=== PATIENT | female | born 1940 | race Caucasian/White ===

== ENCOUNTER 2018-12-16 10:50 | Inpatient (IN) ==
[2018-12-10 17:49] LABS: Appearance,Urine CLEAR; Bilirubin,Urine NEG (NEG); Color,Urine STRAW; Glucose,Urine (UA) NEGATIVE (NEG); Leukocyte Esterase,Urine NEG /uL (NEG); Protein,Urine NEG (NEG); Specific Gravity,Urine 1.013 (1.000-1.035); Urine Blood NEG mg/dL (<0.03); Urobilinogen,Urine NEG (NEG)
[2018-12-10 18:50] LABS: Basophils # (Auto) 0 K/mcL (0.0-0.3); Basophils % (Auto) 0.6 % (0.0-2.0); Eosinophils # (Auto) 0.3 K/mcL (0.0-0.7); Eosinophils % (Auto) 3.2 % (0.0-7.0); Granulocytes % (Auto) 70.3 % (38.0-78.0); Lymphocytes # (Auto) 1.5 K/mcL (1.5-4.8); Lymphocytes % (Auto) 17.4 % (15.5-49.0); Mean Corpuscular HGB Conc 32.9 g/dL (31.0-36.0); Monocytes # (Auto) 0.7 K/mcL (0.1-0.9); Monocytes % (Auto) 8.5 % (1.0-12.0); Platelet Count 219 K/mcL (140-440); RBC 4.51 M/mcL (4.00-5.20); Red Cell Distribution Width 16.3 % (11.5-14.5)
[2018-12-10 19:34] LABS: Hemoglobin A1C 6.9 % HGB (4.0-6.0)
[2018-12-10 20:29] LABS: Blood Urea Nitrogen 33 mg/dl (8-23)
[~2018-12-16 10:50] MED LIST: 0.9 % SODIUM CHLORIDE 9 ML, KETOROLAC 30 MG, ROPIVACAINE HCL/PF 49.5 ML, EPINEPHrine 0.... IJ SCH; CELECOXIB 200 MG CAPSULE PO SCH; PREGABALIN 75 MG CAPSULE PO SCH; ceFAZolin 1 GM VIAL IV SCH; oxyCODONE 10 MG TAB.ER.12H PO SCH
[2018-12-16] MEDS ORDERED: KETAMINE 100 MG/ML ML IV ONE (13:50)
[2018-12-16] MEDS ORDERED: ONDANSETRON 4 MG/2 ML VIAL IV ONE (13:50)
[2018-12-16] MEDS ORDERED: ROPIVACAINE HCL/PF 30 ML VIAL IJ ONE (13:50)
[2018-12-16] MEDS ORDERED: PHENYLEPHRINE 10 MG/ML VIAL IV ONE (13:50)
[2018-12-16] MEDS ORDERED: TRANEXAMIC ACID 1,000 MG/10 ML VIAL IV ONE (13:50)
[2018-12-16] MEDS ORDERED: MIDAZOLAM 5 MG/5 ML VIAL IV ONE (13:50)
[2018-12-16] MEDS ORDERED: GLYCOPYRROLATE 0.2 MG/ML VIAL IV ONE (13:50)
[2018-12-16] MEDS ORDERED: EPINEPHrine 1 MG/ML AMPUL IV ONE (13:50)
[2018-12-16] MEDS ORDERED: LIDOCAINE HCL/PF 100 MG/5 ML SYRINGE IV ONE (13:50)
[2018-12-16] MEDS ORDERED: PROPOFOL 200 MG/20 ML VIAL IV ONE (13:50)
[2018-12-16] MEDS ORDERED: GENTAMICIN SULFATE 800 MG/20 ML VIAL IR ONE (14:28)
[2018-12-16] MEDS ORDERED: MEPERIDINE 25 MG/ML SYRINGE IV PRN (15:52)
[2018-12-16] MEDS ORDERED: ACETAMINOPHEN 1,000 MG/100 ML BOTTLE IV ONE (15:52)
[2018-12-16] MEDS ORDERED: METHOCARBAMOL 1,000 MG/10 ML VIAL IV PRN (15:52)
[2018-12-16] MEDS ORDERED: IPRATROPIUM/ALBUTEROL 3 ML AMPUL.NEB NEB PRN (15:52)
[2018-12-16] MEDS ORDERED: ONDANSETRON 4 MG/2 ML VIAL IV PRN ×2 (15:52→15:56)
[2018-12-16] MEDS ORDERED: oxyCODONE/APAP 10/325MG TABLET PO PRN (15:54)
--- NOTE | 2018-12-16 15:54 | Brief Operative Note ---
Pre-op diagnosis: right knee oa Post-op diagnosis: same Procedure: right total knee arthroplasty Grafts/Implants: Yes Anesthesia: spinal Complications: none Surgeon: Roland Recinos Ceramic Tile Setter: Otilia Mendoza Estimated blood loss (cc): 150 Tourniquet Time (Minutes): 70 Specimens Removed/Pathology: none sent Condition: stable Disposition: PACU
[2018-12-16] MEDS ORDERED: FLEETS ADULT ENEMA PR PRN (15:56)
[2018-12-16] MEDS ORDERED: MAGNESIUM HYDROXIDE 30 ML ORAL.SUSP PO PRN (15:56)
[2018-12-16] MEDS ORDERED: BISACODYL 10 MG SUPP.RECT PR PRN (15:56)
[2018-12-16] MEDS ORDERED: oxyCODONE HCL 5 MG TABLET PO PRN (15:56)
[2018-12-16] MEDS ORDERED: POLYETHYLENE GLYCOL 3350 17 GM PACKET PO PRN (15:56)
[2018-12-16] MEDS ORDERED: ONDANSETRON 4 MG ODT TABLET SL PRN (15:56)
[2018-12-16] MEDS ORDERED: DEXTROSE 31 GM ORAL.SUSP PO PRN (15:56)
[2018-12-16] MEDS ORDERED: DEXTROSE 50% 50 ML VIAL IV PRN (15:56)
[2018-12-16] MEDS ORDERED: TRANEXAMIC ACID 1,000 MG/10 ML VIAL IV SCH (15:56)
[2018-12-16] MEDS ORDERED: BENZOCAINE/MENTHOL 1 LOZENGE PO PRN (15:56)
[2018-12-16] MEDS ORDERED: LACTATED RINGERS 1,000 ML IV SCH (16:00)
[2018-12-16] MEDS: fentaNYL 100 MCG/2 ML VIAL IV PRN ×4 (16:30→16:48)
--- NOTE | 2018-12-16 17:18 | XRay Report ---
CLINICAL INFORMATION: Postsurgical follow-up TECHNIQUE: AP and a stable lateral portable right knee COMPARISON: None. FINDINGS: Status post right total knee arthroplasty. Alignment is anatomic. There is postsurgical soft tissue and intra-articular gas IMPRESSION: Status post right total knee arthroplasty Interpreted and Authenticated by: Roland Alvarez 12/16/18
[2018-12-16] MEDS: oxyCODONE/APAP 10/325MG TABLET PO PRN ×2 (17:36→23:50)
[2018-12-16] MEDS: 0.9 % SODIUM CHLORIDE 1,000 ML IV SCH (17:38)
[2018-12-16] MEDS ORDERED: KETOROLAC 15 MG/ML VIAL IV SCH (18:00)
[2018-12-16] MEDS: ATORVASTATIN 20 MG TABLET PO SCH (18:12)
[2018-12-16] MEDS: INSULIN LISPRO 1 UNIT/0.01 ML UNIT SQ SCH ×2 (18:14→21:21)
[2018-12-16] MEDS ORDERED: traZODone HCL 50 MG TABLET PO PRN (21:00)
[2018-12-16] MEDS: DOCUSATE SODIUM 100 MG CAPSULE PO SCH (21:03)
[2018-12-16] MEDS: SENNOSIDES 1 TABLET PO SCH (21:03)
[2018-12-16] MEDS: ASPIRIN 325 MG ENTERIC COATED TABLET PO SCH (21:03)
[2018-12-16] MEDS: METOPROLOL TARTRATE 25 MG TABLET PO SCH (21:03)
[2018-12-16] MEDS: DULoxetine 30 MG CAPSULE PO SCH (21:03)
[2018-12-16] MEDS: OXYBUTYNIN CHLORIDE 5 MG TAB.XL.24H PO SCH (21:04)
[2018-12-16] MEDS: ceFAZolin 1 GM VIAL IV SCH (21:06)
[2018-12-16] MEDS: 0.9 % SODIUM CHLORIDE 10 ML SYRINGE IV SCH (21:23)
[2018-12-17] MEDS: 0.9 % SODIUM CHLORIDE 1,000 ML IV SCH ×3 (01:05→17:55)
[2018-12-17] MEDS: METHOCARBAMOL 750 MG TABLET PO PRN ×3 (02:02→19:27)
[2018-12-17] MEDS: ceFAZolin 1 GM VIAL IV SCH (06:04)
[2018-12-17] MEDS: 0.9 % SODIUM CHLORIDE 10 ML SYRINGE IV SCH ×3 (06:05→21:17)
--- NOTE | 2018-12-17 06:55 | Orthopedic Progress Note ---
Subjective Patient information: Note initiated : 12/17/18 at 6:53 am Service Date, if different from initiated Date: [] Patient: Ruby Colvin 78 y/o F admitted on 12/16/18 for Right Total Knee Arthroplasty. Chief Complaint: [POD #1 s/p right TKA Doing well, minimal pain. Ambulating okay. Denies CP, SOB, numbness, tingling or calf pain. Wishes to go to SNF as she has no one at home to help her.] Objective Vital signs: Vital Signs Temp Pulse Resp BP Pulse Ox 12/17/18 06:44 98.4 F 59 L 16 116/57 93 12/17/18 04:45 93 12/17/18 02:30 98.1 F 56 L 12 111/55 98 12/16/18 23:12 97.7 F 53 L 12 122/42 99 12/16/18 20:07 97.6 F 64 12 116/51 97 12/16/18 19:34 97 12/16/18 19:06 55 L 128/64 98 12/16/18 18:35 94 H 134/67 99 12/16/18 18:34 96 12/16/18 18:05 69 133/61 98 12/16/18 17:51 74 116/66 97 12/16/18 17:35 95 H 128/65 98 12/16/18 17:20 92 H 134/82 94 12/16/18 17:06 97.1 F 109 H 14 120/54 97 12/16/18 17:00 108 H 13 138/58 97 12/16/18 16:45 100 H 13 146/57 96 12/16/18 16:30 108 H 17 155/81 99 12/16/18 16:20 99.3 F H 109 H 17 141/67 99 12/16/18 16:15 103 H 10 L 135/75 99 12/16/18 16:10 99.3 F H 109 H 10 L 121/49 94 12/16/18 12:00 97.0 F 57 L 110/55 96 Intake and Output 12/16/18 12/17/18 12/17/18 21:59 05:59 13:59 Intake Total 3400 1160 Output Total 235 450 Balance 3165 710 Intake: IV 100 Oral 1300 1160 IV - Manual Only 1999 Output: Urine Catheter Amount 125 450 Estimated Blood Loss 110 Other: Urine Appearance Sediment Clear Uretheral (Marin) Clear Urine Color Bright Yellow Straw Uretheral (Marin) Straw Urine Odor Strong Normal Uretheral (Marin) Strong Weight 226 lb 8 oz Intake & Output: Intake & Output 12/16/18 12/17/18 12/17/18 21:59 05:59 13:59 Intake Total 3400 1160 Output Total 235 450 Balance 3165 710 Weight 226 lb 8 oz Intake: IV 100 Oral 1300 1160 IV - Manual Only 1999 Output: Urine Catheter Amount 125 450 Estimated Blood Loss 110 Other: Urine Appearance Sediment Clear Uretheral (Marin) Clear Urine Color Bright Yellow Straw Uretheral (Marin) Straw Urine Odor Strong Normal Uretheral (Marin) Strong Incision: Yes healing, No draining, No red, No swollen, No inflamed, Yes clean and dry Incision clean and dry: Yes Dressing: Yes clean, Yes dry, Yes intact Weight bearing status: as tolerated Range of motion: full foot and ankle Neurological exam IM: Yes alert, Yes oriented X3, Yes motor sensory intact, Yes neurovascular intact Extremities exam IM: Yes normal capillary refill, Yes normal inspection, Yes Foot pink and warm, Yes neurovascular intact - Periperhal Pulses Peripheral pulses: 2+: dorsalis pedis (L), dorsalis pedis (R), posterior tibialis (L), posterior tibialis (R) - Labs CBC & BMP: 12/17/18 04:31 12/10/18 15:46 Labs: Orthopedic Labs 12/10/18 15:46 PT 13.3 INR 1.0 12/17/18 12/10/18 04:31 15:46 Hgb 10.2 L 12.6 Hct 31.0 L 38.3 Assessment and Plan (1) Knee osteoarthritis POD #1 s/p right TKA: -d/c planning to SNF. 4 day auth stay -pain control -ASA 325mg BID x 4 weeks for DVT prophylaxis -WBAT -dermabond -PT Status: Acute
--- NOTE | 2018-12-17 07:12 | Operative Note ---
DATE OF OPERATION: 12/16/2018 PREOPERATIVE DIAGNOSIS: Degenerative joint disease, right knee. POSTOPERATIVE DIAGNOSIS: Degenerative joint disease, right knee. PROCEDURE: Right total knee arthroplasty. SURGEON: Melissa Recinos M.D. AGRICULTURAL SERVICE TECHNICIAN SURGEON: Otilia Mendoza PA-C ANESTHESIA: Spinal with LMA assist. ESTIMATED BLOOD LOSS: 150 mL COMPLICATIONS: None noted. SPECIMENS REMOVED: None. DRAINS: None. TOURNIQUET TIME: 70 minutes at 300 mmHg. IMPLANTS: DePuy CMW2 gentamycin bone cement 20 grams x5, DePuy Attune patella medialized dome, 35 mm cemented AOX, DePuy Attune femoral posterior stabilized size 6 narrow right cemented, DePuy Attune tibial insert fixed bearing posterior stabilized size 6, 6 mm AOX, DePuy Attune revision with cemented stem 14 x 50, DePuy Attune revision tibial based fixed bearing size 5 cemented. INDICATIONS: The patient has had a long-standing history of worsening pain in the knee that has failed conservative treatment. Radiographs have confirmed advanced degenerative joint disease. After a long discussion about treatment options, the patient elected to proceed with a knee arthroplasty. The risks and benefits were discussed with the patient in detail including, but not limited to, the risks of anesthesia, problems with the heart or lungs related to anesthesia, infection, compromise or injury to the nerves and blood vessels, deep venous thrombosis, pulmonary embolism, pneumonia, continued pain after surgery, worsening pain or symptoms after surgery, swelling, loss of motion, instability, leg length discrepancy, and need for repeat surgery. DESCRIPTION OF PROCEDURE: The patient was seen in the pre-anesthesia waiting room where all questions were answered and the correct side and site were identified and marked. The patient was transferred to the operating room and administered the anesthetic and given pre-operative antibiotics. A time-out was then called. The extremity was prepped and draped, exsanguinated, and the tourniquet was inflated to 300 mmHg. A midline skin incision was then made with a standard medial parapatellar arthrotomy. Debridement of the menisci, ACL, and PCL was performed followed by balancing releases in the medial lateral plane. We then established intramedullary access to both the femur and tibia in a standard fashion. The femoral guide lion was initially placed with the distal femoral guide, pinned into place, and the distal femoral cut was performed and checked with a flat plate. We then turned our attention to the tibia. The intramedullary guide was placed with the proximal tibial cutting block. The block was appropriately positioned off the affected side, varus and valgus was checked with the extra-medullary guide, and the block was pinned into place. The proximal tibial cut was performed and the tibia was prepared for the tibial implant with appropriate rotation. The tibia, femur, and posterior compartment were debrided of osteophytes, loose bodies, and meniscal fragments We then used the gap balancing technique to balance extension with the first two cuts and good balancing was obtained with a 10 millimeter gap block. We turned our attention back to the femur and used the referencing block and implant to size appropriately. Using the gap balancing technique for the flexion space we set our rotation of the femur off the tibial cut. Anesthesia gave the patient 1 gram of Tranexamic Acid via an intravenous route. We placed the 4 in 1 cutting block and made anterior, posterior, and chamfer cuts. Box plasty cuts were then made in a standard fashion for the posterior stabilized prosthesis. We then completed osteophyte release and posterior capsule release from the posterior compartment. Trials were placed and we chose the polyethylene insert thickness that provided the best stability in all planes. With the trials in place, we did a measured resection for a resurfacing patella. We sized the patella and placed the patella trial and performed a lateral facetectomy with the saw and rongeur. Good tracking was obtained. We removed all trials, irrigated and dried all cut surfaces. We cemented the components into place including tibia, femur and patella. We placed a trial liner and held the knee in full extension with the patella compressed while the cement cured. We then removed all excess cement and placed the final polyethylene tibiofemoral component. Irrigation with 3 liters of antibiotic saline was then performed using jet-lavage. We let the tourniquet down and coagulated bleeding vessels. We injected a 100 cubic centimeter volume including Ropivacaine 49.25 cubic centimeters at 5 milligrams per cubic centimeter, Ketorolac 30 milligrams, and Epinephrine 0.5 milligrams into 100 cubic centimeters volume of normal saline. We closed the retinaculum with #2 Stratafix and #0 Vicryl. We closed the subcutaneous tissue and skin in layers out to Dermabond on the skin. A sterile pressure dressing was applied. All needle and sponge counts were correct. The patient was transferred to the recovery room in stable condition. [email or web address] Job ID: [id number] Doc ID: [id number] Melissa Recinos MD
[2018-12-17] MEDS: GLIMEPIRIDE 2 MG TABLET PO SCH (07:19)
[2018-12-17] MEDS: oxyCODONE/APAP 10/325MG TABLET PO PRN ×4 (07:19→21:25)
[2018-12-17] MEDS: LEVOTHYROXINE SODIUM 112 MCG TABLET PO SCH (07:20)
[2018-12-17] MEDS: PANTOPRAZOLE 40 MG TABLET PO SCH (07:20)
[2018-12-17] MEDS: ASPIRIN 325 MG ENTERIC COATED TABLET PO SCH ×2 (09:09→21:14)
[2018-12-17] MEDS: DULoxetine 30 MG CAPSULE PO SCH ×2 (09:11→21:14)
[2018-12-17] MEDS: DOCUSATE SODIUM 100 MG CAPSULE PO SCH ×2 (09:11→21:14)
[2018-12-17] MEDS: lamoTRIgine 100 MG TABLET PO SCH (09:12)
[2018-12-17] MEDS: LISINOPRIL 10 MG TABLET PO SCH (09:13)
[2018-12-17] MEDS: FUROSEMIDE 20 MG TABLET PO SCH (09:13)
[2018-12-17] MEDS: METOPROLOL TARTRATE 25 MG TABLET PO SCH ×2 (09:13→21:15)
[2018-12-17] MEDS: INSULIN LISPRO 1 UNIT/0.01 ML UNIT SQ SCH ×4 (09:23→21:23)
[2018-12-17] MEDS: POTASSIUM CHLORIDE 10 MEQ TABLET PO SCH (12:04)
[2018-12-17] MEDS: ATORVASTATIN 20 MG TABLET PO SCH (17:23)
[2018-12-17] MEDS: Nebivolol Hcl [Bystolic] 10 MG Tablet PO SCH (17:55)
[2018-12-17] MEDS: OXYBUTYNIN CHLORIDE 5 MG TAB.XL.24H PO SCH (21:14)
[2018-12-17] MEDS: SENNOSIDES 1 TABLET PO SCH (21:15)
[2018-12-18] MEDS: oxyCODONE/APAP 10/325MG TABLET PO PRN ×3 (01:24→11:13)
--- NOTE | 2018-12-18 07:00 | Orthopedic Progress Note ---
Subjective Patient information: Note initiated : 12/18/18 at 6:59 am Service Date, if different from initiated Date: [] Patient: Ruby Colvin 78 y/o F admitted on 12/16/18 for Right Total Knee Arthroplasty. Chief Complaint: [] Interval history: doing ok. pain improving. slow to mobilize Objective Vital signs: Vital Signs Temp Pulse Resp BP Pulse Ox 12/18/18 02:45 98.3 F 69 20 145/65 94 12/18/18 00:00 98.3 F 62 20 146/62 92 12/17/18 19:36 98.9 F 73 20 117/44 93 12/17/18 15:46 97.8 F 55 L 16 112/61 92 12/17/18 11:10 97.5 F 62 18 103/52 91 Intake and Output 12/17/18 12/18/18 12/18/18 21:59 05:59 13:59 Intake Total 1909 100 Output Total 3650 2350 Balance -1740 -2250 Intake: Oral 1909 100 Output: Urine Catheter Amount 1175 Uretheral (Marin) 300 Void Amount 2475 2350 Other: Meal Dinner Percent of Meal Consumed 100% Urine Appearance Clear Clear Uretheral (Marin) Clear Urine Color Straw Pale Uretheral (Marin) Pale Urine Odor Normal Normal Weight 226 lb Intake & Output: Intake & Output 12/17/18 12/18/18 12/18/18 21:59 05:59 13:59 Intake Total 1910 100 Output Total 3650 2350 Balance -1740 -2250 Weight 226 lb Intake: Oral 1909 100 Output: Urine Catheter Amount 1175 Uretheral (Marin) 300 Void Amount 2475 2350 Other: Meal Dinner Percent of Meal Consumed 100% Urine Appearance Clear Clear Uretheral (Marin) Clear Urine Color Straw Pale Uretheral (Marin) Pale Urine Odor Normal Normal Incision: Yes healing Incision clean and dry: Yes Dressing: Yes clean, Yes dry, Yes intact Weight bearing status: full Neurological exam IM: Yes abnormal gait, Yes alert, Yes oriented X3, Yes motor sensory intact, Yes neurovascular intact Extremities exam IM: No calf tenderness, Yes Foot pink and warm, Yes neurovascular intact - Labs CBC & BMP: 12/17/18 04:31 12/10/18 15:46 Labs: Orthopedic Labs 12/10/18 15:46 PT 13.3 INR 1.0 12/18/18 12/17/18 12/10/18 06:55 04:31 15:46 Hgb Pending 10.2 L 12.6 Hct Pending 31.0 L 38.3 Assessment and Plan (1) Knee osteoarthritis pod 2 s/p right tka wbat pain control dvt prophylaxis rehab when bed available Status: Acute
--- NOTE | 2018-12-18 07:01 | Discharge Summary ---
Ortho Discharge - TKA - Patient Instructions Diet: Regular Diet Activity: activity as tolerated, weight bearing as tolerated Total Knee Protocol: For Total Knee: Start ROM WILMER with stationary bike or rocking chair. Work on gaining full extension of knee. Posterior dislocation precautions provided. Hip abductor strengthening and gait training instructions provided. Apply Cryocuff as instructed. Dressing Care: May shower in 2 days Patient Education: Total Knee Replacement (DC) - Problem Maintenance (1) Knee osteoarthritis Status: Acute - Follow Up Plan Follow Up Appointments: Otilia Mendoza PA-C [Physician Book Mender] - 12/31/18 11:20 am Disposition: Xfer SNF Prognosis: Good Rehab Potential: Good I certify that the patient requires SNF services: Yes Overall status at discharge: patient is progressing back to baseline
[2018-12-18] MEDS: 0.9 % SODIUM CHLORIDE 10 ML SYRINGE IV SCH (07:33)
[2018-12-18] MEDS: PANTOPRAZOLE 40 MG TABLET PO SCH (07:33)
[2018-12-18] MEDS: LEVOTHYROXINE SODIUM 112 MCG TABLET PO SCH (07:33)
[2018-12-18] MEDS: GLIMEPIRIDE 2 MG TABLET PO SCH (07:34)
[2018-12-18] MEDS: INSULIN LISPRO 1 UNIT/0.01 ML UNIT SQ SCH (07:49)
[2018-12-18] MEDS: lamoTRIgine 100 MG TABLET PO SCH (08:44)
[2018-12-18] MEDS: METOPROLOL TARTRATE 25 MG TABLET PO SCH (08:44)
[2018-12-18] MEDS: DULoxetine 30 MG CAPSULE PO SCH (08:45)
[2018-12-18] MEDS: POTASSIUM CHLORIDE 10 MEQ TABLET PO SCH (08:45)
[2018-12-18] MEDS: FUROSEMIDE 20 MG TABLET PO SCH (08:45)
[2018-12-18] MEDS: LISINOPRIL 10 MG TABLET PO SCH (08:45)
[2018-12-18] MEDS: DOCUSATE SODIUM 100 MG CAPSULE PO SCH (08:45)
[2018-12-18] MEDS: ASPIRIN 325 MG ENTERIC COATED TABLET PO SCH (08:46)
[2018-12-18] MEDS: Nebivolol Hcl [Bystolic] 10 MG Tablet PO SCH (08:46)
== END 2018-12-18 11:25 | DRG 470 ==
LOC: MEDSUR 10:50
PROVIDERS: ADMIT Orthopaedic Surgery Sports Medicine; ATTEND Orthopaedic Surgery Sports Medicine

== ENCOUNTER 2021-03-01 12:42 | Inpatient (IN) ==
[2021-03-01] MEDS ORDERED: IOPAMIDOL 100 ML BOTTLE IV ONE (12:43)
[2021-03-01] MEDS ORDERED: ADENOSINE 3 MG/ML VIAL IV ONE ×2 (13:06→13:07)
[2021-03-01] MEDS ORDERED: 0.9 % SODIUM CHLORIDE 1,000 ML IV ONE ×3 (13:07→16:29)
[2021-03-01] MEDS ORDERED: ONDANSETRON 4 MG/2 ML VIAL IV ONE (13:07)
[2021-03-01] MEDS ORDERED: morphine 2 MG/ML VIAL IV PRN (13:07)
[2021-03-01] MEDS ORDERED: HYDROmorphone 0.5 MG/0.5 ML SYRINGE IV ONE (13:13)
--- NOTE | 2021-03-01 13:23 | Emergency Department Note ---
Abdominal Pain HPI General Chief Complaint: Abdominal Pain Stated Complaint: LLQ pain Time Seen by Provider: 03/01/21 13:07 Source: patient, family (Daughter at bedside), RN notes reviewed and old records reviewed Mode of arrival: EMS Limitations: no limitations History of Present Illness HPI Narrative: Narrative: 80-year-old female arrives with her daughter complaining of increasing abdominal pain x4 days. She describes it as upper abdominal pain on bilateral upper quadrants no nausea or vomiting no fevers positive chills. She was constipated for the last 4 days and had multiple bowel movements night prior to arrival. She took lactulose to help her with her bowel movements. No hematemesis coffee- ground emesis no bright red blood per rectum black tarry stools or diarrhea no hematuria dysuria or frequency. Patient has chronic shortness of breath but it has been worsening for the last 2 days. Patient has past medical history of tachycardias and was noted to be in a supraventricular tachycardia at a rate of 155 upon arrival. MD Complaint: abdominal pain Onset (ago): day(s) (4 days) Consistency: constant Location: LUQ and RUQ Severity: severe Quality: cramping and aching Radiation: back Migration to: no migration Improves with: nothing Worsens with: movement Associated symptoms: Reports chills, constipation and other (Was noted to be in PSVT at 155 upon arrival); Denies nausea, vomiting, diarrhea, fever, dysuria, hematemesis, hematochezia, melena, hematuria, anorexia and syncope Treatments prior to arrival: prescription analgesics Related Data Home Medications Medication Instructions Recorded Confirmed aspirin 81 mg PO DAILY@1800 05/25/15 01/24/21 cholecalciferol (vitamin D3) 2,000 unit PO DAILY@1800 10/31/17 01/24/21 polyethylene glycol 3350 17 gram 17 g PO QHS PRN each 10/01/19 01/24/21 oral powder packet Previous Rx's Medication Instructions Recorded lisinopril 10 mg tablet 10 mg PO DAILY #90 tab 09/11/19 Attends discreet bladder control #1 ea 02/29/20 pads ultimate #8 metaxalone 800 mg tablet 800 mg PO TID PRN #90 tab 07/13/20 furosemide 20 mg tablet 20 mg PO QAM #90 tab 09/20/20 lamotrigine 150 mg tablet See Rx Instructions .ROUTE 09/20/20 .COMPLEX #90 tablet levothyroxine 112 mcg tablet 112 mcg PO QDAY #90 tab 09/20/20 potassium chloride 10 mEq 10 meq PO QAMCC #90 tab 09/20/20 tablet,extended release ferrous sulfate 325 mg (65 mg 325 mg PO QDAY #90 tab 09/26/20 iron) tablet blood sugar diagnostic #200 each 09/27/20 lorazepam 0.5 mg tablet 0.5 mg PO BID PRN #30 tab 09/27/20 metoprolol tartrate 25 mg tablet 25 mg PO QDAY #30 tab 09/27/20 duloxetine 60 mg capsule,delayed 60 mg PO BID #60 cap 11/28/20 release pantoprazole 40 mg tablet,delayed 40 mg PO ACB #90 tab 11/28/20 release glimepiride 2 mg tablet See Rx Instructions .ROUTE 12/02/20 .COMPLEX #90 tab sitagliptin 100 mg tablet 100 mg PO QDAY #90 tab 01/05/21 suvorexant 15 mg tablet 15 mg PO HS #30 tab 01/24/21 nebivolol 10 mg tablet See Rx Instructions .ROUTE 01/27/21 .COMPLEX #90 tablet atorvastatin 40 mg tablet 40 mg PO DAILY@1800 #90 tab 02/08/21 fenofibrate nanocrystallized 48 mg See Rx Instructions .ROUTE 02/20/21 tablet .COMPLEX #30 tab oxycodone-acetaminophen 10 mg-325 1 tab PO QID PRN #120 tab 02/24/21 mg tablet fesoterodine 8 mg tablet,extended See Rx Instructions .ROUTE 02/28/21 release 24 hr .COMPLEX #30 unknown measurement unit code: tablet Allergies Allergy/AdvReac Type Severity Reaction Status Date / Time metformin AdvReac Mild Nausea Verified 03/01/21 12:48 morphine AdvReac Mild Agitated Verified 03/01/21 12:48 Review of Systems ROS ROS Narrative: Narrative: Constitutional: Reports chills; Denies fever and weakness Eyes: Denies vision change ENT ED: Denies throat pain Cardiovascular: Reports palpitations, dyspnea on exertion, orthopnea, edema and paroxysmal nocturnal dyspnea; Denies chest pain Respiratory: Reports shortness of breath; Denies cough, wheezes, phlegm, hemoptysis and stridor Gastrointestinal: Reports abdominal pain and constipation; Denies nausea, vomiting, diarrhea, hematochezia, melena, hematemesis, acid reflux and heart burn Genitourinary: Denies dysuria Musculoskeletal: Reports back pain Integumentary: Denies rash Neurological: Denies headache Psychiatric: Denies depression Endocrine: Reports fatigue Hematological/Lymphatic: Denies easy bruising Allergic/Immunologic: Denies urticaria PFSH Narrative Patient History Narrative: Narrative: Medical/Surgical/Family History All Active Problems (Updated 03/01/21 @ 15:01 by Regulo Mcduffie MD) Paroxysmal supraventricular tachycardia by electrocardiogram (ECG) (Acute) Abdominal pain (Acute) Renal cell carcinoma (Acute) Acute hyponatremia (Acute) Acute on chronic renal insufficiency (Acute) GERD (gastroesophageal reflux disease) (Acute) Tongue abnormality (Acute) Medication monitoring encounter (Acute) Type 2 diabetes mellitus without complications (Chronic) Degenerative disc disease (Chronic) Obesity (Chronic) History of pheochromocytoma (Chronic) Osteoporosis (Chronic) Paresthesia (Chronic) Back pain with radiculopathy (Chronic) Stress (Chronic) Hypertriglyceridemia (Chronic) Hyperlipidemia (Chronic) Sleep apnea (Chronic) Shoulder pain (Chronic) Insomnia (Chronic) Headache (Chronic) Well adult exam (Chronic) Depression (Chronic) Anxiety (Chronic) Synovial cyst of popliteal space [Pack], right knee (Chronic) Bilateral leg edema (Chronic) Fatigue (Chronic) Hypercalcemia (Chronic) Pulmonary nodule (Chronic) Hypothyroidism (Chronic) COPD (chronic obstructive pulmonary disease) (Chronic) Unspecified disorder of parathyroid gland (Chronic) Memory impairment (Chronic) Onychomycosis of toenail (Chronic) 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) Urinary incontinence (Chronic) Anemia (Chronic) Weakness (Chronic) Constipation (Chronic) Contusion (Chronic) Fall against sharp object (Chronic) Dehydration (Chronic) Sinus tachycardia (Chronic) Narrow complex tachycardia (Chronic) Atrial tachycardia (Chronic) Knee osteoarthritis (Chronic) Knee pain, right (Chronic) Medical History (Updated 03/01/21 @ 15:01 by Regulo Mcduffie MD) Anemia Anxiety Atrial tachycardia Back pain with radiculopathy Bilateral leg edema CKD stage 3 secondary to diabetes Constipation Contusion COPD (chronic obstructive pulmonary disease) Degenerative disc disease Dehydration Depression Fall against sharp object Fatigue Headache History of pheochromocytoma Hypercalcemia Hyperlipidemia Hypertriglyceridemia Hypothyroidism Insomnia Knee osteoarthritis Knee pain, right Memory impairment Narrow complex tachycardia Obesity Onychomycosis of toenail Osteoporosis Paresthesia Pulmonary nodule Shoulder pain Sinus tachycardia Sleep apnea Stress Synovial cyst of popliteal space [Pack], right knee Unspecified disorder of parathyroid gland Urinary incontinence Weakness Well adult exam Surgical History Amputated toe of right foot (~12/16/17) amputation of right fifth toe-12/16/17 Dr. Gustavo Garcia History of abdominal hysterectomy (~2008) History of knee surgery (~11/2018) knee surgery-12/16 Dr. Recinos History of lumbar fusion (~02/2010) Dr Romo History of nephrectomy, right History of parathyroidectomy (~05/2015) May 2015 removal of parathyroid adenoma by Dr. Napoles in [place] History of partial adrenalectomy Removed left adrenal gland Pheochromocytoma Family History Grandmother Diabetes Hypertension Son Diabetes Hypertension Daughter Hypertension Mother Osteoporosis Cancer Father Cancer Brother Cancer Social History Smoking Status: Never smoker Exam Narrative Narrative: Narrative: General Limitations: no limitations General appearance: Present alert, in distress and obese Head Head: Present atraumatic and normocephalic Eye Eye: Present normal appearance, PERRL and EOMI ENT ENT: Present normal exam and mucous membranes dry Neck Neck: Present normal inspection and full ROM Chest Chest: Present normal inspection; Absent tenderness Respiratory Respiratory: Present decreased breath sounds; Absent respiratory distress Cardiovascular Cardiovascular: Present normal rhythm and tachycardia; Absent systolic murmur Adbominal Abdominal: Present soft, tenderness, diminished bowel sounds, Mccain's sign and hernia (Left Ing); Absent distention, guarding, rebound, tenderness at McBurney's Point, ascites, mass and pulsatile mass Extremities Extremities: Present normal inspection, full ROM and pedal edema; Absent tenderness and pretibial edema Back Back: Present normal inspection; Absent CVA tenderness (R) and CVA tenderness (L) Neurological Neurological: Present alert and oriented X3 Psychiatric Psychiatric: Present normal affect and normal mood Skin Skin: Present warm (WNL); Absent rash Course Reevaluation(s) Reevaluation #1: Patient received 6 mg of Adenocard and then 12 mg Adenocard at 1:03, patient's heart rate dropped down to 90 and it was sustained for 1 to 2 minutes but then the patient's heart rate went back up to 155 again. I will give her a liter of IV normal saline the says her tachycardia Vital Signs Vital signs: Vital Signs Temperature 100.3 F H 03/01/21 12:43 Pulse Rate 157 H 03/01/21 12:43 Respiratory Rate 24 H 03/01/21 12:43 Blood Pressure 144/123 03/01/21 12:43 Pulse Oximetry (%) 97 03/01/21 12:43 Temperature 99.3 F H 03/01/21 13:10 Pulse Rate 132 H 03/01/21 15:15 Respiratory Rate 16 03/01/21 15:15 Blood Pressure 118/68 03/01/21 15:15 Pulse Oximetry (%) 94 03/01/21 15:15 MDM MDM Narrative Medical decision making narrative: Narrative: 80-year-old female arrives to the emergency department 4 days history of abdominal pain with supraventricular tachycardia rate of 155. Patient did respond to Adenocard but the rate would not hold. After 2 L of IV normal saline the rate is now in the 120s patient has abdominal CT with new onset renal cell carcinoma hyperglycemia hyponatremia elevated white count with left shift patient received IV fluids pain medicines IV antibiotics discussed this patient with Dr. Reyes of urology who graciously agreed to patient in the emergency department and will admit to the hospitalist. Lab Data Lab results reviewed: Yes I reviewed the patient's lab results. Result diagrams: 03/01/21 13:36 03/01/21 13:36 Labs: Lab Results 03/01/21 03/01/21 03/01/21 Range/Units 13:36 13:36 13:36 WBC 15.8 H (4.5-11.0) K/mcL RBC 4.35 (4.00-5.20) M/mcL Hgb 12.4 (12.0-15.0) g/dL Hct 36.8 (36.0-48.0) % MCV 84.6 (80.0-100.0) fL MCH 28.5 (26.0-34.0) pg MCHC 33.7 (31.0-36.0) g/dL RDW 13.1 (11.5-14.5) % Plt Count 166 (140-440) K/mcL MPV 9.0 (7.4-10.4) fL Neut % (Auto) 90.9 H (38.0-78.0) % Lymph % (Auto) 1.7 L (15.0-49.0) % Chaves % (Auto) 6.5 (1.0-12.0) % Eos % (Auto) 0.6 (0.0-7.0) % Baso % (Auto) 0.3 (0.0-2.0) % Lymph # (Auto) 0.27 L (1.50-4.80) K/mcL Chaves # (Auto) 1.03 H (0.10-0.90) K/mcL Eos # (Auto) 0.10 (0.00-0.70) K/mcL Baso # (Auto) 0.04 (0.00-0.20) K/mcL Absolute Neutrophils 14.35 H (1.80-8.00) K/mcL VBG Lactic Acid 2.7 H (0.5-2.0) mmol/L Sodium 122 L (133-145) mmol/L Potassium 4.2 (3.3-5.1) mmol/L Chloride 87 L (96-108) mmol/L Carbon Dioxide 21 L (22-30) mmol/L Anion Gap 14.0 (8.0-16.0) BUN 44 H (8-23) mg/dL Creatinine 1.7 H (0.6-1.1) mg/dL POC Creatinine 1.9 H (0.6-1.2) mg/dL GFR Calculation 28 Glucose 355 H (70-105) mg/dL Calcium 8.4 L (8.6-10.4) mg/dL Total Bilirubin 0.7 (0.1-1.0) mg/dL AST 30 (<32) U/L ALT 17 (<40) U/L Alkaline Phosphatase 110 (39-117) U/L Troponin T (<0.03) ng/mL Total Protein 6.5 (5.9-8.4) gm/dL Albumin 3.1 L (3.2-5.2) gm/dL Globulin 3.4 (2.2-3.7) gm/dL Albumin/Globulin Ratio 0.9 L (1.0-2.3) Lipase 18 (7-60) U/L TSH 1.65 (0.27-5.01) uIU/mL 05/05/21 Range/Units 13:36 WBC (4.5-11.0) K/mcL RBC (4.00-5.20) M/mcL Hgb (12.0-15.0) g/dL Hct (36.0-48.0) % MCV (80.0-100.0) fL MCH (26.0-34.0) pg MCHC (31.0-36.0) g/dL RDW (11.5-14.5) % Plt Count (140-440) K/mcL MPV (7.4-10.4) fL Neut % (Auto) (38.0-78.0) % Lymph % (Auto) (15.0-49.0) % Chaves % (Auto) (1.0-12.0) % Eos % (Auto) (0.0-7.0) % Baso % (Auto) (0.0-2.0) % Lymph # (Auto) (1.50-4.80) K/mcL Chaves # (Auto) (0.10-0.90) K/mcL Eos # (Auto) (0.00-0.70) K/mcL Baso # (Auto) (0.00-0.20) K/mcL Absolute Neutrophils (1.80-8.00) K/mcL VBG Lactic Acid (0.5-2.0) mmol/L Sodium (133-145) mmol/L Potassium (3.3-5.1) mmol/L Chloride (96-108) mmol/L Carbon Dioxide (22-30) mmol/L Anion Gap (8.0-16.0) BUN (8-23) mg/dL Creatinine (0.6-1.1) mg/dL POC Creatinine (0.6-1.2) mg/dL GFR Calculation Glucose (70-105) mg/dL Calcium (8.6-10.4) mg/dL Total Bilirubin (0.1-1.0) mg/dL AST (<32) U/L ALT (<40) U/L Alkaline Phosphatase (39-117) U/L Troponin T < 0.01 (<0.03) ng/mL Total Protein (5.9-8.4) gm/dL Albumin (3.2-5.2) gm/dL Globulin (2.2-3.7) gm/dL Albumin/Globulin Ratio (1.0-2.3) Lipase (7-60) U/L TSH (0.27-5.01) uIU/mL Radiology Data Radiology results reviewed: Yes I reviewed the patient's radiology results. Radiology results narrative: IMPRESSION: 1. 3.2 cm inhomogeneously enhancing well-circumscribed mass in the superior pole of the left kidney-new from prior exam. It is suspicious for recurrent renal cell carcinoma. Pattern may wedge-shaped low-attenuation lesions throughout the remaining renal parenchyma could represent infection lower nephronia or, less likely, renal infarcts (the left renal artery and the segmental arteries appear to be opacified-no evidence of from its. Mild thickening of the transitional epithelium of the left renal pelvis and ureter supportive of pyelonephritis. Please correlate with UA. 2. Right nephrectomy and left adrenalectomy changes. Mild hypertrophy of the right adrenal gland. 3. Large (10 cm) left inguinal hernia which contains mesenteric fat and the left urinary bladder dome. 4. Marked atrophy bilateral gluteus medius muscles-stable Interpreted and Authenticated by: Roland Brooke 03/01/21 CLINICAL INFORMATION: Dyspnea COMPARISON: 02/03/2018 TECHNIQUE: PA and Lateral views FINDINGS: The heart size, mediastinum and pulmonary vessels are unremarkable. Minor bibasilar atelectasis noted.. There are no effusions.. IMPRESSION: Minor bibasilar atelectasis. Interpreted and Authenticated by: Roland Brooke 03/01/21 EKG Data EKG #1: EKG attestation: Yes I reviewed and interpreted this EKG. Rate: tachycardia (155) Rhythm: SVT Voltage: c/w atrial hypertrophy Interpretation: nonspecific ST-T wave changes Pulse Oximetry Data Pulse Ox %: 93 Interpretation: Hypoxic for this patient CC TIME Critical Care Time Critical Care Time: Yes Total Critical Care Time: 45 Attestation: Approximately [45] minutes of critical care time was used in order to assess and manage the high probability of imminent or life threatening deterioration to [heart and kidneys with PSVT abdominal pain and new onset renal cell carcinoma] which required my highest level of preparedness and interventions with frequent patient assessments. This time is excluding time spent on separately billable procedures. Coordination of care with hospitalist and flat grinder operator Discharge Plan Patient/Caregiver Discharge Instructions Pt seen by ANNEALING OPERATOR/PA only: No Clinical Impression: Paroxysmal supraventricular tachycardia by electrocardiogram (ECG), Abdominal pain, Renal cell carcinoma, Type 2 diabetes mellitus without complications, Acute hyponatremia, Acute on chronic renal insufficiency Patient Disposition: Xfer As Inpt ([facility]) Follow up with: Deanna Stuart ARNP [Primary Care Provider] - Prescriptions: No Action ferrous sulfate 325 mg (65 mg iron) tablet 325 mg PO QDAY Qty: 90 RF: 2 lorazepam 0.5 mg tablet 0.5 mg PO BID PRN (Reason: anxiety) Qty: 30 RF: 1 (DME) Contour Test Strips Strip See Rx Instructions .ROUTE .MEDSUPPLY Qty: 200 RF: 11 metoprolol tartrate 25 mg tablet 25 mg PO QDAY Qty: 30 RF: 1 lisinopril 10 mg tablet 10 mg PO DAILY Qty: 90 RF: 0 (DME) Attends discreet bladder control pads ultimate #8 8 Qty: 1 RF: 0 metaxalone 800 mg tablet 800 mg PO TID PRN (Reason: muscle pain) Qty: 90 RF: 3 potassium chloride 10 mEq tablet extended release 10 meq PO QAMCC Qty: 90 RF: 2 levothyroxine 112 mcg tablet 112 mcg PO QDAY Qty: 90 RF: 2 furosemide 20 mg tablet 20 mg PO QAM Qty: 90 RF: 2 lamotrigine 150 mg tablet See Rx Instructions .ROUTE .COMPLEX Qty: 90 RF: 2 duloxetine [Cymbalta] 60 mg capsule,delayed release(DR/EC) 60 mg PO BID Qty: 60 RF: 5 pantoprazole 40 mg tablet,delayed release (DR/EC) 40 mg PO ACB Qty: 90 RF: 2 glimepiride 2 mg tablet See Rx Instructions .ROUTE .COMPLEX Qty: 90 RF: 0 Januvia 100 mg tablet 100 mg PO QDAY Qty: 90 RF: 3 Bystolic 10 mg tablet See Rx Instructions .ROUTE .COMPLEX Qty: 90 RF: 6 atorvastatin 40 mg tablet 40 mg PO DAILY@1800 Qty: 90 RF: 2 fenofibrate nanocrystallized 48 mg tablet See Rx Instructions .ROUTE .COMPLEX Qty: 30 RF: 3 oxycodone-acetaminophen 10-325 mg tablet 1 tab PO QID PRN (Reason: Pain) Qty: 120 RF: 0 Toviaz 8 mg tablet extended release 24 hr See Rx Instructions .ROUTE .COMPLEX Qty: 30 RF: 3 polyethylene glycol 3350 [Miralax] 17 gram powder in packet 17 g PO QHS PRNRF: 0 Belsomra 15 mg tablet 15 mg PO HS Qty: 30 RF: 1 aspirin 81 MG tablet,delayed release (DR/EC) 81 mg PO DAILY@1800 RF: 0 cholecalciferol (vitamin D3) 2,000 UNIT capsule 2,000 unit PO DAILY@1800 RF: 0
--- NOTE | 2021-03-01 13:47 | XRay Report ---
CLINICAL INFORMATION: Dyspnea COMPARISON: 02/03/2018 TECHNIQUE: PA and Lateral views FINDINGS: The heart size, mediastinum and pulmonary vessels are unremarkable. Minor bibasilar atelectasis noted.. There are no effusions.. IMPRESSION: Minor bibasilar atelectasis. Interpreted and Authenticated by: Roland Brooke 03/01/21
[2021-03-01 13:53] LABS: POC Creatinine 1.9 mg/dL (0.6-1.2)
[2021-03-01 14:21] LABS: Basophils # (Auto) 0.04 K/mcL (0.00-0.20); Basophils % (Auto) 0.3 % (0.0-2.0); Eosinophils % (Auto) 0.6 % (0.0-7.0); Hematocrit 36.8 % (36.0-48.0); Hemoglobin 12.4 g/dL (12.0-15.0); Lymphocytes # (Auto) 0.27 K/mcL (1.50-4.80); Lymphocytes % (Auto) 1.7 % (15.0-49.0); Mean Cell Volume 84.6 fL (80.0-100.0); Mean Corpuscular HGB Conc 33.7 g/dL (31.0-36.0); Monocytes # (Auto) 1.03 K/mcL (0.10-0.90); Monocytes % (Auto) 6.5 % (1.0-12.0); Neutrophils % (Auto) 90.9 % (38.0-78.0); Platelet Count 166 K/mcL (140-440); RBC 4.35 M/mcL (4.00-5.20); Red Cell Distribution Width 13.1 % (11.5-14.5); WBC 15.8 K/mcL (4.5-11.0)
--- NOTE | 2021-03-01 14:41 | Cat Scan Report ---
CLINICAL INFORMATION: Upper abdominal pain COMPARISON: Noncontrast abdomen and pelvic CT 02/03/2018 TECHNIQUE: Following enteric contrast, 80 cc of Isovue-370 were injected intravenously, and 60 seconds later, 0.625 mm helical slices were obtained from the mid heart through the subtrochanteric regions. Following reconstruction, 2.5 mm sagittal, coronal and axial reformatted images were processed and reviewed at bone, lung and soft tissue windows. Five minutes later, 0.625 mm helical slices were obtained from the mid heart through the kidneys and viewed at soft tissue windows.The exam was performed using radiation dose optimization techniques including, but not limited to, automated exposure control, adjustment of the mA and/or kV according to patient size and use of iterative reconstruction technique. FINDINGS: The lung bases show chronic bronchitis with minimal scarring and/or atelectasis. 10 mm fat-containing nodule in the medial basilar segment left lower lobe is unchanged from the 2018 study should be considered benign hamartoma No effusions. The visualized heart is mildly enlarged scattered calcific plaque in the coronary arteries. Lipomatous infiltration of the interatrial septum is unchanged Abdominal images show mild fatty change within the liver, but no focal hepatic lesion. The gallbladder is surgically absent. Common bile duct is mildly dilated-12 mm compatible post cholecystectomy state. The pancreas, spleen and aorta are normal in size configuration and attenuation without focal lesion. There is no free air, free fluid or adenopathy. Right kidney is surgically absent and there is compensatory hypertrophy of the left kidney which spans 13 cm. A new 3 cm well-circumscribed inhomogeneous mass has developed in the superior pole of the left kidney. This could represent a renal cell carcinoma. Just inferior to this region, there is a 4.5 cm low-attenuation region in the medial cortex mid left kidney. 2.2 cm low-attenuation region seen in the lateral parenchyma inferior pole and there is vague region centimeter inhomogeneous wedge-shaped low-attenuation lesion in the superior pole the left kidney also noted. Right adrenal gland has undergone mild hypertrophy. Left adrenal gland is been surgically resected. Pelvic images show mild wall thickening of the urinary bladder. The stomach, small bowel appendix region and large bowel are normal. There is a large, 10 cm, left inguinal hernia consisting of mesenteric fat and a small portion of the left urinary bladder dome. Marked atrophy of the bilateral gluteus medius muscles seen as before. Bone windows show posterior L4-5 fusion change. No focal osseous lesion IMPRESSION: 1. 3.2 cm inhomogeneously enhancing well-circumscribed mass in the superior pole of the left kidney-new from prior exam. It is suspicious for recurrent renal cell carcinoma. Pattern may wedge-shaped low-attenuation lesions throughout the remaining renal parenchyma could represent infection lower nephronia or, less likely, renal infarcts (the left renal artery and the segmental arteries appear to be opacified-no evidence of from its. Mild thickening of the transitional epithelium of the left renal pelvis and ureter supportive of pyelonephritis. Please correlate with UA. 2. Right nephrectomy and left adrenalectomy changes. Mild hypertrophy of the right adrenal gland. 3. Large (10 cm) left inguinal hernia which contains mesenteric fat and the left urinary bladder dome. 4. Marked atrophy bilateral gluteus medius muscles-stable Interpreted and Authenticated by: Roland Brooke 03/01/21
[2021-03-01 14:50] LABS: ALT/SGPT 17 U/L (<40); AST/SGOT 30 U/L (<32); Albumin 3.1 gm/dL (3.2-5.2); Albumin/Globulin Ratio 0.9 (1.0-2.3); Alkaline Phosphatase 110 U/L (39-117); Bilirubin,Total 0.7 mg/dL (0.1-1.0); Blood Urea Nitrogen 44 mg/dL (8-23); Calcium 8.4 mg/dL (8.6-10.4); Carbon Dioxide 21 mmol/L (22-30); Chloride 87 mmol/L (96-108); Globulin 3.4 gm/dL (2.2-3.7); Glomerular Filtration Rate 28; Glucose 355 mg/dL (70-105)
[2021-03-01 14:51] LABS: Thyroid Stimulating Hormone 1.65 uIU/mL (0.27-5.01)
[2021-03-01] MEDS ORDERED: cefTRIAXone 1 GM VIAL IV ONE (15:18)
--- NOTE | 2021-03-01 15:42 | Internal Med History&Physical ---
HPI History of Present Illness Patient information: Note initiated : 03/01/21 at 3:38 pm Service Date, if different from initiated Date: [] Patient: Ruby Colvin a 80 y/o F admitted on for LLQ pain. Chief Complaint: Abdominal pain History of present illness: Ms. Colvin is a 80 year old F known diabetic, HTN, hypothyroidism, DJD, presented with 4 days onset of left flank pain that has progressed from 2 out of 10 to 8 out of 10. Patient has associated lightheadedness dizziness chest palpitation and subjective chills. She presented to the ER with above symptoms initial work-up was consistent with severe sepsis with endorgan failure including acute renal failure/elevated white count 15.8, A. fib with RVR, elevated lactic acid, CT scan suggestive of superior renal pole mass versus infarct versus infectious process. Urology was consulted. Heart rate improved with adenosine followed by diltiazem. Patient was started antibiotics after cultures were drawn. Hospitalist service was consulted for admission. At the time of my evaluation patient is very anxious and distressed. She complains of pain 7 out of 10 in flank with intermittent relief on opioids. She is status post liters crystalloids. Systolics around 130. Remains around 140 variable rate. Endorses to history as above. Denies sick contacts/dysuria endorses to multiple bowel movements today. She further denies drenching sweats/thunderclap headache/cough/shortness of breath review of systems 10 point review system was performed and is negative except for ones discussed above PFSH PFSH All Active Problems (Updated 03/01/21 @ 17:53 by Sam Reyes MD) Pyuria (Acute) Renal mass, left (Acute) Paroxysmal supraventricular tachycardia by electrocardiogram (ECG) (Acute) Abdominal pain (Acute) Renal cell carcinoma (Acute) Acute hyponatremia (Acute) Acute on chronic renal insufficiency (Acute) GERD (gastroesophageal reflux disease) (Acute) Tongue abnormality (Acute) Medication monitoring encounter (Acute) Type 2 diabetes mellitus without complications (Chronic) Degenerative disc disease (Chronic) Obesity (Chronic) History of pheochromocytoma (Chronic) Osteoporosis (Chronic) Paresthesia (Chronic) Back pain with radiculopathy (Chronic) Stress (Chronic) Hypertriglyceridemia (Chronic) Hyperlipidemia (Chronic) Sleep apnea (Chronic) Shoulder pain (Chronic) Insomnia (Chronic) Headache (Chronic) Well adult exam (Chronic) Depression (Chronic) Anxiety (Chronic) Synovial cyst of popliteal space [Pack], right knee (Chronic) Bilateral leg edema (Chronic) Fatigue (Chronic) Hypercalcemia (Chronic) Pulmonary nodule (Chronic) Hypothyroidism (Chronic) COPD (chronic obstructive pulmonary disease) (Chronic) Unspecified disorder of parathyroid gland (Chronic) Memory impairment (Chronic) Onychomycosis of toenail (Chronic) 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) Urinary incontinence (Chronic) Anemia (Chronic) Weakness (Chronic) Constipation (Chronic) Contusion (Chronic) Fall against sharp object (Chronic) Dehydration (Chronic) Sinus tachycardia (Chronic) Narrow complex tachycardia (Chronic) Atrial tachycardia (Chronic) Knee osteoarthritis (Chronic) Knee pain, right (Chronic) Medical History (Updated 03/01/21 @ 17:53 by Sam Reyes MD) Anemia Anxiety Atrial tachycardia Back pain with radiculopathy Bilateral leg edema CKD stage 3 secondary to diabetes Constipation Contusion COPD (chronic obstructive pulmonary disease) Degenerative disc disease Dehydration Depression Fall against sharp object Fatigue Headache History of pheochromocytoma Hypercalcemia Hyperlipidemia Hypertriglyceridemia Hypothyroidism Insomnia Knee osteoarthritis Knee pain, right Memory impairment Narrow complex tachycardia Obesity Onychomycosis of toenail Osteoporosis Paresthesia Pulmonary nodule Shoulder pain Sinus tachycardia Sleep apnea Stress Synovial cyst of popliteal space [Pack], right knee Unspecified disorder of parathyroid gland Urinary incontinence Weakness Well adult exam Surgical History Amputated toe of right foot (~12/16/17) amputation of right fifth toe-12/16/17 Dr. Gustavo Garcia History of abdominal hysterectomy (~2008) History of knee surgery (~11/2018) knee surgery-12/16 Dr. Recinos History of lumbar fusion (~02/2010) Dr Romo History of nephrectomy, right History of parathyroidectomy (~05/2015) May 2015 removal of parathyroid adenoma by Dr. Napoles in [place] History of partial adrenalectomy Removed left adrenal gland Pheochromocytoma Family History Grandmother Diabetes Hypertension Son Diabetes Hypertension Daughter Hypertension Mother Osteoporosis Cancer Father Cancer Brother Cancer Social History marital status: occupational status: disabled additional history: 2 children-1 daughter, 1 son (difficult, stressful relationship especially with son) MEDS/ALLERGIES Home Medications and Allergies Home Medications Medication Instructions Recorded Confirmed Type aspirin 81 mg PO DAILY@1800 05/25/15 03/01/21 History cholecalciferol (vitamin D3) 2,000 unit PO DAILY@1800 10/31/17 03/01/21 History lisinopril 10 mg tablet 10 mg PO DAILY #90 tab 09/11/19 03/01/21 Rx polyethylene glycol 3350 17 gram 17 g PO QHS PRN each 10/01/19 03/01/21 History oral powder packet Attends discreet bladder control #1 ea 02/29/20 03/01/21 Rx pads ultimate #8 metaxalone 800 mg tablet 800 mg PO TID PRN #90 tab 07/13/20 03/01/21 Rx furosemide 20 mg tablet 20 mg PO QAM #90 tab 09/20/20 03/01/21 Rx lamotrigine 150 mg tablet See Rx Instructions .ROUTE 09/20/20 03/01/21 Rx .COMPLEX #90 tablet levothyroxine 112 mcg tablet 112 mcg PO QDAY #90 tab 09/20/20 03/01/21 Rx ferrous sulfate 325 mg (65 mg 325 mg PO QDAY #90 tab 09/26/20 03/01/21 Rx iron) tablet blood sugar diagnostic #200 each 09/27/20 03/01/21 Rx lorazepam 0.5 mg tablet 0.5 mg PO BID PRN #30 tab 09/27/20 03/01/21 Rx metoprolol tartrate 25 mg tablet 25 mg PO QDAY #30 tab 09/27/20 03/01/21 Rx duloxetine 60 mg capsule,delayed 60 mg PO BID #60 cap 11/28/20 03/01/21 Rx release glimepiride 2 mg tablet See Rx Instructions .ROUTE 12/02/20 03/01/21 Rx .COMPLEX #90 tab sitagliptin 100 mg tablet 100 mg PO QDAY #90 tab 01/05/21 03/01/21 Rx suvorexant 15 mg tablet 15 mg PO HS #30 tab 01/24/21 03/01/21 Rx nebivolol 10 mg tablet See Rx Instructions .ROUTE 01/27/21 03/01/21 Rx .COMPLEX #90 tablet atorvastatin 40 mg tablet 40 mg PO DAILY@1800 #90 tab 02/08/21 03/01/21 Rx fenofibrate nanocrystallized 48 mg See Rx Instructions .ROUTE 02/20/21 03/01/21 Rx tablet .COMPLEX #30 tab oxycodone-acetaminophen 10 mg-325 1 tab PO QID PRN #120 tab 02/24/21 03/01/21 Rx mg tablet fesoterodine 8 mg tablet,extended See Rx Instructions .ROUTE 02/28/21 03/01/21 Rx release 24 hr .COMPLEX #30 unknown measurement unit code: tablet fesoterodine [Toviaz] See Rx Instructions .ROUTE .COMPLEX 03/01/21 03/01/21 History nebivolol [Bystolic] 10 mg PO QDAY 03/01/21 03/01/21 History pantoprazole 40 mg PO DAILY 03/01/21 03/01/21 History potassium chloride 10 meq PO DAILY 03/01/21 03/01/21 History Allergies Allergy/AdvReac Type Severity Reaction Status Date / Time metformin AdvReac Mild Nausea Verified 03/01/21 12:48 morphine AdvReac Mild Agitated Verified 03/01/21 12:48 EXAM Constitutional Vitals: Temp Pulse Resp BP Pulse Ox 99.3 F H 132 H 16 118/68 94 03/01/21 13:10 03/01/21 15:15 03/01/21 15:15 03/01/21 15:15 03/01/21 15:15 Morbidly obese, Head normocephalic Oral cavity moist No ear nose discharge Eye movement symmetrical Neck supple no lymphadenopathy S1-S2 occasionally irregular Nonlabored breathing Nondistended pendulous, tender abdomen left flank deep palpation Lower extremity no cyanosis clubbing or joint swelling Skin no suspicious lesion Psych no hallucination Neuro lethargic and anxious but cooperative DATA Data Completed and Pending Labs: Labs from last 24 hours 03/01/21 03/01/21 03/01/21 13:36 13:36 13:36 WBC 15.8 H RBC 4.35 Hgb 12.4 Hct 36.8 MCV 84.6 MCH 28.5 MCHC 33.7 RDW 13.1 Plt Count 166 MPV 9.0 Neut % (Auto) 90.9 H Lymph % (Auto) 1.7 L [place] % (Auto) 6.5 Eos % (Auto) 0.6 Baso % (Auto) 0.3 Lymph # (Auto) 0.27 L [place] # (Auto) 1.03 H Eos # (Auto) 0.10 Baso # (Auto) 0.04 Absolute Neutrophils 14.35 H VBG Lactic Acid 2.7 H Sodium Potassium Chloride Carbon Dioxide Anion Gap BUN Creatinine POC Creatinine GFR Calculation Glucose Calcium Total Bilirubin AST ALT Alkaline Phosphatase Troponin T < 0.01 Total Protein Albumin Globulin Albumin/Globulin Ratio Lipase TSH 03/01/21 13:36 WBC RBC Hgb Hct MCV MCH MCHC RDW Plt Count MPV Neut % (Auto) Lymph % (Auto) [place] % (Auto) Eos % (Auto) Baso % (Auto) Lymph # (Auto) [place] # (Auto) Eos # (Auto) Baso # (Auto) Absolute Neutrophils VBG Lactic Acid Sodium 122 L Potassium 4.2 Chloride 87 L Carbon Dioxide 21 L Anion Gap 14.0 BUN 44 H Creatinine 1.7 H POC Creatinine 1.9 H GFR Calculation 28 Glucose 355 H Calcium 8.4 L Total Bilirubin 0.7 AST 30 ALT 17 Alkaline Phosphatase 110 Troponin T Total Protein 6.5 Albumin 3.1 L Globulin 3.4 Albumin/Globulin Ratio 0.9 L Lipase 18 TSH 1.65 A/P Narrative A/P Narrative: * Severe sepsis with multiple endorgan dysfunction including AMOS/SVT, elevated lactate and AMS. Source complicated UTI/pyonephritis/renal abscess. Pancultures/sepsis management guidelines/crystalloid/antibiotics/vasopressors as indicated * A. fib RVR-aggressive rate control measures on Cardizem, if systolics worsening due to sepsis start amiodarone load * Acute change in mental status-secondary severe sepsis endorgan dysfunction * Acute kidney injury secondary to sepsis endorgan dysfunction continue crystalloid/monitor renal function/avoid nephrotoxins * Suspected left renal mass with a history of right renal cell carcinoma status post right nephrectomy. Urology on board * DM type II continue sliding-scale insulin/CC diet once patient stable * History of hypertension hold antihypertensives * DJD continue home dose opioids * Hypothyroidism continue thyroxine * Anxiety disorder continue duloxetine * Prophylaxis Heparin Plan * Inpatient PCU admission * Sepsis management per guidelines/vasopressors as indicated, trend venous lactate * Rate control measures, amiodarone if indicated * Monitor renal function. * Urology consult for possible renal abscess versus mass * Pre-existing medical condition management home meds except for antihypertensives will be held until sepsis resolves * Close hemodynamic monitoring * PT OT nutrition support Time Spent With Patient Time: Critical time spent on management of severe sepsis with multiorgan failure/A. fib RVR/
[2021-03-01] MEDS ORDERED: DILTIAZEM 25 MG/5 ML VIAL IV ONE ×2 (16:45→17:29)
[2021-03-01 17:24] LABS: Appearance,Urine CLOUDY (Clear); Bacteria,Urine FEW /hpf (0); Bilirubin,Urine Negative (Negative); Color,Urine AMBER; Culture Indicated,Urine No; Glucose,Urine (UA) Negative (Negative); Ketones,Urine Negative (Negative); Leukocyte Esterase,Urine 250 /ug (Negative); Nitrate,Urine Negative (Negative); Protein,Urine 100 mg/dL (Negative); Specific Gravity,Urine 1.044 (1.000-1.035); Urine Blood 0.03 mg/dL (Negative); Urine RBC 13 /hpf (0-3); Urine Squamous Epithelial Cell 5 /hpf (0-4); Urine WBC > 182 /hpf (0-4)
[2021-03-01] MEDS ORDERED: MAGNESIUM SULFATE 2 GM/50 ML BAG IV PRN (17:27)
[2021-03-01] MEDS ORDERED: POTASSIUM CHLORIDE 40 MEQ in DEXTROSE 5% IN WATER 500 ML IV PRN (17:27)
[2021-03-01] MEDS ORDERED: DEXTROSE 31 GM ORAL.SUSP PO PRN (17:27)
[2021-03-01] MEDS ORDERED: DEXTROSE 50% 50 ML VIAL IV PRN (17:27)
[2021-03-01] MEDS ORDERED: VANCOMYCIN PER PHARMACY IV SCH (17:27)
[2021-03-01] MEDS ORDERED: ONDANSETRON 4 MG/2 ML VIAL IV PRN (17:27)
[2021-03-01] MEDS ORDERED: POTASSIUM CHLORIDE 20 MEQ PACKET PO PRN (17:27)
[2021-03-01] MEDS ORDERED: POLYETHYLENE GLYCOL 3350 17 GM PACKET PO PRN (17:27)
[2021-03-01] MEDS ORDERED: ACETAMINOPHEN 325 MG TABLET PO PRN (17:27)
[2021-03-01] MEDS ORDERED: 0.9 % SODIUM CHLORIDE 1,000 ML IV SCH ×2 (17:27)
[2021-03-01] MEDS ORDERED: ACETAMINOPHEN 650 MG/65 ML BAG IV PRN (17:27)
[2021-03-01] MEDS ORDERED: BISACODYL 10 MG SUPP.RECT PR PRN (17:27)
[2021-03-01] MEDS ORDERED: MELATONIN 3 MG TABLET PO PRN (17:27)
[2021-03-01] MEDS ORDERED: ONDANSETRON 4 MG ODT TABLET SL PRN (17:27)
[2021-03-01] MEDS ORDERED: PIPERACILLIN SODIUM/TAZOBACTAM 3.375 GM in DEXTROSE 5% IN WATER 50 ML IV SCH (17:27)
[2021-03-01] MEDS ORDERED: NOREPINEPHRINE BITARTRATE 8 MG in 0.9 % SODIUM CHLORIDE 242 ML IV PRN (17:27)
[2021-03-01] MEDS ORDERED: AMIODARONE 150 MG in DEXTROSE 5% IN WATER 50 ML IV ONE (17:30)
[2021-03-01] MEDS ORDERED: HYDROmorphone 0.5 MG/0.5 ML SYRINGE IV PRN (17:31)
--- NOTE | 2021-03-01 17:42 | General Surgery Consult Note ---
HPI Data of Consult Primary Care Provider: HALLIE Guillermo Consult Narrative cc:: CC: Alistair Moise This 80-year-old female presented to the emergency room with a 3 to 4-day history of bilateral lower quadrant abdominal pain with chills but no fever and nausea but no vomiting. She was having problems with constipation but had sev eral bowel movements prior to coming to the hospital. In the emergency room she was found to have a white count of 15,800 with an H&H of 36.8 and a hemoglobin of 12.4. Her BUN was 44, creatinine 1.7 and GFR 28. The patient has a history of a right nephrectomy because of carcinoma in 2001. She had not been having any left flank pain. She also has a urinalysis with 13 red cells, 182 white cells and was nitrite negative. The only other significant urologic history is an overactive bladder and is currently on Toviaz [address] showed a 3.2 cm renal mass in the left upper pole just above the hilum. Her urologic history is significant in that she did have a urinary tract infection a year ago and does have overactive bladder on the oral agent of Toviaz. She also states that she has problems with urge urinary incontinence which would go along with the overactive bladder. PFSH PFSH All Active Problems (Updated 03/01/21 @ 17:53 by Sam Reyes MD) Pyuria (Acute) Renal mass, left (Acute) Paroxysmal supraventricular tachycardia by electrocardiogram (ECG) (Acute) Abdominal pain (Acute) Renal cell carcinoma (Acute) Acute hyponatremia (Acute) Acute on chronic renal insufficiency (Acute) GERD (gastroesophageal reflux disease) (Acute) Tongue abnormality (Acute) Medication monitoring encounter (Acute) Type 2 diabetes mellitus without complications (Chronic) Degenerative disc disease (Chronic) Obesity (Chronic) History of pheochromocytoma (Chronic) Osteoporosis (Chronic) Paresthesia (Chronic) Back pain with radiculopathy (Chronic) Stress (Chronic) Hypertriglyceridemia (Chronic) Hyperlipidemia (Chronic) Sleep apnea (Chronic) Shoulder pain (Chronic) Insomnia (Chronic) Headache (Chronic) Well adult exam (Chronic) Depression (Chronic) Anxiety (Chronic) Synovial cyst of popliteal space [Pack], right knee (Chronic) Bilateral leg edema (Chronic) Fatigue (Chronic) Hypercalcemia (Chronic) Pulmonary nodule (Chronic) Hypothyroidism (Chronic) COPD (chronic obstructive pulmonary disease) (Chronic) Unspecified disorder of parathyroid gland (Chronic) Memory impairment (Chronic) Onychomycosis of toenail (Chronic) 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) Urinary incontinence (Chronic) Anemia (Chronic) Weakness (Chronic) Constipation (Chronic) Contusion (Chronic) Fall against sharp object (Chronic) Dehydration (Chronic) Sinus tachycardia (Chronic) Narrow complex tachycardia (Chronic) Atrial tachycardia (Chronic) Knee osteoarthritis (Chronic) Knee pain, right (Chronic) Medical History (Updated 03/01/21 @ 17:53 by Sam Reyes MD) Anemia Anxiety Atrial tachycardia Back pain with radiculopathy Bilateral leg edema CKD stage 3 secondary to diabetes Constipation Contusion COPD (chronic obstructive pulmonary disease) Degenerative disc disease Dehydration Depression Fall against sharp object Fatigue Headache History of pheochromocytoma Hypercalcemia Hyperlipidemia Hypertriglyceridemia Hypothyroidism Insomnia Knee osteoarthritis Knee pain, right Memory impairment Narrow complex tachycardia Obesity Onychomycosis of toenail Osteoporosis Paresthesia Pulmonary nodule Shoulder pain Sinus tachycardia Sleep apnea Stress Synovial cyst of popliteal space [Pack], right knee Unspecified disorder of parathyroid gland Urinary incontinence Weakness Well adult exam Surgical History Amputated toe of right foot (~12/16/17) amputation of right fifth toe-12/16/17 Dr. Gustavo Garcia History of abdominal hysterectomy (~2008) History of knee surgery (~11/2018) knee surgery-12/16 Dr. Recinos History of lumbar fusion (~02/2010) Dr Romo History of nephrectomy, right History of parathyroidectomy (~05/2015) May 2015 removal of parathyroid adenoma by Dr. Napoles in [place] History of partial adrenalectomy Removed left adrenal gland Pheochromocytoma Family History Grandmother Diabetes Hypertension Son Diabetes Hypertension Daughter Hypertension Mother Osteoporosis Cancer Father Cancer Brother Cancer Social History marital status: occupational status: disabled additional history: 2 children-1 daughter, 1 son (difficult, stressful relationship especially with son) MEDS/ALLERGIES Home Medications and Allergies Home Medications Medication Instructions Recorded Confirmed Type aspirin 81 mg PO DAILY@1800 05/25/15 03/01/21 History cholecalciferol (vitamin D3) 2,000 unit PO DAILY@1800 10/31/17 03/01/21 History lisinopril 10 mg tablet 10 mg PO DAILY #90 tab 09/11/19 03/01/21 Rx polyethylene glycol 3350 17 gram 17 g PO QHS PRN each 10/01/19 03/01/21 History oral powder packet Attends discreet bladder control #1 ea 02/29/20 03/01/21 Rx pads ultimate #8 metaxalone 800 mg tablet 800 mg PO TID PRN #90 tab 07/13/20 03/01/21 Rx furosemide 20 mg tablet 20 mg PO QAM #90 tab 09/20/20 03/01/21 Rx lamotrigine 150 mg tablet See Rx Instructions .ROUTE 09/20/20 03/01/21 Rx .COMPLEX #90 tablet levothyroxine 112 mcg tablet 112 mcg PO QDAY #90 tab 09/20/20 03/01/21 Rx ferrous sulfate 325 mg (65 mg 325 mg PO QDAY #90 tab 09/26/20 03/01/21 Rx iron) tablet blood sugar diagnostic #200 each 09/27/20 03/01/21 Rx lorazepam 0.5 mg tablet 0.5 mg PO BID PRN #30 tab 09/27/20 03/01/21 Rx metoprolol tartrate 25 mg tablet 25 mg PO QDAY #30 tab 09/27/20 03/01/21 Rx duloxetine 60 mg capsule,delayed 60 mg PO BID #60 cap 11/28/20 03/01/21 Rx release glimepiride 2 mg tablet See Rx Instructions .ROUTE 12/02/20 03/01/21 Rx .COMPLEX #90 tab sitagliptin 100 mg tablet 100 mg PO QDAY #90 tab 01/05/21 03/01/21 Rx suvorexant 15 mg tablet 15 mg PO HS #30 tab 01/24/21 03/01/21 Rx nebivolol 10 mg tablet See Rx Instructions .ROUTE 01/27/21 03/01/21 Rx .COMPLEX #90 tablet atorvastatin 40 mg tablet 40 mg PO DAILY@1800 #90 tab 02/08/21 03/01/21 Rx fenofibrate nanocrystallized 48 mg See Rx Instructions .ROUTE 02/20/21 03/01/21 Rx tablet .COMPLEX #30 tab oxycodone-acetaminophen 10 mg-325 1 tab PO QID PRN #120 tab 02/24/21 03/01/21 Rx mg tablet fesoterodine 8 mg tablet,extended See Rx Instructions .ROUTE 02/28/21 03/01/21 Rx release 24 hr .COMPLEX #30 unknown measurement unit code: tablet fesoterodine [Toviaz] See Rx Instructions .ROUTE .COMPLEX 03/01/21 03/01/21 History nebivolol [Bystolic] 10 mg PO QDAY 03/01/21 03/01/21 History pantoprazole 40 mg PO DAILY 03/01/21 03/01/21 History potassium chloride 10 meq PO DAILY 03/01/21 03/01/21 History Allergies Allergy/AdvReac Type Severity Reaction Status Date / Time metformin AdvReac Mild Nausea Verified 03/01/21 12:48 morphine AdvReac Mild Agitated Verified 03/01/21 12:48 Physical Examination Vital Signs Vital signs: Temp Pulse Resp BP Pulse Ox 99.3 F H 132 H 23 H 151/85 94 03/01/21 17:20 03/01/21 17:20 03/01/21 17:20 03/01/21 17:20 03/01/21 17:20 General physical appearance General physical exam: well developed and well nourished Eyes Eye exam: normal ocular movement ENT ENT exam: normal pinna and normal nares Cardiovascular Cardiovascular exam IM: Present normal rate and rhythm Respiratory Respiratory exam: normal respiratory effort Abdomen Abdomen: Present soft and non tender Results Labs Result diagrams: 03/01/21 13:36 03/01/21 13:36 Labs: Abnormal lab results 03/01/21 03/01/21 03/01/21 Range/Units 13:36 13:36 13:36 WBC 15.8 H (4.5-11.0) K/mcL Neut % (Auto) 90.9 H (38.0-78.0) % Lymph % (Auto) 1.7 L (15.0-49.0) % Lymph # (Auto) 0.27 L (1.50-4.80) K/mcL [place] # (Auto) 1.03 H (0.10-0.90) K/mcL Absolute Neutrophils 14.35 H (1.80-8.00) K/mcL VBG Lactic Acid 2.7 H (0.5-2.0) mmol/L Sodium 122 L (133-145) mmol/L Chloride 87 L (96-108) mmol/L Carbon Dioxide 21 L (22-30) mmol/L BUN 44 H (8-23) mg/dL Creatinine 1.7 H (0.6-1.1) mg/dL POC Creatinine 1.9 H (0.6-1.2) mg/dL Glucose 355 H (70-105) mg/dL Calcium 8.4 L (8.6-10.4) mg/dL Albumin 3.1 L (3.2-5.2) gm/dL Albumin/Globulin Ratio 0.9 L (1.0-2.3) Urine Appearance (Clear) Urine Protein (Negative) mg/dL Urine Urobilinogen mg/dL Ur Leukocyte Esterase (Negative) /ug Urine RBC (0-3) /hpf Urine WBC (0-4) /hpf Ur Squamous Epith Cells (0-4) /hpf Urine Bacteria (0) /hpf 03/01/21 Range/Units 16:00 WBC (4.5-11.0) K/mcL Neut % (Auto) (38.0-78.0) % Lymph % (Auto) (15.0-49.0) % Lymph # (Auto) (1.50-4.80) K/mcL [place] # (Auto) (0.10-0.90) K/mcL Absolute Neutrophils (1.80-8.00) K/mcL VBG Lactic Acid (0.5-2.0) mmol/L Sodium (133-145) mmol/L Chloride (96-108) mmol/L Carbon Dioxide (22-30) mmol/L BUN (8-23) mg/dL Creatinine (0.6-1.1) mg/dL POC Creatinine (0.6-1.2) mg/dL Glucose (70-105) mg/dL Calcium (8.6-10.4) mg/dL Albumin (3.2-5.2) gm/dL Albumin/Globulin Ratio (1.0-2.3) Urine Appearance Cloudy A (Clear) Urine Protein 100 A (Negative) mg/dL Urine Urobilinogen 4.0 A mg/dL Ur Leukocyte Esterase 250 A (Negative) /ug Urine RBC 13 H (0-3) /hpf Urine WBC > 182 H (0-4) /hpf Ur Squamous Epith Cells 5 H (0-4) /hpf Urine Bacteria Few A (0) /hpf Diabetes panel 03/01/21 Range/Units 13:36 Sodium 122 L (133-145) mmol/L Potassium 4.2 (3.3-5.1) mmol/L Chloride 87 L (96-108) mmol/L Carbon Dioxide 21 L (22-30) mmol/L BUN 44 H (8-23) mg/dL Creatinine 1.7 H (0.6-1.1) mg/dL Glucose 355 H (70-105) mg/dL Calcium 8.4 L (8.6-10.4) mg/dL AST 30 (<32) U/L ALT 17 (<40) U/L Alkaline Phosphatase 110 (39-117) U/L Total Protein 6.5 (5.9-8.4) gm/dL Albumin 3.1 L (3.2-5.2) gm/dL Thyroid panel 03/01/21 Range/Units 13:36 TSH 1.65 (0.27-5.01) uIU/mL Calcium panel 03/01/21 Range/Units 13:36 Calcium 8.4 L (8.6-10.4) mg/dL Albumin 3.1 L (3.2-5.2) gm/dL Pituitary panel 03/01/21 Range/Units 13:36 Sodium 122 L (133-145) mmol/L Potassium 4.2 (3.3-5.1) mmol/L Chloride 87 L (96-108) mmol/L Carbon Dioxide 21 L (22-30) mmol/L BUN 44 H (8-23) mg/dL Creatinine 1.7 H (0.6-1.1) mg/dL Glucose 355 H (70-105) mg/dL Calcium 8.4 L (8.6-10.4) mg/dL TSH 1.65 (0.27-5.01) uIU/mL Adrenal panel 03/01/21 Range/Units 13:36 Sodium 122 L (133-145) mmol/L Potassium 4.2 (3.3-5.1) mmol/L Chloride 87 L (96-108) mmol/L Carbon Dioxide 21 L (22-30) mmol/L BUN 44 H (8-23) mg/dL Creatinine 1.7 H (0.6-1.1) mg/dL Glucose 355 H (70-105) mg/dL Calcium 8.4 L (8.6-10.4) mg/dL Total Bilirubin 0.7 (0.1-1.0) mg/dL AST 30 (<32) U/L ALT 17 (<40) U/L Alkaline Phosphatase 110 (39-117) U/L Total Protein 6.5 (5.9-8.4) gm/dL Albumin 3.1 L (3.2-5.2) gm/dL All other labs normal. A/P Assessment and plan (1) Renal mass, left: Status: Acute (2) Pyuria: Status: Acute Narrative A/P Narrative: The mass appears to be more inflammatory and consistent with demetris or area and suspected infection. Agree with urine culture, antibiotics and consider a percutaneous approach for culture material and possibly at some point she may need a percutaneous drainage if this does indeed last turner to be an abscess. Will follow and adjust therapy as indicated Time Spent With Patient Time: Total time spent is greater than 50% in coordination of care (as documented) at patient's floor/unit and/or counseling patient: Total time spent with greater than 50% in coordination of care (as documented) at patient's floor/unit and/or counseling patient:: 25 - 35 minutes
[2021-03-01] MEDS: 0.9 % SODIUM CHLORIDE 250 ML IV SCH (18:04)
[2021-03-01] MEDS ORDERED: DILTIAZEM 25 MG/5 ML VIAL IV PRN (18:54)
[2021-03-01] MEDS ORDERED: METOPROLOL TARTRATE 5 MG/5 ML VIAL IV PRN (18:54)
[2021-03-01] MEDS: PIPERACILLIN SODIUM/TAZOBACTAM 3.375 GM in DEXTROSE 5% IN WATER 50 ML IV SCH (18:56)
[2021-03-01] MEDS ORDERED: LORazepam 0.5 MG TABLET PO PRN (18:57)
[2021-03-01] MEDS ORDERED: METAXALONE 800 MG TABLET PO PRN (18:57)
[2021-03-01] MEDS ORDERED: VANCOMYCIN 1,500 MG in 0.9 % SODIUM CHLORIDE 500 ML IV SCH (19:00)
[2021-03-01] MEDS: INSULIN LISPRO 1 UNIT/0.01 ML UNIT SQ SCH ×2 (19:30→22:22)
[2021-03-01] MEDS ORDERED: METOPROLOL TARTRATE 5 MG/5 ML VIAL IV ONE (20:28)
[2021-03-01] MEDS: DOCUSATE SODIUM 100 MG CAPSULE PO SCH (21:00)
[2021-03-01] MEDS ORDERED: SUVOREXANT 15 MG PO SCH (21:00)
[2021-03-01] MEDS ORDERED: SENNOSIDES/DOCUSATE SODIUM 1 TAB TABLET PO SCH (21:00)
[2021-03-01] MEDS: oxyCODONE/APAP 10/325MG TABLET PO PRN (21:01)
[2021-03-01] MEDS: HEPARIN 5,000 UNIT/ML VIAL SQ SCH (21:01)
[2021-03-01] MEDS: 0.9 % SODIUM CHLORIDE 10 ML SYRINGE IV SCH (21:02)
[2021-03-01] MEDS: DULoxetine 30 MG CAPSULE PO SCH (21:05)
[2021-03-02] MEDS: PIPERACILLIN SODIUM/TAZOBACTAM 3.375 GM in DEXTROSE 5% IN WATER 50 ML IV SCH ×4 (00:15→18:10)
[2021-03-02] MEDS ORDERED: NOREPINEPHRINE BITARTRATE 4 MG/4 ML VIAL IV ONE (00:57)
[2021-03-02] MEDS: 0.9 % SODIUM CHLORIDE 250 ML IV SCH ×3 (04:44→22:23)
[2021-03-02] MEDS: oxyCODONE/APAP 10/325MG TABLET PO PRN ×2 (05:00→12:26)
[2021-03-02] MEDS: 0.9 % SODIUM CHLORIDE 10 ML SYRINGE IV SCH ×3 (05:28→22:14)
[2021-03-02] MEDS ORDERED: LEVOTHYROXINE SODIUM 112 MCG TABLET PO SCH (07:30)
[2021-03-02] MEDS ORDERED: PANTOPRAZOLE 40 MG TABLET PO SCH (07:30)
[2021-03-02] MEDS: INSULIN LISPRO 1 UNIT/0.01 ML UNIT SQ SCH ×4 (07:41→21:15)
[2021-03-02] MEDS ORDERED: oxyCODONE/APAP 10/325MG TABLET PO PRN (07:45)
[2021-03-02 07:57] LABS: Basophils # (Auto) 0.09 K/mcL (0.00-0.20); Basophils % (Auto) 0.3 % (0.0-2.0); Eosinophils # (Auto) 0.01 K/mcL (0.00-0.70); Eosinophils % (Auto) 0 % (0.0-7.0); Hemoglobin 12.6 g/dL (12.0-15.0); Lymphocytes # (Auto) 0.44 K/mcL (1.50-4.80); Lymphocytes % (Auto) 1.7 % (15.0-49.0); Mean Cell Volume 86.2 fL (80.0-100.0); Mean Corpuscular HGB Conc 33.2 g/dL (31.0-36.0); Mean Platelet Volume 9.8 fL (7.4-10.4); Monocytes # (Auto) 1.91 K/mcL (0.10-0.90); Monocytes % (Auto) 7.3 % (1.0-12.0); Neutrophils % (Auto) 90.7 % (38.0-78.0); Platelet Count 172 K/mcL (140-440); RBC 4.41 M/mcL (4.00-5.20); Red Cell Distribution Width 13.3 % (11.5-14.5)
[2021-03-02] MEDS ORDERED: sitaGLIPtin 100 MG TABLET PO SCH (09:00)
[2021-03-02] MEDS ORDERED: lamoTRIgine 100 MG TABLET PO SCH (09:00)
[2021-03-02] MEDS ORDERED: MULTIVIT,THER IRON,CA,FA & MIN 1 TABLET PO SCH (09:00)
[2021-03-02] MEDS: DULoxetine 30 MG CAPSULE PO SCH ×2 (09:02→21:13)
[2021-03-02] MEDS: DOCUSATE SODIUM 100 MG CAPSULE PO SCH ×2 (09:02→21:14)
[2021-03-02 09:07] LABS: ALT/SGPT 18 U/L (<40); AST/SGOT 35 U/L (<32); Albumin 2.7 gm/dL (3.2-5.2); Albumin/Globulin Ratio 0.7 (1.0-2.3); Alkaline Phosphatase 129 U/L (39-117); Bilirubin,Direct 0.4 mg/dL (<0.3); Bilirubin,Total 0.6 mg/dL (0.1-1.0); Blood Urea Nitrogen 41 mg/dL (8-23); Calcium 8.2 mg/dL (8.6-10.4); Carbon Dioxide 18 mmol/L (22-30); Chloride 91 mmol/L (96-108); Globulin 3.8 gm/dL (2.2-3.7); Glomerular Filtration Rate 23; Glucose 252 mg/dL (70-105); Lactate Dehydrogenase 233 U/L (135-225); Phosphorous 3.3 mg/dL (2.5-4.5); Triglycerides 243 mg/dL (<150); Uric Acid 9.4 mg/dL (2.5-8.0)
[2021-03-02] MEDS: HEPARIN 5,000 UNIT/ML VIAL SQ SCH ×2 (09:31→21:14)
[2021-03-02] MEDS ORDERED: VANCOMYCIN PER PHARMACY IV SCH (09:34)
[2021-03-02] MEDS ORDERED: MELATONIN 3 MG TABLET PO PRN (09:34)
[2021-03-02] MEDS ORDERED: ACETAMINOPHEN 325 MG TABLET PO PRN (09:34)
[2021-03-02] MEDS ORDERED: POTASSIUM CHLORIDE 40 MEQ in DEXTROSE 5% IN WATER 500 ML IV PRN (09:34)
[2021-03-02] MEDS ORDERED: ACETAMINOPHEN 650 MG/65 ML BAG IV PRN (09:34)
[2021-03-02] MEDS ORDERED: HYDROmorphone 0.5 MG/0.5 ML SYRINGE IV PRN (09:34)
[2021-03-02] MEDS ORDERED: DEXTROSE 31 GM ORAL.SUSP PO PRN (09:34)
[2021-03-02] MEDS ORDERED: 0.9 % SODIUM CHLORIDE 1,000 ML IV SCH (09:34)
[2021-03-02] MEDS ORDERED: METAXALONE 800 MG TABLET PO PRN (09:34)
[2021-03-02] MEDS ORDERED: ONDANSETRON 4 MG ODT TABLET SL PRN (09:34)
[2021-03-02] MEDS ORDERED: BISACODYL 10 MG SUPP.RECT PR PRN (09:34)
[2021-03-02] MEDS ORDERED: DEXTROSE 50% 50 ML VIAL IV PRN (09:34)
[2021-03-02] MEDS ORDERED: POTASSIUM CHLORIDE 20 MEQ PACKET PO PRN (09:34)
[2021-03-02] MEDS ORDERED: NOREPINEPHRINE BITARTRATE 8 MG in 0.9 % SODIUM CHLORIDE 242 ML IV PRN (09:34)
[2021-03-02] MEDS ORDERED: ONDANSETRON 4 MG/2 ML VIAL IV PRN (09:34)
[2021-03-02] MEDS ORDERED: LORazepam 0.5 MG TABLET PO PRN (09:34)
[2021-03-02] MEDS ORDERED: MAGNESIUM SULFATE 2 GM/50 ML BAG IV PRN (09:34)
[2021-03-02] MEDS ORDERED: POLYETHYLENE GLYCOL 3350 17 GM PACKET PO PRN (09:34)
--- NOTE | 2021-03-02 11:25 | General Surgery Progress Note ---
SUBJECTIVE Subjective Patient information: Note initiated : 03/02/21 at 11:21 am Service Date, if different from initiated Date: [] Patient: Ruby Colvin 80 y/o F admitted on 03/01/21 for LLQ Pain. Chief Complaint: []Abdominal pain Constitutional Vitals: Vital Signs Temp Pulse Resp BP Pulse Ox 97.7 F 115 H 22 133/100 97 03/02/21 08:03 03/02/21 10:46 03/02/21 10:46 03/02/21 10:46 03/02/21 10:46 Period Temp Pulse Resp BP Sys/Ware Pulse Ox Last 24 Hr 97.7 F-100.3 F 89-157 12-32 63-174/50-123 83-100 Intake and Output 03/01/21 03/02/21 03/02/21 21:59 05:59 13:59 Intake Total 4612 783 1021 Output Total 1 2 400 Balance 4611 781 621 Weight 262 lb 12.8 oz Intake & Output: Intake & Output 03/01/21 03/02/21 03/02/21 21:59 05:59 13:59 Intake Total 4612 783 1021 Output Total 1 2 400 Balance 4611 781 621 Weight 262 lb 12.8 oz Intake: IV 4612 63 121 Sodium Chloride 0.9% 1,000 ml @ 4000 Wide Open IV [facility]OL[facility] Rx#: [id number] Sodium Chloride 0.9% 250 ml @ 9 0 20 mls/hr IV .[id number] [facility] Rx#: [id number] Cordarone 150 mg In Dextrose 5% 53 in Water 50 ml @ 300 mls/hr IV ONCE ONE Rx#:[id number] Levophed 8 mg In Sodium 13 71 Chloride 0.9% 242 ml @ 10 MCG/ MIN 18.75 mls/hr IV Q14H PRN Rx #:[id number] Zosyn 3.375 gm In Dextrose 5% 50 50 50 in Water 50 ml @ 100 mls/hr IV Q6H [facility] Rx#:[id number] Vancomycin 1,500 mg In Sodium 500 Chloride 0.9% 500 ml @ 333.3 mls/hr IV Q24H [facility] Rx#: [id number] Oral 720 900 Output: Urine Catheter Amount 400 # of times incontinent of urine 1 2 Other: Meal Breakfast Percent of Meal Consumed 25% Feeding Ability Assist with Tray Set Up Urine Appearance Cloudy Uretheral (Marin) Clear Urine Color Light Miriam Uretheral (Marin) Dark Yellow Urine Odor Strong Uretheral (Marin) Normal A/P Narrative A/P Narrative: Patient is afebrile with her white count elevated to 26,000. Urine and blood cultures are pending and she is currently on vancomycin and Zosyn. She is awake and alert with no appetite and fatigue. A Marin catheter has been inserted for purposes of monitoring urine output. The urine itself is clear. She thinks that the abdominal pain is somewhat better. Her renal function is decreased mildly from yesterday with a BUN of 41, creatinine of 2.0 and a GFR of 23. The plan is to continue on current antibiotics until culture information is available and adjust from there. Considering repeat CT within the next few days based upon how she is feeling and doing. Time Spent With Patient Time: Total time spent is greater than 50% in coordination of care (as documented) at patient's floor/unit and/or counseling patient: Total time spent with greater than 50% in coordination of care (as documented) at patient's floor/unit and/or counseling patient:: less than 15 minutes
--- NOTE | 2021-03-02 11:28 | Internal Med Progress Note ---
SUBJECTIVE Subjective Patient information: Note initiated : 03/02/21 at 11:22 am Service Date, if different from initiated Date: [] Patient: Ruby Colvin 80 y/o F admitted on 03/01/21 for LLQ Pain. Chief Complaint: [] Interval history: Ms. Colvin is a 80 year old F known diabetic, HTN, hypothyroidism, DJD, presented with 4 days onset of left flank pain that has progressed from 2 out of 10 to 8 out of 10. Patient has associated lightheadedn ess dizziness chest palpitation and subjective chills. She presented to the ER with above symptoms initial work-up was consistent with severe sepsis with endorgan failure including acute renal failure/elevated white count 15.8, A. fib with RVR, elevated lactic acid, CT scan suggestive of superior renal pole mass versus infarct versus infectious process. Urology was consulted. Heart rate improved with adenosine followed by diltiazem. Patient was started antibiotics after cultures were drawn. Hospitalist service was consulted for admission. At the time of my evaluation patient is very anxious and distressed. She complains of pain 7 out of 10 in flank with intermittent relief on opioids. She is status post liters crystalloids. Systolics around 130. Remains around 140 variable rate. Endorses to history as above. Denies sick contacts/dysuria endorses to multiple bowel movements today. She further denies drenching sweats/thunderclap headache/cough/shortness of breath 5/6-patient in septic shock. Leukemoid reaction secondary to renal abscess. Urology on board. On broad-spectrum antibiotic coverage. Continue Levophed to maintain MAP at goal. Lactic acid downtrending. However continues to show evidence of multiple organ failure. [place] 2 score 18. Sodium 127, metabolic acidosis with creatinine worsening at 2. Narrow complex tachycardia improved on amiodarone loads followed by infusion. Intermittently confused but endorses that abdominal pain is much better. Continue close hemodynamic monitoring in ICU. Secure central line access Constitutional Vitals: Vital Signs Temp Pulse Resp BP Pulse Ox 97.7 F 115 H 22 133/100 97 03/02/21 08:03 03/02/21 10:46 03/02/21 10:46 03/02/21 10:46 03/02/21 10:46 Period Temp Pulse Resp BP Sys/Ware Pulse Ox Last 24 Hr 97.7 F-100.3 F 89-157 12-32 63-174/50-123 83-100 Intake and Output 03/01/21 03/02/21 03/02/21 21:59 05:59 13:59 Intake Total 4612 783 1021 Output Total 1 2 400 Balance 4611 781 621 Weight 119.204 kg Anxious and confused but responds to commands Tachycardia telemetry Marin's catheter placed On vasopressors Minimal lymphedema Intake & Output: Intake & Output 03/01/21 03/02/21 03/02/21 21:59 05:59 13:59 Intake Total 4612 783 1021 Output Total 1 2 400 Balance 4611 781 621 Weight 119.204 kg Intake: IV 4612 63 121 Sodium Chloride 0.9% 1,000 ml @ 4000 Wide Open IV BOLUS [facility] Rx#: [id number] Sodium Chloride 0.9% 250 ml @ 9 0 20 mls/hr IV .[id number] [facility] Rx#: [id number] Cordarone 150 mg In Dextrose 5% 53 in Water 50 ml @ 300 mls/hr IV ONCE ONE Rx#:[id number] Levophed 8 mg In Sodium 13 71 Chloride 0.9% 242 ml @ 10 MCG/ MIN 18.75 mls/hr IV Q14H [facility] Rx #:[id number] Zosyn 3.375 gm In Dextrose 5% 50 50 50 in Water 50 ml @ 100 mls/hr IV Q6H [facility] Rx#:[id number] Vancomycin 1,500 mg In Sodium 500 Chloride 0.9% 500 ml @ 333.3 mls/hr IV Q24H [facility] Rx#: [id number] Oral 720 900 Output: Urine Catheter Amount 400 # of times incontinent of urine 1 2 Other: Meal Breakfast Percent of Meal Consumed 25% Feeding Ability Assist with Tray Set Up Urine Appearance Cloudy Uretheral (Marin) Clear Urine Color Light Miriam Uretheral (Marin) Dark Yellow Urine Odor Strong Uretheral (Marin) Normal OBJ DATA Labs CBC & Chem 7: 03/02/21 05:50 03/02/21 05:50 Labs: Abnormal Lab Results 03/02/21 03/02/21 03/02/21 05:50 05:50 00:34 WBC 26.0 H Neut % (Auto) 90.7 H Lymph % (Auto) 1.7 L Lymph # (Auto) 0.44 L Jerome # (Auto) 1.91 H Absolute Neutrophils 23.57 H VBG Lactic Acid < 0.2 L Sodium 127 L Chloride 91 L Carbon Dioxide 18 L Anion Gap 18.0 H BUN 41 H Creatinine 2.0 H POC Creatinine Glucose 252 H Uric Acid 9.4 H Calcium 8.2 L Magnesium 1.5 L Direct Bilirubin 0.4 H GGT 84 H AST 35 H Alkaline Phosphatase 129 H Lactate Dehydrogenase 233 H Albumin 2.7 L Globulin 3.8 H Albumin/Globulin Ratio 0.7 L Triglycerides 243 H Urine Appearance Urine Protein Urine Urobilinogen Ur Leukocyte Esterase Urine RBC Urine WBC Ur Squamous Epith Cells Urine Bacteria 03/01/21 03/01/21 03/01/21 17:58 16:00 13:36 WBC Neut % (Auto) Lymph % (Auto) Lymph # (Auto) Jerome # (Auto) Absolute Neutrophils VBG Lactic Acid 2.8 H 2.7 H Sodium Chloride Carbon Dioxide Anion Gap BUN Creatinine POC Creatinine Glucose Uric Acid Calcium Magnesium Direct Bilirubin GGT AST Alkaline Phosphatase Lactate Dehydrogenase Albumin Globulin Albumin/Globulin Ratio Triglycerides Urine Appearance Cloudy A Urine Protein 100 A Urine Urobilinogen 4.0 A Ur Leukocyte Esterase 250 A Urine RBC 13 H Urine WBC > 182 H Ur Squamous Epith Cells 5 H Urine Bacteria Few A 03/01/21 03/01/21 13:36 13:36 WBC 15.8 H Neut % (Auto) 90.9 H Lymph % (Auto) 1.7 L Lymph # (Auto) 0.27 L Jerome # (Auto) 1.03 H Absolute Neutrophils 14.35 H VBG Lactic Acid Sodium 122 L Chloride 87 L Carbon Dioxide 21 L Anion Gap BUN 44 H Creatinine 1.7 H POC Creatinine 1.9 H Glucose 355 H Uric Acid Calcium 8.4 L Magnesium Direct Bilirubin GGT AST Alkaline Phosphatase Lactate Dehydrogenase Albumin 3.1 L Globulin Albumin/Globulin Ratio 0.9 L Triglycerides Urine Appearance Urine Protein Urine Urobilinogen Ur Leukocyte Esterase Urine RBC Urine WBC Ur Squamous Epith Cells Urine Bacteria Meds: Medications Acetaminophen (Acetaminophen 325 Mg Tablet) 650 mg PO Q4-6HP PRN; Protocol PRN Reason: Per Pain Protocol/Fever > 101 Aspirin (Aspirin 81 Mg Tab.Chew) 81 mg PO DAILY@1800 [facility] Atorvastatin Calcium (Atorvastatin 40 Mg Tablet) 40 mg PO DAILY@1800 [facility] Bisacodyl (Bisacodyl 10 Mg Supp.Rect) 10 mg CO Q2-3DAYS PRN PRN Reason: Constipation Dextrose (Dextrose 50% 50 Ml Vial) 0 ml IV UD PRN PRN Reason: Hypoglycemia Diagnostic Test (Pha) (Accu-Chek 1 Each Strip) 1 each FS ACHS [facility] Docusate Sodium (Docusate Sodium 100 Mg Capsule) 100 mg PO BID [facility] Duloxetine HCl (Duloxetine 30 Mg Capsule) 60 mg PO BID [facility] Glucose (Dextrose 31 Gm Oral.Susp) 15 gm PO PRN PRN PRN Reason: Hypoglycemia Heparin Sodium (Porcine) (Heparin 5,000 Unit/Ml Vial) 5,000 unit SQ Q12 [facility] Hydromorphone HCl (Hydromorphone 0.5 Mg/0.5 Ml Syringe) 0.5 mg IV Q4HP PRN; Protocol PRN Reason: Per Pain Protocol Potassium Chloride 40 meq/ (Dextrose) 520 mls @ 130 mls/hr IV UD PRN PRN Reason: K+ = or < 3.5 Sodium Chloride (Sodium Chloride 0.9%) 250 mls @ 20 mls/hr IV .[id number] [facility] Sodium Chloride (Sodium Chloride 0.9%) 1,000 mls @ 50 mls/hr IV .Q20H [facility] Stop: 03/04/21 05:26 Sodium Chloride (Sodium Chloride 0.9%) 1,000 mls @ 0 mls/hr IV [facility] Acetaminophen (Ofirmev) 650 mg in 65 mls @ 130 mls/hr IV Q6HP PRN; Protocol PRN Reason: Per Pain Protocol/Fever > 101 Magnesium Sulfate (Magnesium Sulfate) 2 gm in 50 mls @ 50 mls/hr IV UD PRN PRN Reason: MG = or < 1.7 Piperacillin Sod/Tazobactam (Sod 3.375 gm/ Dextrose) 50 mls @ 100 mls/hr IV Q6H [facility]; Protocol Vancomycin HCl 1,500 mg/ (Sodium Chloride) 500 mls @ 333.3 mls/hr IV Q24H [facility] Norepinephrine Bitartrate 8 mg (/ Sodium Chloride) 250 mls @ 18.75 mls/hr IV Q14H PRN; Protocol PRN Reason: Keep MAP >65 Insulin Human Lispro (Insulin Lispro 1 Unit/0.01 Ml Unit) 0 unit SQ ACHS [facility]; Protocol Iron Carb/Multivit/Fitter/Welder/Folic Acid (Multivit,Ther Iron,Ca,Fa & Min 1 Tablet) 1 tab PO DAILY [facility] Lamotrigine (Lamotrigine 100 Mg Tablet) 150 mg PO DAILY [facility] Levothyroxine Sodium (Levothyroxine Sodium 112 Mcg Tablet) 112 mcg PO QAMAC [facility] Lorazepam (Lorazepam 0.5 Mg Tablet) 0.5 mg PO BIDP PRN PRN Reason: anxiety Melatonin (Melatonin 3 Mg Tablet) 3 mg PO HSP PRN PRN Reason: Insomnia Metaxalone (Metaxalone 800 Mg Tablet) 800 mg PO TIDP PRN PRN Reason: muscle pain Ondansetron HCl (Ondansetron 4 Mg Odt Tablet) 4 mg SL Q4-6HP PRN; Protocol PRN Reason: Nausea And Vomiting Ondansetron HCl (Ondansetron 4 Mg/2 Ml Vial) 4 mg IV Q4-6HP PRN; Protocol PRN Reason: Nausea And Vomiting Oxycodone/Acetaminophen (Oxycodone/Apap 10/325mg Tablet) 1 tab PO QIDP PRN; Protocol PRN Reason: Pain Pantoprazole Sodium (Pantoprazole 40 Mg Tablet) 40 mg PO QAMAC [facility] Suvorexant [Belsomra (] 15 Mg Tablet) 1 dose PO HS [facility] Polyethylene Glycol (Polyethylene Glycol 3350 17 Gm Packet) 17 gm PO DAILYP PRN PRN Reason: Constipation Potassium Chloride (Potassium Chloride 20 Meq Packet) 40 meq PO DAILYP PRN PRN Reason: K+ < 3.5 Senna/Docusate Sodium (Sennosides/Docusate Sodium 1 Tab Tablet) 1 tab PO HS [facility] Sitagliptin Phosphate (Sitagliptin 100 Mg Tablet) 100 mg PO QDAY [facility] Sodium Chloride (0.9 % Sodium Chloride 10 Ml Syringe) 10 ml IV Q8 [facility] Vancomycin HCl (Vancomycin Per Pharmacy) 1 order IV UD [facility]; Protocol A/P Narrative A/P Narrative: * Septic shock with multiple endorgan dysfunction including AMOS/SVT, elevated lactate and AMS. Secondary to renal abscess. On crystalloid/vasopressors * Narrow complex tachycardia- status post amiodarone loading followed by amiodarone drip. Rate around 120s * Acute change in mental status-secondary severe sepsis endorgan dysfunction * Acute kidney injury secondary to sepsis endorgan dysfunction . Creatinine uptrending now at 2 * Suspected left renal mass with a history of right renal cell carcinoma status post right nephrectomy. Urology on board * DM type II continue sliding-scale insulin. Hold diet until shock resolves * History of hypertension hold antihypertensives * DJD continue home dose opioids * Hypothyroidism continue thyroxine * Anxiety disorder continue duloxetine * Prophylaxis Heparin Plan * Continue titrating vasopressors to goal * Amiodarone drip * Monitor renal function * Broad-spectrum antibiotics * Repeat abdominal imaging and possible IR guided renal abscess drainage * Close hemodynamic monitoring * PT OT nutrition support * Critically ill with [place] 2 score 18 suggesting high risk mortality Time Spent With Patient Time: 65 minutes Critical care time spent on management of septic shock/narrow complex tachycardia
[2021-03-02] MEDS: VANCOMYCIN 1,500 MG in 0.9 % SODIUM CHLORIDE 500 ML IV SCH (13:40)
--- NOTE | 2021-03-02 14:01 | Transfer Summary ---
Discharge Provider Provider Patient information: Note initiated : 03/03/21 at 12:34 pm Service Date, if different from initiated Date: [] Patient: Ruby Colvin 80 y/o F admitted on 03/01/21 for LLQ Pain. Transfer diagnosis * Septic shock with multiple endorgan dysfunction including AMOS/SVT, elevated lactate and AMS. Secondary to renal abscess. On crystalloid, patient pressors on board since 7 AM 03/03 * Left renal abscess/nephronia on imaging-urology on board. Radiology recommends continued antibiotics as no clear area that can be drained at this time until abscess matures * Acute kidney failure secondary to ischemic ATN with solitary kidney and multiple abscesses and high probability transitioning to short-term hemodialysis. Nephrology recommends transfer to tertiary center for further management. * Narrow complex tachycardia- status post amiodarone load. Rate controlled * Acute change in mental status-secondary severe sepsis endorgan dysfunction * DM type II continue sliding-scale insulin. N.p.o. until shock resolves * History of hypertension held antihypertensives * DJD * Hypothyroidism * Anxiety disorder Brief hospital course Ms. Colvin is a 80 year old F known diabetic, HTN, hypothyroidism, DJD, presented with 4 days onset of left flank pain that has progressed from 2 out of 10 to 8 out of 10. Patient has associated lightheadedness dizziness chest palpitation and subjective chills. She presented to the ER with above symptoms initial work-up was consistent with severe sepsis with endorgan failure including acute renal failure/elevated white count 15.8, A. fib with RVR, elevated lactic acid, CT scan suggestive of superior renal pole mass versus infarct versus infectious process. Urology was consulted. Heart rate improved with adenosine followed by diltiazem. Patient was started antibiotics after cultures were drawn. Hospitalist service was consulted for admission. At the time of my evaluation patient is very anxious and distressed. She complains of pain 7 out of 10 in flank with intermittent relief on opioids. She is status post 3 liters crystalloids. Systolics around 130. Remains around 140 variable rate. Endorses to history as above. Denies sick contacts/dysuria but endorses to multiple bowel movements today. She further denies drenching sweats/thunderclap headache/cough/shortness of breath 5/6-patient in septic shock. Leukemoid reaction secondary to renal abscess 26K. Urology on board. On broad-spectrum antibiotic coverage. Continue Levophed to maintain MAP at goal. Lactic acid downtrending. However continues to show evidence of multiple organ failure. Soper 2 score 18. Sodium 127, metabolic acidosis with creatinine worsening at 2. Narrow complex tachycardia improved on amiodarone load. Intermittently confused but endorses that abdominal pain is much better. Continue close hemodynamic monitoring in ICU. Secure central line access 2 PM-patient continues to deteriorate. Currently on vasopressors/amiodarone. No central IV access. Surgery attempted subclavian and IJ line placement. Recommends transfer for radiology assisted central venous access/continue antibiotics and possible drainage of renal abscess if indicated on serial imaging. [facility] no [facility] available. Patient will be continued on aggressive IV antibiotics/pressor support in consultation with nephrology/urology. Right IJ central venous access secured under ultrasound and confirmed on imaging 03/03-patient remains oliguric with creatinine up to 3.4. However off pressors since morning. White count downtrending from 26,000->16. However in light of solitary kidney and high probability transition to temporary hemodialysis nephrology recommends transfer to tertiary center for hemodialysis catheter placement/renal abscess management. Intervention radiology recommends continued broad-spectrum antibiotic coverage as no specific area that can be percutaneously drained at this time. Patient remains extremely sick with Soper 2 score 21. Grandson in room and aware of critical nature of illness. Both patient and grandson consents to transfer to tertiary center. Patient will be transferred via air ambulance Once accepting facility available Case discussed with [facility]. Patient accepted for further management and will be transferred via air ambulance. I highly appreciate accepting physician's help in further management of this complex patient with multiorgan failure Date of admission: 03/01/21 17:28 Discharge date: 03/03/21 Primary care physician: HALLIE Guillermo Consults: 03/01/21 15:07 Consult to Physician [CONS] Stat Comment: Consulting Provider: Sam Reyes Reason For Exam: Physician to Consult 03/02/21 07:34 Consult to Physician [CONS] Routine Comment: Consulting Provider: Alistair Moise Reason For Exam: Physician to Consult Discharge Meds Discharge Medications Home Medications aspirin 81 mg PO DAILY@1800 05/25/15 [History Confirmed 03/01/21 Last Taken 12/12/18] cholecalciferol (vitamin D3) 2,000 unit PO DAILY@1800 10/31/17 [History Confirmed 03/01/21 Last Taken 12/15/18] lisinopril 10 mg tablet 10 mg PO DAILY #90 tab 09/11/19 [Rx Confirmed 03/01/21 Last Taken Unknown] polyethylene glycol 3350 17 gram oral powder packet 17 g PO QHS PRN each 10/01/19 [History Confirmed 03/01/21 Last Taken Unknown] Attends discreet bladder control pads ultimate #8 #1 ea 02/29/20 [Rx Confirmed 03/01/21 Last Taken Unknown] metaxalone 800 mg tablet 800 mg PO TID PRN #90 tab 07/13/20 [Rx Confirmed 03/01/21 Last Taken Unknown] furosemide 20 mg tablet 20 mg PO QAM #90 tab 09/20/20 [Rx Confirmed 03/01/21 Last Taken Unknown] lamotrigine 150 mg tablet See Rx Instructions .ROUTE .COMPLEX #90 tablet 09/20/20 [Rx Confirmed 03/01/21 Last Taken Unknown] levothyroxine 112 mcg tablet 112 mcg PO QDAY #90 tab 09/20/20 [Rx Confirmed 03/01/21 Last Taken Unknown] ferrous sulfate 325 mg (65 mg iron) tablet 325 mg PO QDAY #90 tab 09/26/20 [Rx Confirmed 03/01/21 Last Taken Unknown] blood sugar diagnostic #200 each 09/27/20 [Rx Confirmed 03/01/21 Last Taken Unknown] lorazepam 0.5 mg tablet 0.5 mg PO BID PRN #30 tab 09/27/20 [Rx Confirmed 03/01/21 Last Taken Unknown] metoprolol tartrate 25 mg tablet 25 mg PO QDAY #30 tab 09/27/20 [Rx Confirmed 03/01/21 Last Taken Unknown] duloxetine 60 mg capsule,delayed release 60 mg PO BID #60 cap 11/28/20 [Rx Confirmed 03/01/21 Last Taken Unknown] glimepiride 2 mg tablet See Rx Instructions .ROUTE .COMPLEX #90 tab 12/02/20 [Rx Confirmed 03/01/21 Last Taken Unknown] sitagliptin 100 mg tablet 100 mg PO QDAY #90 tab 01/05/21 [Rx Confirmed 03/01/21 Last Taken Unknown] suvorexant 15 mg tablet 15 mg PO HS #30 tab 01/24/21 [Rx Confirmed 03/01/21 Last Taken Unknown] nebivolol 10 mg tablet See Rx Instructions .ROUTE .COMPLEX #90 tablet 01/27/21 [Rx Confirmed 03/01/21 Last Taken Unknown] atorvastatin 40 mg tablet 40 mg PO DAILY@1800 #90 tab 02/08/21 [Rx Confirmed 03/01/21 Last Taken Unknown] fenofibrate nanocrystallized 48 mg tablet See Rx Instructions .ROUTE .COMPLEX #30 tab 02/20/21 [Rx Confirmed 03/01/21 Last Taken Unknown] oxycodone-acetaminophen 10 mg-325 mg tablet 1 tab PO QID PRN #120 tab 02/24/21 [Rx Confirmed 03/01/21 Last Taken Unknown] fesoterodine 8 mg tablet,extended release 24 hr See Rx Instructions .ROUTE .COMPLEX #30 unknown measurement unit code: tablet 02/28/21 [Rx Confirmed 03/01/21 Last Taken Unknown] fesoterodine [Toviaz] See Rx Instructions .ROUTE .COMPLEX 03/01/21 [History Confirmed 03/01/21 Last Taken Unknown] nebivolol [Bystolic] 10 mg PO QDAY 03/01/21 [History Confirmed 03/01/21 Last Taken Unknown] pantoprazole 40 mg PO DAILY 03/01/21 [History Confirmed 03/01/21 Last Taken Unknown] potassium chloride 10 meq PO DAILY 03/01/21 [History Confirmed 03/01/21 Last Taken Unknown] COURSE Hospital Course Hospital course: . Discharge diagnosis: Renal abscess/ARF Time Spent with Patient Time attestation: Total time spent providing and/or coordinating discharge services: EXAM Constitutional Vitals: Temp Pulse Resp BP Pulse Ox 99.6 F H 130 H 21 142/79 95 03/02/21 12:01 03/02/21 13:46 03/02/21 13:46 03/02/21 13:46 03/02/21 13:46 Discharge Data Data Completed and Pending Labs on day of discharge: Labs from last 24 hours 03/02/21 03/02/21 03/02/21 05:50 05:50 00:34 WBC 26.0 H RBC 4.41 Hgb 12.6 Hct 38.0 MCV 86.2 MCH 28.6 MCHC 33.2 RDW 13.3 Plt Count 172 MPV 9.8 Neut % (Auto) 90.7 H Lymph % (Auto) 1.7 L [place] % (Auto) 7.3 Eos % (Auto) 0 Baso % (Auto) 0.3 Lymph # (Auto) 0.44 L [place] # (Auto) 1.91 H Eos # (Auto) 0.01 Baso # (Auto) 0.09 Absolute Neutrophils 23.57 H VBG Lactic Acid < 0.2 L Sodium 127 L Potassium 4.3 Chloride 91 L Carbon Dioxide 18 L Anion Gap 18.0 H BUN 41 H Creatinine 2.0 H GFR Calculation 23 Glucose 252 H Uric Acid 9.4 H Calcium 8.2 L Phosphorus 3.3 Magnesium 1.5 L Total Bilirubin 0.6 Direct Bilirubin 0.4 H GGT 84 H AST 35 H ALT 18 Alkaline Phosphatase 129 H Lactate Dehydrogenase 233 H Troponin T Total Protein 6.5 Albumin 2.7 L Globulin 3.8 H Albumin/Globulin Ratio 0.7 L Triglycerides 243 H Lipase TSH Urine Color Urine Appearance Urine pH Ur Specific [place] Urine Protein Urine Glucose (UA) Urine Ketones Urine Occult Blood Urine Nitrate Urine Bilirubin Urine Urobilinogen Ur Leukocyte Esterase Urine RBC Urine WBC Ur Squamous Epith Cells Urine Bacteria Ur Culture Indicated? 03/01/21 03/01/21 03/01/21 17:58 16:00 13:36 WBC RBC Hgb Hct MCV MCH MCHC RDW Plt Count MPV Neut % (Auto) Lymph % (Auto) [place] % (Auto) Eos % (Auto) Baso % (Auto) Lymph # (Auto) [place] # (Auto) Eos # (Auto) Baso # (Auto) Absolute Neutrophils VBG Lactic Acid 2.8 H Sodium Potassium Chloride Carbon Dioxide Anion Gap BUN Creatinine GFR Calculation Glucose Uric Acid Calcium Phosphorus Magnesium Total Bilirubin Direct Bilirubin GGT AST ALT Alkaline Phosphatase Lactate Dehydrogenase Troponin T < 0.01 Total Protein Albumin Globulin Albumin/Globulin Ratio Triglycerides Lipase TSH Urine Color Miriam Urine Appearance Cloudy A Urine pH 5.0 Ur Specific [place] 1.044 Urine Protein 100 A Urine Glucose (UA) Negative Urine Ketones Negative Urine Occult Blood 0.03 Urine Nitrate Negative Urine Bilirubin Negative Urine Urobilinogen 4.0 A Ur Leukocyte Esterase 250 A Urine RBC 13 H Urine WBC > 182 H Ur Squamous Epith Cells 5 H Urine Bacteria Few A Ur Culture Indicated? No 05/05/21 05/05/21 05/05/21 13:36 13:36 13:36 WBC 15.8 H RBC 4.35 Hgb 12.4 Hct 36.8 MCV 84.6 MCH 28.5 MCHC 33.7 RDW 13.1 Plt Count 166 MPV 9.0 Neut % (Auto) 90.9 H Lymph % (Auto) 1.7 L [place] % (Auto) 6.5 Eos % (Auto) 0.6 Baso % (Auto) 0.3 Lymph # (Auto) 0.27 L [place] # (Auto) 1.03 H Eos # (Auto) 0.10 Baso # (Auto) 0.04 Absolute Neutrophils 14.35 H VBG Lactic Acid 2.7 H Sodium 122 L Potassium 4.2 Chloride 87 L Carbon Dioxide 21 L Anion Gap 14.0 BUN 44 H Creatinine 1.7 H GFR Calculation 28 Glucose 355 H Uric Acid Calcium 8.4 L Phosphorus Magnesium Total Bilirubin 0.7 Direct Bilirubin GGT AST 30 ALT 17 Alkaline Phosphatase 110 Lactate Dehydrogenase Troponin T Total Protein 6.5 Albumin 3.1 L Globulin 3.4 Albumin/Globulin Ratio 0.9 L Triglycerides Lipase 18 TSH 1.65 Urine Color Urine Appearance Urine pH Ur Specific [place] Urine Protein Urine Glucose (UA) Urine Ketones Urine Occult Blood Urine Nitrate Urine Bilirubin Urine Urobilinogen Ur Leukocyte Esterase Urine RBC Urine WBC Ur Squamous Epith Cells Urine Bacteria Ur Culture Indicated? Discharge Plan Patient/Caregiver Discharge Instructions Activity: other Diet: NPO Prescriptions: No Action ferrous sulfate 325 mg (65 mg iron) tablet 325 mg PO QDAY Qty: 90 RF: 2 lorazepam 0.5 mg tablet 0.5 mg PO BID PRN (Reason: anxiety) Qty: 30 RF: 1 (DME) Contour Test Strips Strip See Rx Instructions .ROUTE .MEDSUPPLY Qty: 200 RF: 11 metoprolol tartrate 25 mg tablet 25 mg PO QDAY Qty: 30 RF: 1 lisinopril 10 mg tablet 10 mg PO DAILY Qty: 90 RF: 0 (DME) Attends discreet bladder control pads ultimate #8 8 Qty: 1 RF: 0 metaxalone 800 mg tablet 800 mg PO TID PRN (Reason: muscle pain) Qty: 90 RF: 3 levothyroxine 112 mcg tablet 112 mcg PO QDAY Qty: 90 RF: 2 furosemide 20 mg tablet 20 mg PO QAM Qty: 90 RF: 2 lamotrigine 150 mg tablet See Rx Instructions .ROUTE .COMPLEX Qty: 90 RF: 2 duloxetine [Cymbalta] 60 mg capsule,delayed release(DR/EC) 60 mg PO BID Qty: 60 RF: 5 glimepiride 2 mg tablet See Rx Instructions .ROUTE .COMPLEX Qty: 90 RF: 0 Januvia 100 mg tablet 100 mg PO QDAY Qty: 90 RF: 3 Bystolic 10 mg tablet See Rx Instructions .ROUTE .COMPLEX Qty: 90 RF: 6 atorvastatin 40 mg tablet 40 mg PO DAILY@1800 Qty: 90 RF: 2 fenofibrate nanocrystallized 48 mg tablet See Rx Instructions .ROUTE .COMPLEX Qty: 30 RF: 3 oxycodone-acetaminophen 10-325 mg tablet 1 tab PO QID PRN (Reason: Pain) Qty: 120 RF: 0 Toviaz 8 mg tablet extended release 24 hr See Rx Instructions .ROUTE .COMPLEX Qty: 30 RF: 3 polyethylene glycol 3350 [Miralax] 17 gram powder in packet 17 g PO QHS PRN (Reason: Constipation) RF: 0 Belsomra 15 mg tablet 15 mg PO HS Qty: 30 RF: 1 aspirin 81 MG tablet,delayed release (DR/EC) 81 mg PO DAILY@1800 RF: 0 cholecalciferol (vitamin D3) 2,000 UNIT capsule 2,000 unit PO DAILY@1800 RF: 0 Bystolic 10 mg Tablet 10 mg PO QDAY RF: 0 potassium chloride 10 mEq tablet extended release 10 meq PO DAILY RF: 0 pantoprazole 40 mg tablet,delayed release (DR/EC) 40 mg PO DAILY RF: 0 Toviaz 8 mg tablet extended release 24 hr See Rx Instructions .ROUTE .COMPLEX RF: 0 Follow Up Plan Follow up with: Deanna Stuart ARNP [Primary Care Provider] - Patient Disposition: Xfer [facility] Potential: Serious I certify that the patient requires SNF services: No Overall status at discharge: patient is not back to baseline
--- NOTE | 2021-03-02 14:29 | Procedure Note ---
PROC Central Line Placement Left SC: Consent obtained: written consent Date of Procedure: 03/02/21 Time out performed: Yes Patient placed on monitor/pulse ox: Yes MD prep: mask, sterile gown, sterile gloves and cap Central line prep: 2% Chlorhexidine scrub, large sterile drapes applied and proper hand hygiene Local anesthesia used: lidocaine 1% Amount of anesthesia used (mls): 5 Ultrasound used for placement: Yes Central line lumen inserted: other (unable to pass wire, placement stopped after multiple attempts.) Patient tolerated procedure: well
--- NOTE | 2021-03-02 15:29 | XRay Report ---
CLINICAL INFORMATION: central line placement COMPARISON: 03/01/2021 FINDINGS: The central line tip overlies the SVC brachiocephalic junction. No pneumothorax or other complication on line placement. The heart is mildly enlarged for technique. The mediastinum is unremarkable. Pulmonary vessels are normal for technique. Moderate patchy right is smaller patchy left basilar infiltrate or atelectasis as developed IMPRESSION: Right IJ central line tip overlying the SVC brachiocephalic junction. Moderate right and small left basilar infiltrate or atelectasis Interpreted and Authenticated by: Roland Brooke 03/02/21
[2021-03-02 16:27] LABS: POC Blood Urea Nitrogen 39 mg/dL (6-20); POC CO2 18 mmol/L (22-30); POC Chloride 96 mEq/L (96-108); POC Creatinine 2.5 mg/dL (0.6-1.2); POC Glucose, Random 266 mg/dL (70-105); POC Hematocrit 33 % (36-48); POC Potassium 4.1 mEql/L (3.3-5.1); POC Sodium 125 mEq/L (133-145)
[2021-03-02] MEDS: ASPIRIN 81 MG TAB.CHEW PO SCH (18:00)
[2021-03-02] MEDS ORDERED: ATORVASTATIN 40 MG TABLET PO SCH (18:00)
[2021-03-02] MEDS ORDERED: ASPIRIN 81 MG TAB.CHEW PO SCH (18:00)
[2021-03-02] MEDS: ATORVASTATIN 40 MG TABLET PO SCH (18:00)
[2021-03-02] MEDS: 0.9 % SODIUM CHLORIDE 1,000 ML IV SCH (18:16)
[2021-03-02] MEDS ORDERED: SUVOREXANT 15 MG PO SCH (21:00)
[2021-03-02] MEDS ORDERED: SENNOSIDES/DOCUSATE SODIUM 1 TAB TABLET PO SCH (21:00)
[2021-03-03] MEDS: PIPERACILLIN SODIUM/TAZOBACTAM 3.375 GM in DEXTROSE 5% IN WATER 50 ML IV SCH ×4 (00:10→17:48)
[2021-03-03] MEDS: 0.9 % SODIUM CHLORIDE 1,000 ML IV SCH (03:56)
[2021-03-03] MEDS ORDERED: NOREPINEPHRINE BITARTRATE 4 MG/4 ML VIAL IV ONE (04:51)
[2021-03-03] MEDS: 0.9 % SODIUM CHLORIDE 10 ML SYRINGE IV SCH ×2 (05:24→14:39)
[2021-03-03] MEDS: oxyCODONE/APAP 10/325MG TABLET PO PRN ×2 (05:26→17:45)
[2021-03-03] MEDS ORDERED: LEVOTHYROXINE SODIUM 112 MCG TABLET PO SCH (07:30)
[2021-03-03] MEDS ORDERED: PANTOPRAZOLE 40 MG TABLET PO SCH (07:30)
[2021-03-03] MEDS: INSULIN LISPRO 1 UNIT/0.01 ML UNIT SQ SCH ×3 (07:32→18:01)
[2021-03-03] MEDS ORDERED: ADENOSINE 3 MG/ML VIAL IV ONE (07:55)
[2021-03-03 07:57] LABS: Basophils # (Auto) 0.06 K/mcL (0.00-0.20); Basophils % (Auto) 0.4 % (0.0-2.0); Eosinophils # (Auto) 0.05 K/mcL (0.00-0.70); Eosinophils % (Auto) 0.3 % (0.0-7.0); Hematocrit 32.5 % (36.0-48.0); Hemoglobin 10.8 g/dL (12.0-15.0); Lymphocytes # (Auto) 0.35 K/mcL (1.50-4.80); Lymphocytes % (Auto) 2.1 % (15.0-49.0); Mean Cell Volume 84.9 fL (80.0-100.0); Mean Corpuscular HGB Conc 33.2 g/dL (31.0-36.0); Mean Platelet Volume 9.1 fL (7.4-10.4); Monocytes # (Auto) 1.18 K/mcL (0.10-0.90); Monocytes % (Auto) 7.2 % (1.0-12.0); Platelet Count 150 K/mcL (140-440); RBC 3.83 M/mcL (4.00-5.20); Red Cell Distribution Width 13.6 % (11.5-14.5); WBC 16.4 K/mcL (4.5-11.0)
[2021-03-03] MEDS ORDERED: sitaGLIPtin 100 MG TABLET PO SCH (09:00)
[2021-03-03] MEDS ORDERED: lamoTRIgine 100 MG TABLET PO SCH (09:00)
[2021-03-03] MEDS ORDERED: MULTIVIT,THER IRON,CA,FA & MIN 1 TABLET PO SCH (09:00)
[2021-03-03 09:18] LABS: POC Creatinine 3.4 mg/dL (0.6-1.2)
[2021-03-03 09:41] LABS: ALT/SGPT 13 U/L (<40); AST/SGOT 22 U/L (<32); Albumin 2.1 gm/dL (3.2-5.2); Albumin/Globulin Ratio 0.6 (1.0-2.3); Alkaline Phosphatase 112 U/L (39-117); Bilirubin,Direct 0.4 mg/dL (<0.3); Bilirubin,Total 0.6 mg/dL (0.1-1.0); Blood Urea Nitrogen 51 mg/dL (8-23); Calcium 7.8 mg/dL (8.6-10.4); Carbon Dioxide 18 mmol/L (22-30); Chloride 88 mmol/L (96-108); Globulin 3.7 gm/dL (2.2-3.7); Glomerular Filtration Rate 17; Glucose 224 mg/dL (70-105); Lactate Dehydrogenase 214 U/L (135-225); Phosphorous 3.7 mg/dL (2.5-4.5); Triglycerides 205 mg/dL (<150)
[2021-03-03] MEDS: DOCUSATE SODIUM 100 MG CAPSULE PO SCH (10:38)
[2021-03-03] MEDS: 0.9 % SODIUM CHLORIDE 250 ML IV SCH (10:59)
[2021-03-03] MEDS: HEPARIN 5,000 UNIT/ML VIAL SQ SCH (11:03)
[2021-03-03] MEDS: DULoxetine 30 MG CAPSULE PO SCH (11:03)
--- NOTE | 2021-03-03 11:09 | Cat Scan Report ---
CLINICAL INFORMATION: Renal abscess COMPARISON: Abdomen and pelvic CT 03/01/2021. TECHNIQUE: 0.625 mm helical slices were obtained from the mid heart through the iliac crest. Following reconstructions, sagittal, coronal and axial reformations were processed. Exam was reviewed at bone, lung and soft tissue windows Eight minutes later repeat 0.625 mm helical slices were obtained through the kidneys.The exam was performed using radiation dose optimization techniques including, but not limited to, automated exposure control, adjustment of the mA and/or kV according to patient size and use of iterative reconstruction technique. FINDINGS: Since exam two days prior. Moderate patchy infiltrates or atelectasis developed in both posterior lower lobes with small effusions. Consider aspiration. The heart is moderately enlarged with heavy calcific plaque in the coronary arteries. Abdominal images show minimal fatty change within the liver but no focal hepatic lesion. The gallbladder is surgically absent. Common bile duct is normal caliber 6 mm. Right nephrectomy and left adrenal gland resection changes again noted in the right adrenal gland is normal. Multiple wedge-shaped low-attenuation regions throughout the renal parenchyma showing increase in size and number since the prior examination findings compatible with multifocal renal abscesses. Left kidney is edematous with perinephric stranding. The largest lesion in 3 cm in the superior pole does not have features of renal cell carcinoma and this exam merely another renal abscess. There is no evidence of hydronephrosis. Small amount of free fluid is seen in the perihepatic and perisplenic region. Stomach and visualized small large bowel are normal is no free air or adenopathy. IMPRESSION: Multiple small renal abscesses throughout the parenchyma of the solitary left kidney. They have increased in size and number from the CT two days ago. The largest, 3 cm lesion, in the superior pole with thought to possibly represent a recurrent cell carcinoma on prior CT. It has features of another small abscess. Moderate patchy infiltrate or, less likely, atelectasis in both posterior lower lobes and small bilateral pleural effusions have developed over the past two days. Suspect aspiration or pneumonia. Interpreted and Authenticated by: Roland Brooke 03/03/21
[2021-03-03] MEDS: VANCOMYCIN 1,500 MG in 0.9 % SODIUM CHLORIDE 500 ML IV SCH (15:18)
[2021-03-03] MEDS: ASPIRIN 81 MG TAB.CHEW PO SCH (17:45)
[2021-03-03] MEDS: ATORVASTATIN 40 MG TABLET PO SCH (17:45)
--- NOTE | 2021-03-03 23:17 | Consultation ---
DATE OF CONSULTATION: 03/03/2021 REFERRING PHYSICIAN: Dr. Alistair Moise REASON FOR CONSULTATION: Acute kidney injury. HISTORY OF PRESENT ILLNESS: Ms Vinicius martins a 75-year-old female, who is well known to me with chronic kidney disease and solitary kidney. She has also known diabetes, hypertension, hypothyroidism, DJD, presented with a 4-day onset of left flank pain, which has progressed from 2 to 8 over the last 4 days. She also has palpitations and chills. The initial workup was consistent with severe sepsis with end-organ failure including acute renal failure with elevated BUN and creatinine as well as elevated white count. Lactic acid was also elevated. CT scan of the abdomen at that time was obtained, which showed a possible abscess versus a mass in the left upper pole. A urology consultation was obtained, which did not feel that an intervention can be done at that time. For those reasons, she was hospitalized and has been started on antibiotics. She was initially on pressors, which were subsequently discontinued as she has become more hemodynamically stable. PAST MEDICAL HISTORY: Significant for: 1. History of renal cell carcinoma, status post nephrectomy. 2. Chronic kidney disease with a baseline creatinine of about 1.2 to 1.5. 3. Hyperlipidemia. 4. History of pheochromocytoma. 5. History of osteoporosis. 6. History of anxiety and depression. 7. History of dehydration. 8. History of atrial tachycardia. 9. Constipation. 10. PSVT. PAST SURGICAL HISTORY: 1. She has amputation of the fifth toe. 2. History of abdominal hysterectomy. 3. History of knee surgery. 4. History of lumbar fusion by Dr. Recinos. 5. History of nephrectomy on the right. 6. History of parathyroidectomy. 7. History of partial adrenalectomy of left adrenal gland. 8. History of pheochromocytoma. FAMILY HISTORY: Grandson has diabetes and hypertension. Son has diabetes and hypertension. Daughter has hypertension. Mother has osteoporosis, cancer. Father has cancer and mother has cancer. SOCIAL HISTORY: Reviewed. MARITAL STATUS: She is . Occupation: She is disabled. She has 2 children, 1 daughter and 1 son. MEDICATIONS ON ADMISSION: She is on aspirin 81 mg once daily, cholecalciferol 2000 units once daily, lisinopril 10 mg once daily, polyethylene glycol as needed, Lasix 20 mg once daily, metaxalone 800 mg tablet once daily, ferrous sulfate 325 twice daily, metoprolol 25 mg twice daily, glimepiride 2 mg twice daily, fenofibrate 48 mg daily, oxycodone, and other medications list is not complete. ALLERGIES: SHE IS ALLERGIC TO METFORMIN AND MORPHINE. PHYSICAL EXAMINATION: GENERAL: She is currently in distress. She is not responding. VITAL SIGNS: Her blood pressures have been 110-130 systolic with a diastolic in 60s. Pulse rates have been in the 90-110s. She is on 2 liters, oxygenating well. HEENT: NCAT. Pupils are reactive. Extraocular and tympanic membranes normal. Oral cavity has normal mucosa. NECK: Supple. No jugular venous distention. No lymphadenopathy. No thyromegaly. CHEST: Lungs are decreased air entry bilaterally. No rales or rhonchi. HEART: S1, S2 heard. No S3, S4. There is a 2/6 systolic murmur. ABDOMEN: Soft, nontender, no organomegaly. Positive bowel sounds. EXTREMITIES: Show 2+ edema bilaterally. Difficult to palpate her dorsalis pedis and posterior tibialis. No skin rash or joint swellings noted. LABORATORY DATA: White count is 16.4 with hemoglobin of 10.8 and a platelet count of 150. Sodium 120, potassium 4.0, chloride of 58, CO2 of 15, BUN of 51, creatinine of 2.6, calcium 7.8. Imaging studies showed multiple abscesses within the left kidney with a large one in the apex. ASSESSMENT AND PLAN: 1. Acute kidney injury secondary to contrast nephropathy. She could have sepsis-mediated acute tubular necrosis as well. Her admission serum creatinine was 1.7. When she was hospitalized in December, her creatinine was 1.0, so there is a component of ATN, which happened even prior to she coming into the hospital. The contrast did not help in the hospital. She also have a suppurative pyelonephritis with multiple renal abscesses. I agree with Dr. Moise to transfer the patient to ____ as she needs extensive hospitalization and treatment. Antibiotics will be the mainstay of treatment. A biopsy of the kidney could be done if the renal function does not improve to identify the organism. Thank you Dr. Moise for referring this patient for consultation. I will follow with you. HEIDE:rito Job ID: [id number] Doc ID: [id number] Pardeep Figueroa MD cc:Dr. Alistair Moise
--- NOTE | 2021-03-05 11:07 | Procedure Note ---
PROC Central Line Placement Right IJ: Consent obtained: verbal consent Date of Procedure: 03/02/21 Time out performed: Yes Patient placed on monitor/pulse ox: Yes MD prep: mask, sterile gown, sterile gloves, cap and other Central line prep: 2% Chlorhexidine scrub Local anesthesia used: lidocaine 1% Ultrasound used for placement: Yes Central line lumen inserted: quad and 20 cm Post procedure: sutured in place, good blood return, all ports aspirated, flushed, capped and sterile dressing applied Post procedure x-ray: tip of catheter in good position and no pneumothorax seen Patient tolerated procedure: well Complications: none
== END 2021-03-03 20:30 | disposition short-term general hospital (02) | DRG 871 ==
LOC: ED 12:42 → ICU 17:20
PROVIDERS: ADMIT Internal Medicine; ATTEND Internal Medicine

== ENCOUNTER 2021-06-13 13:36 | Inpatient (IN) ==
[2021-06-13] MEDS ORDERED: 0.9 % SODIUM CHLORIDE 1,000 ML IV ONE ×2 (14:24→22:01)
--- NOTE | 2021-06-13 14:25 | Emergency Department Note ---
HPI <Chey Pace PA-C - Last Filed: 06/13/21 20:45> General Chief complaint: Urogenital-Female Stated complaint: UTI, decreased urine output Time Seen by Provider: 06/13/21 13:47 Source: patient and EMS Mode of arrival: EMS Limitations: physical limitation History of Present Illness HPI Narrative: Narrative: This patient presents by EMS with a complaint of weakness and possible urinary tract infection as well as C. difficile. Patient is accompanied by her daughter. Is reported that the patient had a kidney infection in February. She was seen in this emergency department and transferred to [facility]. She was then discharged to [facility] where she had worsening symptoms and was again transferred, this time to [facility]. After an admission, she was discharged to [facility] and 6 days ago was discharged home. Her daughter brought her to her house where she has been taking care of her for the last 6 days. Previous to FEBRUARY the patient did live independently. For the last 6 days the patient has been unable to get up to use restroom due to weakness. She said multiple episodes of incontinence of stool as well as urine. This is predominantly because the family is unable to make commendation for her before she feels the impending need to go. She has not had any falls. She been without fevers or chills. Family is concerned due to her frequent urination and stools that she may have recurrence of her urinary tract infection and work for C. difficile. They have noted that she has not voided urine since last evening. She has been on multiple doses of antibiotics. She is not currently taking any and has not taken any since she was discharged home. Related Data Home Medications Medication Instructions Recorded Confirmed aspirin 81 mg PO DAILY@1800 05/25/15 06/13/21 cholecalciferol (vitamin D3) 2,000 unit PO DAILY@1800 10/31/17 06/13/21 polyethylene glycol 3350 17 gram 17 g PO QHS PRN each 10/01/19 06/13/21 oral powder packet pantoprazole 40 mg PO DAILY 03/01/21 06/13/21 amiodarone 200 mg tablet 200 mg PO QDAY 04/13/21 06/13/21 trazodone 50 mg tablet 50 mg PO QHS PRN 04/13/21 06/13/21 Glucagon (HCl) Emergency Kit 1 mg SUBCUT Q15M PRN 05/12/21 06/13/21 apixaban 5 mg PO BID 05/12/21 06/13/21 docusate sodium [Colace] 100 mg PO QDAY 05/12/21 06/13/21 fenofibrate nanocrystallized 48 mg PO QDAY 05/12/21 06/13/21 furosemide 20 mg PO QAM PRN 05/12/21 06/13/21 glimepiride 2 mg PO QDAY 05/12/21 06/13/21 hydroxyzine HCl 50 mg PO BID PRN 05/12/21 06/13/21 lamotrigine 150 mg PO QDAY 05/12/21 06/13/21 loperamide 2 mg PO QDAY PRN 05/12/21 06/13/21 magnesium hydroxide [Milk of 30 ml PO QDAY PRN 05/12/21 06/13/21 Magnesia] simethicone 80 mg PO Q6H PRN 05/12/21 06/13/21 oxybutynin chloride 10 mg 10 mg PO QDAY 06/08/21 06/13/21 tablet,extended release 24 hr sodium phosphates 19 gram-7 118 ml MO ONCE PRN 06/08/21 06/13/21 gram/118 mL enema atorvastatin 40 mg PO QAM 06/13/21 06/13/21 Previous Rx's Medication Instructions Recorded Attends discreet bladder control #1 ea 02/29/20 pads ultimate #8 levothyroxine 112 mcg tablet 112 mcg PO QDAY #90 tab 09/20/20 ferrous sulfate 325 mg (65 mg 325 mg PO QDAY #90 tab 09/26/20 iron) tablet blood sugar diagnostic #200 each 09/27/20 duloxetine 60 mg capsule,delayed 60 mg PO BID #60 cap 11/28/20 release sitagliptin 100 mg tablet 100 mg PO QDAY #90 tab 01/05/21 metoprolol tartrate 25 mg tablet 25 mg PO QDAY #30 tab 03/20/21 oxycodone-acetaminophen 10 mg-325 1 tab PO QID PRN #120 tab 06/06/21 mg tablet Allergies Allergy/AdvReac Type Severity Reaction Status Date / Time metformin AdvReac Mild Nausea Verified 06/13/21 13:46 morphine AdvReac Mild Agitated Verified 06/13/21 13:46 Review of Systems <Chey Pace PA-C - Last Filed: 06/13/21 20:45> ROS ROS Narrative: Narrative: Pertinent positives and negatives as noted in HPI. All other systems reviewed and negative. PFSH <Chey Pace PA-C - Last Filed: 06/13/21 20:45> Narrative Patient History Narrative: Narrative: Medical/Surgical/Family History All Active Problems (Updated 06/13/21 @ 20:45 by Chey Pace PA-C) Colitis (Acute) History of Clostridioides difficile colitis (Acute) Wheelchair bound (Acute) Decreased mobility and endurance (Acute) Hypotension (Acute) AMOS (acute kidney injury) (Acute) Contusion (Chronic) Fall against sharp object (Chronic) Dehydration (Chronic) Sinus tachycardia (Chronic) Narrow complex tachycardia (Chronic) Atrial tachycardia (Chronic) Knee osteoarthritis (Chronic) Knee pain, right (Chronic) Constipation (Chronic) Weakness (Chronic) Anemia (Chronic) Urinary incontinence (Chronic) 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) Onychomycosis of toenail (Chronic) Memory impairment (Chronic) Unspecified disorder of parathyroid gland (Chronic) COPD (chronic obstructive pulmonary disease) (Chronic) Hypothyroidism (Chronic) Pulmonary nodule (Chronic) Hypercalcemia (Chronic) Fatigue (Chronic) Bilateral leg edema (Chronic) Synovial cyst of popliteal space [Pack], right knee (Chronic) Anxiety (Chronic) Depression (Chronic) Well adult exam (Chronic) Headache (Chronic) Insomnia (Chronic) Shoulder pain (Chronic) Sleep apnea (Chronic) Hyperlipidemia (Chronic) Hypertriglyceridemia (Chronic) Stress (Chronic) Back pain with radiculopathy (Chronic) Paresthesia (Chronic) Osteoporosis (Chronic) History of pheochromocytoma (Chronic) Obesity (Chronic) Degenerative disc disease (Chronic) Type 2 diabetes mellitus without complications (Chronic) Medication monitoring encounter (Chronic) Tongue abnormality (Chronic) GERD (gastroesophageal reflux disease) (Chronic) Paroxysmal supraventricular tachycardia by electrocardiogram (ECG) (Chronic) Abdominal pain (Chronic) Renal cell carcinoma (Chronic) Acute hyponatremia (Chronic) Acute on chronic renal insufficiency (Chronic) Renal mass, left (Chronic) Pyuria (Chronic) Solitary left kidney (Chronic) Anuria (Chronic) Pheochromocytoma of left adrenal gland (Chronic) Diabetes (Chronic) Bleeding (Chronic) Pyelonephritis (Chronic) Septic shock (Chronic) Renal failure (Chronic) Atrial fibrillation with RVR (Chronic) Hypertension (Chronic) Dyslipidemia (Chronic) Normocytic anemia (Chronic) Chronic back pain (Chronic) Leukocytosis (Chronic) Limited mobility (Chronic) Tenderness (Chronic) History of lumbar spinal fusion (Chronic ~2009) Mild back pain (Chronic) Severe sepsis (Chronic) Acute kidney injury with acute tubular necrosis (Chronic) Hyponatremia (Chronic) Encephalopathy acute (Chronic) SVETA (obstructive sleep apnea) (Chronic) Renal cancer (Chronic) Flank pain (Chronic) Kidney infection (Chronic) UTI (urinary tract infection) (Chronic) Medical History Abdominal pain Acute hyponatremia Acute kidney injury with acute tubular necrosis Acute on chronic renal insufficiency Anemia Anuria Anxiety Atrial fibrillation with RVR Atrial tachycardia Back pain with radiculopathy Bilateral leg edema Bleeding Chronic back pain CKD stage 3 secondary to diabetes Constipation Contusion COPD (chronic obstructive pulmonary disease) Degenerative disc disease Dehydration Depression Diabetes type 2 Dyslipidemia Encephalopathy acute Fall against sharp object Fatigue Flank pain GERD (gastroesophageal reflux disease) Headache History of pheochromocytoma Hypercalcemia Hyperlipidemia Hypertension Hypertriglyceridemia Hyponatremia Hypothyroidism Insomnia Kidney infection right Knee osteoarthritis Knee pain, right Leukocytosis Limited mobility at baseline Medication monitoring encounter Memory impairment Mild back pain Narrow complex tachycardia Normocytic anemia Obesity Onychomycosis of toenail SVETA (obstructive sleep apnea) Osteoporosis Paresthesia Paroxysmal supraventricular tachycardia by electrocardiogram (ECG) Pheochromocytoma of left adrenal gland Pulmonary nodule Pyelonephritis Pyuria Renal cancer right Renal cell carcinoma Renal failure Renal mass, left Septic shock Severe sepsis left pyelonephritis Shoulder pain Sinus tachycardia Sleep apnea Solitary left kidney Stress Synovial cyst of popliteal space [Pack], right knee Tenderness both hips Tongue abnormality Type 2 diabetes mellitus without complications Unspecified disorder of parathyroid gland Urinary incontinence UTI (urinary tract infection) Weakness Well adult exam Surgical History Amputated toe of right foot (~12/16/17) amputation of right fifth toe-12/16/17 Dr. Gustavo Garcia History of abdominal hysterectomy (~2008) History of knee surgery (~11/2018) knee surgery-12/16 Dr. Recinos History of lumbar fusion (~02/2010) Dr Romo History of lumbar spinal fusion (~2009) History of nephrectomy, right History of parathyroidectomy (~05/2015) May 2015 removal of parathyroid adenoma by Dr. Napoles in [place] History of partial adrenalectomy Removed left adrenal gland Pheochromocytoma Family History Grandmother Diabetes Hypertension Son Diabetes Hypertension Daughter Hypertension Mother Osteoporosis Cancer Father Cancer Brother Cancer Social History Smoking Status: Never smoker Alcohol Intake Frequency: does not drink Exam <Chey Pace PA-C - Last Filed: 06/13/21 20:45> Narrative Narrative: Narrative: Vital signs noted General: mild distress. Skin: Warm. Dry. No rash. Normal color. Eyes: PERRL. EOMI. Mouth: Membranes dry. Normal inspection. Neck: Good ROM. No meningeal signs. Supple. Cardiovascular: Regular rate and rhythm. No murmur. Respiratory: No respiratory distress. Breath sounds equal. No whee zing/rales/rhonchi. Gastrointestinal: Abdomen soft. Left lower tenderness. No distention. Normal bow el sounds. No rebound tenderness or guarding. Back: Normal inspection. No CVA tenderness. No midline tenderness. Extremities: No tenderness. No swelling. No erythema. No edema. Good peripheral pulses x 4 Neurological: No focal neurological deficits observed. Alert. Oriented x 3 General Limitations: physical limitation Course <Chey Pace PA-C - Last Filed: 06/13/21 20:45> Course Course Narrative: IV established by EMS. Labs ordered and reviewed UA is negative Stool sample is positive for Covid toxin with pending PCR study. Due to the patient's abdominal discomfort on exam a CT of the abdomen pelvis is ordered. CT is reported be significant stranding of the left kidney without a stone as well as inflammation to the bladder. This gives the question on imaging for urinary tract infection, however the patient's urine is negative. There is also note of atelectasis versus infiltrate of the right lower lobe. The patient does not endorse any shortness of breath, however this is difficult to ascertain as she is essentially been in bed since being discharged home [address] is also reported to be significant for thickening of the descending and sigmoid colon concerning for colitis. Given the patient's incontinence to stool, abdominal discomfort, elevated white count and recent history of C. difficile and for worse of her infection and also contributing to her weakness. She discussed with the hospitalist service for admission of colitis. She is medicated with oral vancomycin. Case management is working with the family regarding permanent [facility] placement after discharge. Vital Signs Vital signs: Vital Signs Temperature 98.7 F 06/13/21 13:43 Pulse Rate 75 06/13/21 13:43 Respiratory Rate 18 06/13/21 13:43 Blood Pressure 124/63 06/13/21 13:43 Pulse Oximetry (%) 96 06/13/21 13:43 Temperature 98.6 F 06/14/21 00:00 Pulse Rate 90 06/14/21 00:00 Respiratory Rate 20 06/14/21 00:00 Blood Pressure 111/60 06/14/21 00:00 Pulse Oximetry (%) 98 06/14/21 00:00 <Emerson Mercedes MD - Last Filed: 06/14/21 04:18> Vital Signs Vital signs: Vital Signs Temperature 98.7 F 06/13/21 13:43 Pulse Rate 75 06/13/21 13:43 Respiratory Rate 18 06/13/21 13:43 Blood Pressure 124/63 06/13/21 13:43 Pulse Oximetry (%) 96 06/13/21 13:43 Temperature 98.6 F 06/14/21 00:00 Pulse Rate 90 06/14/21 00:00 Respiratory Rate 20 06/14/21 00:00 Blood Pressure 111/60 06/14/21 00:00 Pulse Oximetry (%) 98 06/14/21 00:00 MDM <Chey Pace PA-C - Last Filed: 06/13/21 20:45> MDM Narrative Medical decision making narrative: Narrative: Lab Data Result diagrams: 06/13/21 14:53 06/13/21 14:53 Labs: Lab Results 06/13/21 06/13/21 06/13/21 Range/Units 14:53 14:53 14:57 WBC 16.3 H (4.5-11.0) K/mcL RBC 3.50 L (3.59-5.38) M/mcL Hgb 9.7 L (11.2-15.7) g/dL Hct 29.6 L (34.1-44.9) % POC Hct 30 L (36-48) % MCV 84.6 (80.0-100.0) fL MCH 27.7 (26.0-34.0) pg MCHC 32.8 (31.0-36.0) g/dL RDW 17.1 H (11.5-14.5) % Plt Count 251 (140-440) K/mcL MPV 8.5 (7.4-10.4) fL Neut % (Auto) 83.7 H (38.0-78.0) % Lymph % (Auto) 5.0 L (15.5-49.0) % [place] % (Auto) 8.4 (1.0-12.0) % Eos % (Auto) 2.4 (0.0-7.0) % Baso % (Auto) 0.5 (0.0-2.0) % Lymph # (Auto) 0.82 L (1.50-4.80) K/mcL [place] # (Auto) 1.37 H (0.10-0.90) K/mcL Eos # (Auto) 0.40 (0.00-0.70) K/mcL Baso # (Auto) 0.08 (0.00-0.30) K/mcL Absolute Neutrophils 13.67 H (1.80-8.00) K/mcL POC Sodium 132 L (133-145) mEq/L Sodium 130 L (133-145) mmol/L POC Potassium 4.1 (3.3-5.1) mEql/L Potassium 4.3 (3.3-5.1) mmol/L POC Chloride 100 (96-108) mEq/L Chloride 96 (96-108) mmol/L Carbon Dioxide 20 L (22-30) mmol/L POC Total CO2 21 L (22-30) mmol/L Anion Gap 14.0 (8.0-16.0) POC BUN 32 H (6-20) mg/dL BUN 32 H (8-23) mg/dL Creatinine 1.5 H (0.6-1.1) mg/dL POC Creatinine 1.5 H (0.6-1.2) mg/dL GFR Calculation 33 Glucose 109 H (70-105) mg/dL POC Glucose 113 H (70-105) mg/dL Calcium 8.7 (8.6-10.4) mg/dL POC WB Ioniz Calcium 1.18 (1.16-1.32) mmEq/L Total Bilirubin 0.2 (0.1-1.0) mg/dL AST 11 (<32) U/L ALT < 5 (<40) U/L Alkaline Phosphatase 57 (39-117) U/L Total Protein 6.5 (5.9-8.4) gm/dL Albumin 3.4 (3.2-5.2) gm/dL Globulin 3.1 (2.2-3.7) gm/dL Albumin/Globulin Ratio 1.1 (1.0-2.3) Urine Color Yellow Urine Appearance Hazy A (Clear) Urine pH 5.0 (5.0-9.0) Ur Specific [place] 1.016 (1.000-1.035) Urine Protein Negative (Negative) mg/dL Urine Glucose (UA) Negative (Negative) mg/dL Urine Ketones Negative (Negative) mg/dL Urine Occult Blood Negative (Negative) mg/dL Urine Nitrate Negative (Negative) Urine Bilirubin Negative (Negative) mg/dL Urine Urobilinogen Negative mg/dL Ur Leukocyte Esterase 75 A (Negative) /ug Urine RBC 2 (0-3) /hpf Urine WBC 6 H (0-4) /hpf Ur Squamous Epith Cells < 1 (0-4) /hpf Urine Bacteria None (0) /hpf Hyaline Casts 4 H (0-2) /lph Urine Mucus Few A (None) /hpf Ur Culture Indicated? No ED POC Tests ED POC Tests: CHRIS - SARS Antigen Negative <Emerson Mercedes MD - Last Filed: 06/14/21 04:18> Lab Data Labs: Lab Results 06/13/21 06/13/21 06/13/21 Range/Units 14:53 14:53 14:57 WBC 16.3 H (4.5-11.0) K/mcL RBC 3.50 L (3.59-5.38) M/mcL Hgb 9.7 L (11.2-15.7) g/dL Hct 29.6 L (34.1-44.9) % POC Hct 30 L (36-48) % MCV 84.6 (80.0-100.0) fL MCH 27.7 (26.0-34.0) pg MCHC 32.8 (31.0-36.0) g/dL RDW 17.1 H (11.5-14.5) % Plt Count 251 (140-440) K/mcL MPV 8.5 (7.4-10.4) fL Neut % (Auto) 83.7 H (38.0-78.0) % Lymph % (Auto) 5.0 L (15.5-49.0) % [place] % (Auto) 8.4 (1.0-12.0) % Eos % (Auto) 2.4 (0.0-7.0) % Baso % (Auto) 0.5 (0.0-2.0) % Lymph # (Auto) 0.82 L (1.50-4.80) K/mcL [place] # (Auto) 1.37 H (0.10-0.90) K/mcL Eos # (Auto) 0.40 (0.00-0.70) K/mcL Baso # (Auto) 0.08 (0.00-0.30) K/mcL Absolute Neutrophils 13.67 H (1.80-8.00) K/mcL POC Sodium 132 L (133-145) mEq/L Sodium 130 L (133-145) mmol/L POC Potassium 4.1 (3.3-5.1) mEql/L Potassium 4.3 (3.3-5.1) mmol/L POC Chloride 100 (96-108) mEq/L Chloride 96 (96-108) mmol/L Carbon Dioxide 20 L (22-30) mmol/L POC Total CO2 21 L (22-30) mmol/L Anion Gap 14.0 (8.0-16.0) POC BUN 32 H (6-20) mg/dL BUN 32 H (8-23) mg/dL Creatinine 1.5 H (0.6-1.1) mg/dL POC Creatinine 1.5 H (0.6-1.2) mg/dL GFR Calculation 33 Glucose 109 H (70-105) mg/dL POC Glucose 113 H (70-105) mg/dL Calcium 8.7 (8.6-10.4) mg/dL POC WB Ioniz Calcium 1.18 (1.16-1.32) mmEq/L Total Bilirubin 0.2 (0.1-1.0) mg/dL AST 11 (<32) U/L ALT < 5 (<40) U/L Alkaline Phosphatase 57 (39-117) U/L Total Protein 6.5 (5.9-8.4) gm/dL Albumin 3.4 (3.2-5.2) gm/dL Globulin 3.1 (2.2-3.7) gm/dL Albumin/Globulin Ratio 1.1 (1.0-2.3) Urine Color Yellow Urine Appearance Hazy A (Clear) Urine pH 5.0 (5.0-9.0) Ur Specific [place] 1.016 (1.000-1.035) Urine Protein Negative (Negative) mg/dL Urine Glucose (UA) Negative (Negative) mg/dL Urine Ketones Negative (Negative) mg/dL Urine Occult Blood Negative (Negative) mg/dL Urine Nitrate Negative (Negative) Urine Bilirubin Negative (Negative) mg/dL Urine Urobilinogen Negative mg/dL Ur Leukocyte Esterase 75 A (Negative) /ug Urine RBC 2 (0-3) /hpf Urine WBC 6 H (0-4) /hpf Ur Squamous Epith Cells < 1 (0-4) /hpf Urine Bacteria None (0) /hpf Hyaline Casts 4 H (0-2) /lph Urine Mucus Few A (None) /hpf Ur Culture Indicated? No ED POC Tests ED POC Tests: CHRIS - SARS Antigen Negative Discharge Plan Patient/Caregiver Discharge Instructions Pt seen by [facility] ICER/PA only: Yes Clinical Impression: Colitis Patient Disposition: Xfer As Outpt/Obs ([facility]) Condition: Fair Discharge Date/Time: 06/13/21 21:52
[2021-06-13 15:02] LABS: POC Blood Urea Nitrogen 32 mg/dL (6-20); POC CO2 21 mmol/L (22-30); POC Calcium, Ionized 1.18 mmEq/L (1.16-1.32); POC Chloride 100 mEq/L (96-108); POC Creatinine 1.5 mg/dL (0.6-1.2); POC Glucose, Random 113 mg/dL (70-105); POC Hematocrit 30 % (36-48); POC Potassium 4.1 mEql/L (3.3-5.1); POC Sodium 132 mEq/L (133-145)
[2021-06-13 15:40] LABS: Appearance,Urine HAZY (Clear); Bilirubin,Urine Negative (Negative); Color,Urine YELLOW; Culture Indicated,Urine No; Glucose,Urine (UA) Negative (Negative); Ketones,Urine Negative (Negative); Leukocyte Esterase,Urine 75 /ug (Negative); Mucus,Urine FEW /hpf; Nitrate,Urine Negative (Negative); Protein,Urine Negative (Negative); Specific Gravity,Urine 1.016 (1.000-1.035); Urine Blood Negative (Negative); Urine Hyaline Cast 4 /lph (0-2); Urine RBC 2 /hpf (0-3); Urine Squamous Epithelial Cell < 1 /hpf (0-4); Urine WBC 6 /hpf (0-4); Urobilinogen,Urine Negative
[2021-06-13 15:54] LABS: ALT/SGPT < 5 U/L (<40); AST/SGOT 11 U/L (<32); Albumin 3.4 gm/dL (3.2-5.2); Albumin/Globulin Ratio 1.1 (1.0-2.3); Alkaline Phosphatase 57 U/L (39-117); Basophils # (Auto) 0.08 K/mcL (0.00-0.30); Basophils % (Auto) 0.5 % (0.0-2.0); Bilirubin,Total 0.2 mg/dL (0.1-1.0); Blood Urea Nitrogen 32 mg/dL (8-23); Calcium 8.7 mg/dL (8.6-10.4); Carbon Dioxide 20 mmol/L (22-30); Chloride 96 mmol/L (96-108); Eosinophils % (Auto) 2.4 % (0.0-7.0); Globulin 3.1 gm/dL (2.2-3.7); Glomerular Filtration Rate 33; Glucose 109 mg/dL (70-105); Hematocrit 29.6 % (34.1-44.9); Hemoglobin 9.7 g/dL (11.2-15.7); Lymphocytes # (Auto) 0.82 K/mcL (1.50-4.80); Mean Cell Volume 84.6 fL (80.0-100.0); Mean Corpuscular HGB Conc 32.8 g/dL (31.0-36.0); Mean Platelet Volume 8.5 fL (7.4-10.4); Monocytes # (Auto) 1.37 K/mcL (0.10-0.90); Monocytes % (Auto) 8.4 % (1.0-12.0); Neutrophils % (Auto) 83.7 % (38.0-78.0); Platelet Count 251 K/mcL (140-440); Red Cell Distribution Width 17.1 % (11.5-14.5); WBC 16.3 K/mcL (4.5-11.0)
--- NOTE | 2021-06-13 17:03 | XRay Report ---
HISTORY: History: Increased weakness, decreased urine output, urinary tract infection FINDINGS: There is mild to moderately enlarged but magnified by portable technique. There is a generalized haziness throughout the lung parenchyma in the left lung. There are thick bands of consolidated tissue centrally and inferiorly in the right lung. Right diaphragm is mildly elevated. No pleural effusion is present. Moderate amount of calcified plaque is present aortic arch. There are surgical clips at the left thoracic inlet. Postsurgical changes are also present following prior discectomy and fusion in the lower neck. Moderate osteoarthritis is present in both shoulders. IMPRESSION: Bands of consolidated lung parenchyma centrally and inferiorly in the right lung which may be a combination of pneumonia and atelectasis More diffuse alveolar infiltrates throughout the left lung which could be pneumonia or asymmetric distribution of pulmonary edema. Stable cardiomegaly, unchanged from 05/12/21 Interpreted and Authenticated by: Aldo Colvin 06/13/21
--- NOTE | 2021-06-13 17:20 | Cat Scan Report ---
History: Left lower quadrant pain, recent history of C. Difficile, urinary tract infection with diminished urinary output TECHNIQUE: The patient was imaged without contrast from the diaphragm through the symphysis pubis. Sagittal and coronal reformats were created. The radiation exposure was limited using dose reduction technology. FINDINGS: Heart is mild to moderately enlarged. There is a moderate amount calcified plaque in the coronary arteries. There is moderate consolidation of lung parenchyma in the right lower lobe and inferiorly in the right middle lobe. This has a heterogeneous distribution and may be a combination of atelectasis and pneumonia. Thin band of scar or discoid atelectasis is seen in the medial basal segment left lower lobe and there is another similar finding in the inferior segment of lingula. No pleural effusion is present. Evaluation the abdominal organs without contrast is limited. The liver and spleen are normal in size and homogeneous. Right diaphragm is moderately elevated. There is no subdiaphragmatic mass or fluid collection. The gallbladder is been removed. Common bile duct measures up to 1 cm. Intrahepatic ducts are nondilated. There is no evidence of stone at the ampulla. The pancreas appears normal without evidence of inflammation or dilatation of the duct. The right kidney has been removed. The left kidney has mild hypertrophy. There is stranding of the perirenal fat. There is mild dilatation left renal pelvis and spot thickening of the wall the pelvis and infundibula. There is also mild thickening of the wall of the proximal left ureter. There is no evidence of a stone in the ureter. The ureter below the UPJ is decompressed. A 1.3 cm exophytic cyst is present laterally in the midportion left kidney. On the prior ultrasound done on 05/18/21 the upper pole of the kidney. Heterogeneous. This is less apparent on today's unenhanced CT scan. There is no gross evidence of a mass. No abscess is present around the kidney. Aorta is normal in caliber. Moderate amount calcified plaque is present in the aorta and iliac arteries. There is circumferential thickening of the wall of the descending and sigmoid colon with stranding of the adjacent fat. The wall measures up to 1.5 cm in thickness. Moderate amount stool is present in nondistended ascending and transverse colon. The appendix is noninflamed. Small intestine is normal. Impression no ascites adenopathy or abscess are present. Urinary bladder is partially emptied. There has mild asymmetric thickening of the wall the bladder anteriorly and on the left side. The patient has a moderate-sized fat-containing left inguinal hernia. There is tethering of the bladder towards the inguinal ring. Prior hysterectomy has been performed. There is severe spinal canal stenosis at L2-3 and L3-4 due to degenerative changes. There has been prior discectomy and fusion at L4-5 IMPRESSION: Moderate colitis involving the descending and sigmoid colon, without evidence of perforation. Fullness of the left renal pelvis with stranding of the fat around the renal pelvis and kidney. The appearance is compatible with a urinary tract infection.. Atelectasis and/or pneumonia in the right middle and right lower lobes Chey Pace was called with the report Chey Pace was called with the report Interpreted and Authenticated by: Aldo Colvin 06/13/21
--- NOTE | 2021-06-13 20:47 | Emergency Department Note ---
ED Note Addendum <Chey Pace PA-C - Last Filed: 06/13/21 20:47> Note Addendum: EKG shows atrial fibrillation at a rate of 96. QRS complexes are narrow and irregular intervals. No ST elevation or depression.
[2021-06-13] MEDS ORDERED: VANCOMYCIN 125 MG CAPSULE PO SCH ×2 (21:00→22:01)
--- NOTE | 2021-06-13 21:11 | Internal Med History&Physical ---
HPI History of Present Illness Patient information: Note initiated : 06/13/21 at 9:06 pm Service Date, if different from initiated Date: [] Patient: Ruby Colvin 81 y/o F admitted on for UTI, decreased urine output. Chief Complaint: [] History of present illness: Ms. Colvin is a 81 year old female with a complex medical history who is wheelchair bound and recently has been hospitalized multiple times and spent time at multiple shelter facilities. She says she was discharged from a shelter facility ([facility]) on 06/08/21 to stay with her daughter. At [facility] she was treated for Clostridium difficile colitis, she says she completed treatment prior to discharge. On the day of discharge she once again developed diarrhea 15 to 20 times a day associated with crampy abdominal pain. She was incontinent of stool and urine and brought to the ED with her daughter. The patient has been extremely tired as well requiring extra assistance by family members. The patient denies chills or fevers. In the ED the patient had leukocytosis and an elevated creatine of 1.5. Stool C diff GDH/Toxin A+B panel was reported as intermediate. CT abdomen/pelvis without contrast was most remarkable for moderate colitis involving the descending and sigmoid colon. Review of systems Constitutional: positive for fatigue, no chills or fevers Eyes: no vision changes or pain Cardiovascular: no chest pain, no palpitations Respiratory: no cough or dyspnea Gastrointestinal: positive for diarrhea and fecal incontinence Genitourinary: no dysuria Musculoskeletal: chronic lower extremity weakness Integumentary: no skin lesion or wound Neurological: no focal weakness or numbness Psychiatric: no anxiety or depression Physical exam Head: Atraumatic, normal inspection. Eyes: normal appearance, no scleral icterus. Neck: full ROM Respiratory: no respiratory distress. Cardiovascular: normal rate and rhythm, S1, S2. GI/Abdominal: obesity distended, soft, nontender, no guarding. Extremities: full range of motion, nontender. Neurological: CN II-XII intact, lower extremity weakness bilaterally, intact sensation. Psychiatric: normal mood. Skin: warm, normal color PFSH PFSH All Active Problems (Updated 06/13/21 @ 20:45 by Chey Pace PA-C) Colitis (Acute) History of Clostridioides difficile colitis (Acute) Wheelchair bound (Acute) Decreased mobility and endurance (Acute) Hypotension (Acute) AMOS (acute kidney injury) (Acute) Contusion (Chronic) Fall against sharp object (Chronic) Dehydration (Chronic) Sinus tachycardia (Chronic) Narrow complex tachycardia (Chronic) Atrial tachycardia (Chronic) Knee osteoarthritis (Chronic) Knee pain, right (Chronic) Constipation (Chronic) Weakness (Chronic) Anemia (Chronic) Urinary incontinence (Chronic) 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) Onychomycosis of toenail (Chronic) Memory impairment (Chronic) Unspecified disorder of parathyroid gland (Chronic) COPD (chronic obstructive pulmonary disease) (Chronic) Hypothyroidism (Chronic) Pulmonary nodule (Chronic) Hypercalcemia (Chronic) Fatigue (Chronic) Bilateral leg edema (Chronic) Synovial cyst of popliteal space [Pack], right knee (Chronic) Anxiety (Chronic) Depression (Chronic) Well adult exam (Chronic) Headache (Chronic) Insomnia (Chronic) Shoulder pain (Chronic) Sleep apnea (Chronic) Hyperlipidemia (Chronic) Hypertriglyceridemia (Chronic) Stress (Chronic) Back pain with radiculopathy (Chronic) Paresthesia (Chronic) Osteoporosis (Chronic) History of pheochromocytoma (Chronic) Obesity (Chronic) Degenerative disc disease (Chronic) Type 2 diabetes mellitus without complications (Chronic) Medication monitoring encounter (Chronic) Tongue abnormality (Chronic) GERD (gastroesophageal reflux disease) (Chronic) Paroxysmal supraventricular tachycardia by electrocardiogram (ECG) (Chronic) Abdominal pain (Chronic) Renal cell carcinoma (Chronic) Acute hyponatremia (Chronic) Acute on chronic renal insufficiency (Chronic) Renal mass, left (Chronic) Pyuria (Chronic) Solitary left kidney (Chronic) Anuria (Chronic) Pheochromocytoma of left adrenal gland (Chronic) Diabetes (Chronic) Bleeding (Chronic) Pyelonephritis (Chronic) Septic shock (Chronic) Renal failure (Chronic) Atrial fibrillation with RVR (Chronic) Hypertension (Chronic) Dyslipidemia (Chronic) Normocytic anemia (Chronic) Chronic back pain (Chronic) Leukocytosis (Chronic) Limited mobility (Chronic) Tenderness (Chronic) History of lumbar spinal fusion (Chronic ~2009) Mild back pain (Chronic) Severe sepsis (Chronic) Acute kidney injury with acute tubular necrosis (Chronic) Hyponatremia (Chronic) Encephalopathy acute (Chronic) SVETA (obstructive sleep apnea) (Chronic) Renal cancer (Chronic) Flank pain (Chronic) Kidney infection (Chronic) UTI (urinary tract infection) (Chronic) Medical History Abdominal pain Acute hyponatremia Acute kidney injury with acute tubular necrosis Acute on chronic renal insufficiency Anemia Anuria Anxiety Atrial fibrillation with RVR Atrial tachycardia Back pain with radiculopathy Bilateral leg edema Bleeding Chronic back pain CKD stage 3 secondary to diabetes Constipation Contusion COPD (chronic obstructive pulmonary disease) Degenerative disc disease Dehydration Depression Diabetes type 2 Dyslipidemia Encephalopathy acute Fall against sharp object Fatigue Flank pain GERD (gastroesophageal reflux disease) Headache History of pheochromocytoma Hypercalcemia Hyperlipidemia Hypertension Hypertriglyceridemia Hyponatremia Hypothyroidism Insomnia Kidney infection right Knee osteoarthritis Knee pain, right Leukocytosis Limited mobility at baseline Medication monitoring encounter Memory impairment Mild back pain Narrow complex tachycardia Normocytic anemia Obesity Onychomycosis of toenail SVETA (obstructive sleep apnea) Osteoporosis Paresthesia Paroxysmal supraventricular tachycardia by electrocardiogram (ECG) Pheochromocytoma of left adrenal gland Pulmonary nodule Pyelonephritis Pyuria Renal cancer right Renal cell carcinoma Renal failure Renal mass, left Septic shock Severe sepsis left pyelonephritis Shoulder pain Sinus tachycardia Sleep apnea Solitary left kidney Stress Synovial cyst of popliteal space [Pack], right knee Tenderness both hips Tongue abnormality Type 2 diabetes mellitus without complications Unspecified disorder of parathyroid gland Urinary incontinence UTI (urinary tract infection) Weakness Well adult exam Surgical History Amputated toe of right foot (~12/16/17) amputation of right fifth toe-12/16/17 Dr. Gustavo Garcia History of abdominal hysterectomy (~2008) History of knee surgery (~11/2018) knee surgery-12/16 Dr. Recinos History of lumbar fusion (~02/2010) Dr Romo History of lumbar spinal fusion (~2009) History of nephrectomy, right History of parathyroidectomy (~05/2015) May 2015 removal of parathyroid adenoma by Dr. Napoles in [place] History of partial adrenalectomy Removed left adrenal gland Pheochromocytoma Family History Grandmother Diabetes Hypertension Son Diabetes Hypertension Daughter Hypertension Mother Osteoporosis Cancer Father Cancer Brother Cancer Social History marital status: occupational status: disabled smoking status: Never smoker alcohol intake frequency: does not drink additional history: 2 children-1 daughter, 1 son (difficult, stressful relationship especially with son) MEDS/ALLERGIES Home Medications and Allergies Home Medications Medication Instructions Recorded Confirmed Type aspirin 81 mg PO DAILY@1800 05/25/15 06/08/21 History cholecalciferol (vitamin D3) 2,000 unit PO DAILY@1800 10/31/17 06/08/21 History lisinopril 10 mg tablet 10 mg PO DAILY #90 tab 09/11/19 06/08/21 Rx polyethylene glycol 3350 17 gram 17 g PO QHS PRN each 10/01/19 06/08/21 History oral powder packet Attends discreet bladder control #1 ea 02/29/20 06/08/21 Rx pads ultimate #8 levothyroxine 112 mcg tablet 112 mcg PO QDAY #90 tab 09/20/20 06/08/21 Rx ferrous sulfate 325 mg (65 mg 325 mg PO QDAY #90 tab 09/26/20 06/08/21 Rx iron) tablet blood sugar diagnostic #200 each 09/27/20 06/08/21 Rx duloxetine 60 mg capsule,delayed 60 mg PO BID #60 cap 11/28/20 06/08/21 Rx release sitagliptin 100 mg tablet 100 mg PO QDAY #90 tab 01/05/21 06/08/21 Rx atorvastatin 40 mg tablet 40 mg PO DAILY@1800 #90 tab 02/08/21 06/08/21 Rx pantoprazole 40 mg PO DAILY 03/01/21 06/08/21 History metoprolol tartrate 25 mg tablet 25 mg PO QDAY #30 tab 03/20/21 06/08/21 Rx amiodarone 200 mg tablet 200 mg PO QDAY 04/13/21 06/08/21 History amlodipine 10 mg tablet 10 mg PO HS 04/13/21 06/08/21 History trazodone 50 mg tablet 50 mg PO QHS PRN 04/13/21 06/08/21 History Align 4 mg PO QDAY 05/12/21 06/08/21 History Combivent Respimat 1 puff INHALATION Q6H 05/12/21 06/08/21 History Glucagon (HCl) Emergency Kit 1 mg SUBCUT Q15M PRN 05/12/21 06/08/21 History apixaban 5 mg PO BID 05/12/21 06/08/21 History bisacodyl [Dulcolax (bisacodyl)] 10 mg OR QDAY PRN 05/12/21 06/08/21 History docusate sodium [Colace] 100 mg PO QDAY 05/12/21 06/08/21 History fenofibrate nanocrystallized 48 mg PO QDAY 05/12/21 06/08/21 History furosemide 20 mg PO QAM PRN 05/12/21 06/08/21 History glimepiride 2 mg PO QDAY 05/12/21 06/08/21 History hydroxyzine HCl 50 mg PO BID PRN 05/12/21 06/08/21 History lamotrigine 150 mg PO QDAY 05/12/21 06/08/21 History loperamide 2 mg PO QDAY PRN 05/12/21 06/08/21 History magnesium hydroxide [Milk of 30 ml PO QDAY PRN 05/12/21 06/08/21 History Magnesia] simethicone 80 mg PO Q6H PRN 05/12/21 06/08/21 History oxycodone-acetaminophen 10 mg-325 1 tab PO QID PRN #120 tab 06/06/21 06/08/21 Rx mg tablet oxybutynin chloride 10 mg 10 mg PO QDAY 06/08/21 06/08/21 History tablet,extended release 24 hr sodium phosphates 19 gram-7 118 ml OR ONCE PRN 06/08/21 06/08/21 History gram/118 mL enema Allergies Allergy/AdvReac Type Severity Reaction Status Date / Time metformin AdvReac Mild Nausea Verified 06/13/21 13:46 morphine AdvReac Mild Agitated Verified 06/13/21 13:46 EXAM Constitutional Vitals: Temp Pulse Resp BP Pulse Ox 98.7 F 96 H 16 111/60 93 06/13/21 13:43 06/13/21 21:01 06/13/21 21:01 06/13/21 21:01 06/13/21 21:01 DATA Data Completed and Pending Labs: Labs from last 24 hours 06/13/21 06/13/21 06/13/21 14:57 14:53 14:53 WBC 16.3 H RBC 3.50 L Hgb 9.7 L Hct 29.6 L POC Hct 30 L MCV 84.6 MCH 27.7 MCHC 32.8 RDW 17.1 H Plt Count 251 MPV 8.5 Neut % (Auto) 83.7 H Lymph % (Auto) 5.0 L [place] % (Auto) 8.4 Eos % (Auto) 2.4 Baso % (Auto) 0.5 Lymph # (Auto) 0.82 L [place] # (Auto) 1.37 H Eos # (Auto) 0.40 Baso # (Auto) 0.08 Absolute Neutrophils 13.67 H POC Sodium 132 L Sodium 130 L POC Potassium 4.1 Potassium 4.3 POC Chloride 100 Chloride 96 Carbon Dioxide 20 L POC Total CO2 21 L Anion Gap 14.0 POC BUN 32 H BUN 32 H Creatinine 1.5 H POC Creatinine 1.5 H GFR Calculation 33 Glucose 109 H POC Glucose 113 H Calcium 8.7 POC WB Ioniz Calcium 1.18 Total Bilirubin 0.2 AST 11 ALT < 5 Alkaline Phosphatase 57 Total Protein 6.5 Albumin 3.4 Globulin 3.1 Albumin/Globulin Ratio 1.1 Urine Color Yellow Urine Appearance Hazy A Urine pH 5.0 Ur Specific [place] 1.016 Urine Protein Negative Urine Glucose (UA) Negative Urine Ketones Negative Urine Occult Blood Negative Urine Nitrate Negative Urine Bilirubin Negative Urine Urobilinogen Negative Ur Leukocyte Esterase 75 A Urine RBC 2 Urine WBC 6 H Ur Squamous Epith Cells < 1 Urine Bacteria None Hyaline Casts 4 H Urine Mucus Few A Ur Culture Indicated? No A/P Narrative A/P Narrative: Assessment: 81 year old female with a complex medical history including recurrent C diff colitis admitted for diarrhea associated with fecal incontinence. CT abdomen/pelvis showed moderate colitis and C-diff GDH/Toxin A+B was indeterminant. #Probable severe Clostridium difficile colitis #Acute kidney injury-probably prerenal #Type 2 diabetes mellitus #Atrial fibrillation #Hypothyroidism #Depression #BMI 49 #Wheelchair bound status #Recurrent hospitalizations Plan -Vancomycin 125 mg PO QID -IV fluid -C diff PCR if available for indeterminate GDH/Toxin A+B -Follow CBC and inpatient panel. -Monitor and replace electrolytes prn. -SSI-low for now. -Eliquis BID for atrial fibrillation. -Home medication reconciliation when daughter arrives with medication list, resume essential home meds. -Monitor stool output. -DVT ppx: on Eliquis -Code status: Full -Disposition: probably SNF, consider outpatient stool transplant for recurrent C diff colitis. Time Spent With Patient Time: Total time spent is greater than 50% in coordination of care (as documented) at patient's floor/unit and/or counseling patient:
[2021-06-13] MEDS: 0.9 % SODIUM CHLORIDE 10 ML SYRINGE IV SCH (22:00)
[2021-06-13] MEDS ORDERED: ONDANSETRON 4 MG/2 ML VIAL IV PRN (22:01)
[2021-06-13] MEDS ORDERED: DEXTROSE 31 GM ORAL.SUSP PO PRN (22:01)
[2021-06-13] MEDS ORDERED: DEXTROSE 50% 50 ML VIAL IV PRN (22:01)
[2021-06-14] MEDS: 0.9 % SODIUM CHLORIDE 10 ML SYRINGE IV SCH ×3 (05:03→23:26)
[2021-06-14 07:09] LABS: Basophils # (Auto) 0.07 K/mcL (0.00-0.30); Basophils % (Auto) 0.5 % (0.0-2.0); Eosinophils # (Auto) 0.35 K/mcL (0.00-0.70); Eosinophils % (Auto) 2.3 % (0.0-7.0); Hematocrit 31.3 % (34.1-44.9); Hemoglobin 9.8 g/dL (11.2-15.7); Lymphocytes # (Auto) 0.91 K/mcL (1.50-4.80); Lymphocytes % (Auto) 5.9 % (15.5-49.0); Mean Corpuscular HGB Conc 31.3 g/dL (31.0-36.0); Mean Platelet Volume 8.9 fL (7.4-10.4); Monocytes # (Auto) 1.24 K/mcL (0.10-0.90); Monocytes % (Auto) 8.1 % (1.0-12.0); Neutrophils % (Auto) 83.2 % (38.0-78.0); Platelet Count 261 K/mcL (140-440); RBC 3.64 M/mcL (3.59-5.38); Red Cell Distribution Width 17.2 % (11.5-14.5); WBC 15.3 K/mcL (4.5-11.0)
[2021-06-14] MEDS: INSULIN LISPRO 1 UNIT/0.01 ML UNIT SQ SCH ×4 (07:41→20:49)
[2021-06-14 08:18] LABS: ALT/SGPT < 5 U/L (<40); AST/SGOT 8 U/L (<32); Albumin 3.1 gm/dL (3.2-5.2); Albumin/Globulin Ratio 0.9 (1.0-2.3); Alkaline Phosphatase 58 U/L (39-117); Bilirubin,Direct < 0.2 mg/dL (0-0.3); Bilirubin,Total 0.2 mg/dL (0.1-1.0); Blood Urea Nitrogen 27 mg/dL (8-23); Calcium 8.8 mg/dL (8.6-10.4); Carbon Dioxide 19 mmol/L (22-30); Chloride 101 mmol/L (96-108); Globulin 3.3 gm/dL (2.2-3.7); Glomerular Filtration Rate 48; Glucose 173 mg/dL (70-105); Lactate Dehydrogenase 101 U/L (135-225); Phosphorous 3.9 mg/dL (2.5-4.5); Triglycerides 117 mg/dL (<150); Uric Acid 8.3 mg/dL (2.5-8.0)
[2021-06-14] MEDS ORDERED: MAGNESIUM SULFATE 2 GM/50 ML BAG IV ONE (09:09)
[2021-06-14] MEDS ORDERED: 0.9 % SODIUM CHLORIDE 1,000 ML IV SCH (09:15)
[2021-06-14] MEDS ORDERED: hydrOXYzine 25 MG TABLET PO PRN (09:18)
[2021-06-14] MEDS: APIXABAN 5 MG TABLET PO SCH ×2 (09:42→20:41)
[2021-06-14] MEDS: VANCOMYCIN ORAL SOL 1,000 MG/10 ML BOTTLE PO SCH ×4 (09:42→20:41)
[2021-06-14] MEDS: oxyCODONE/APAP 10/325MG TABLET PO PRN (11:37)
--- NOTE | 2021-06-14 11:50 | Internal Med Progress Note ---
SUBJECTIVE Subjective Patient information: Note initiated : 06/14/21 at 11:47 am Service Date, if different from initiated Date: [] Patient: Ruby Colvin 81 y/o F admitted on 06/13/21 for UTI, decreased urine output. Chief Complaint: [] Interval history: Ms. Colvin is a 81 year old female with a complex medical history who is wheelchair bound and recently has been hospitalized multiple times and spent time at multiple long-term facilities. She says she was discharged from a long-term facility ([facility]) on 06/08/21 to stay with her daughter. At [facility] she was treated for Clostridium difficile colitis, she says she completed treatment prior to discharge. On the day of discharge she once again developed diarrhea 15 to 20 times a day associated with crampy abdominal pain. She was incontinent of stool and urine and brought to the ED with her daughter. The patient has been extremely tired as well requiring extra assistance by family members. The patient denies chills or fevers. In the ED the patient had leukocytosis and an elevated creatine of 1.5. Stool C diff GDH/Toxin A+B panel was reported as intermediate. CT abdomen/pelvis without contrast was most remarkable for moderate colitis involving the descending and sigmoid colon. 06/14: FMS placed for diarrhea, repeat C diff GDH/Toxin A+B positive, continues oral vancomycin QID, will check abdominal xray tomorrow. AMOS resolved with IV fluid, WBC modestly improved. Will continue IV fluid today. Review of systems: abdominal discomfort about the same, no fever, still having diarrhea Physical exam Head: Atraumatic, normal inspection. Eyes: normal appearance, no scleral icterus. Neck: full ROM Respiratory: no respiratory distress. Cardiovascular: normal rate and rhythm, S1, S2. GI/Abdominal: obesity distended, soft, tenderness RLQ, mild rebound tenderness, no guarding, FMS in place . Extremities: full range of motion, nontender. Neurological: CN II-XII intact, lower extremity weakness bilaterally, intact sensation. Psychiatric: normal mood. Skin: warm, normal color Constitutional Vitals: Vital Signs Temp Pulse Resp BP Pulse Ox 98.1 F 98 H 24 H 112/48 96 06/14/21 08:00 06/14/21 08:00 06/14/21 08:00 06/14/21 08:00 06/14/21 08:00 Period Temp Pulse Resp BP Sys/Ware Pulse Ox Last 24 Hr 98.1 F-98.7 F 75-105 16-24 103-138/46-112 91-98 Intake and Output 06/13/21 06/14/21 06/14/21 21:59 05:59 13:59 Intake Total 1000 1320 300 Output Total 75 2 Balance 1000 1245 298 Weight 111.221 kg Intake & Output: Intake & Output 06/13/21 06/14/21 06/14/21 21:59 05:59 13:59 Intake Total 1000 1320 300 Output Total 75 2 Balance 1000 1245 298 Weight 111.221 kg Intake: IV 1000 1000 Sodium Chloride 0.9% 1,000 ml @ 1000 1000 Wide Open IV BOLUS ONE Rx#: [id number] Oral 320 300 Output: # of times incontinent of urine 2 Stool 75 Other: Meal Nourishment/Supplement Breakfast Percent of Meal Consumed 100% 100% Feeding Ability Independent Assist with Tray Set Up Urine Appearance Clear Urine Color Straw Stool Size Small Small Moderate Stool Color Green Green Jaden Colored Stool Consistency Liquid Liquid Soft Liquid # Voids 1 # Bowel Movements 1 1 # of times incontinent of 2 Bowels OBJ DATA Labs CBC & Chem 7: 06/14/21 05:35 06/14/21 05:35 Labs: Abnormal Lab Results 06/14/21 06/14/21 06/13/21 05:35 05:35 14:57 WBC 15.3 H RBC Hgb 9.8 L Hct 31.3 L POC Hct RDW 17.2 H Neut % (Auto) 83.2 H Lymph % (Auto) 5.9 L Lymph # (Auto) 0.91 L [place] # (Auto) 1.24 H Absolute Neutrophils 12.73 H POC Sodium Sodium Carbon Dioxide 19 L POC Total CO2 POC BUN BUN 27 H Creatinine POC Creatinine Glucose 173 H POC Glucose Uric Acid 8.3 H Magnesium 1.5 L Lactate Dehydrogenase 101 L Albumin 3.1 L Albumin/Globulin Ratio 0.9 L Urine Appearance Hazy A Ur Leukocyte Esterase 75 A Urine WBC 6 H Hyaline Casts 4 H Urine Mucus Few A 06/13/21 06/13/21 14:53 14:53 WBC 16.3 H RBC 3.50 L Hgb 9.7 L Hct 29.6 L POC Hct 30 L RDW 17.1 H Neut % (Auto) 83.7 H Lymph % (Auto) 5.0 L Lymph # (Auto) 0.82 L [place] # (Auto) 1.37 H Absolute Neutrophils 13.67 H POC Sodium 132 L Sodium 130 L Carbon Dioxide 20 L POC Total CO2 21 L POC BUN 32 H BUN 32 H Creatinine 1.5 H POC Creatinine 1.5 H Glucose 109 H POC Glucose 113 H Uric Acid Magnesium Lactate Dehydrogenase Albumin Albumin/Globulin Ratio Urine Appearance Ur Leukocyte Esterase Urine WBC Hyaline Casts Urine Mucus Meds: Medications Acetaminophen (Acetaminophen 325 Mg Tablet) 650 mg PO Q6HP PRN; Protocol PRN Reason: Per Pain Protocol/Fever > 101 Amiodarone HCl (Amiodarone Hcl 200 Mg Tablet) 200 mg PO QAC [facility] Apixaban (Apixaban 5 Mg Tablet) 5 mg PO BID [facility] Last Admin: 06/14/21 09:42 Dose: 5 mg Documented by: Aspirin (Aspirin 81 Mg Tab.Chew) 81 mg PO DAILY@1800 [facility] Atorvastatin Calcium (Atorvastatin 40 Mg Tablet) 40 mg PO QAM [facility] Dextrose (Dextrose 50% 50 Ml Vial) 0 ml IV UD PRN PRN Reason: Hypoglycemia Diagnostic Test (Pha) (Accu-Chek 1 Each Strip) 1 each FS [facility] Last Admin: 06/14/21 11:24 Dose: 1 each Documented by: Duloxetine HCl (Duloxetine 30 Mg Capsule) 60 mg PO BID [facility] Glucose (Dextrose 31 Gm Oral.Susp) 15 gm PO PRN PRN PRN Reason: Hypoglycemia Hydroxyzine HCl (Hydroxyzine 25 Mg Tablet) 50 mg PO BIDP PRN PRN Reason: Anxiety Sodium Chloride (Sodium Chloride 0.9%) 1,000 mls @ 75 mls/hr IV .[id number] [facility] Stop: 06/14/21 19:14 Last Admin: 06/14/21 09:45 Dose: 75 mls/hr Documented by: Insulin Human Lispro (Insulin Lispro 1 Unit/0.01 Ml Unit) 0 unit SQ [facility]; Protocol Last Admin: 06/14/21 11:29 Dose: 3 units Documented by: Lamotrigine (Lamotrigine 100 Mg Tablet) 150 mg PO DAILY [facility] Levothyroxine Sodium (Levothyroxine Sodium 112 Mcg Tablet) 112 mcg PO ACB [facility] Metoprolol Tartrate (Metoprolol Tartrate 25 Mg Tablet) 25 mg PO QDAY [facility] Ondansetron HCl (Ondansetron 4 Mg/2 Ml Vial) 4 mg IV Q6HP PRN PRN Reason: Nausea And Vomiting Oxybutynin Chloride (Oxybutynin Chloride 5 Mg Tab.Xl.24h) 10 mg PO DAILY [facility] Oxycodone/Acetaminophen (Oxycodone/Apap 10/325mg Tablet) 1 tab PO QIDP PRN; Protocol PRN Reason: Pain Last Admin: 06/14/21 11:37 Dose: 1 tab Documented by: Pantoprazole Sodium (Pantoprazole 40 Mg Tablet) 40 mg PO ACB [facility] Sodium Chloride (0.9 % Sodium Chloride 10 Ml Syringe) 10 ml IV Q8 [facility] Last Admin: 06/14/21 05:03 Dose: 10 ml Documented by: Trazodone HCl (Trazodone Hcl 50 Mg Tablet) 50 mg PO HSP PRN PRN Reason: Anxiety Vancomycin HCl (Vancomycin Oral Lucía 1,000 Mg/10 Ml Bottle) 125 mg PO QID [facility]; Protocol Last Admin: 06/14/21 09:42 Dose: 125 mg Documented by: A/P Narrative A/P Narrative: Assessment: 81 year old female with a complex medical history i ncluding recurrent C diff colitis admitted for diarrhea associated with fecal incontinence. CT abdomen/pelvis showed moderate colitis and C-diff GDH/Toxin A+B was indeterminant. #Severe recurrent Clostridium difficile colitis #Resolved acute kidney injury #Type 2 diabetes mellitus #Atrial fibrillation #Hypothyroidism #Depression #GERD #Overactive bladder #BMI 49 #Wheelchair bound status #Recurrent hospitalizations Plan -Vancomycin 125 mg PO QID -IV fluid today -Abdominal xray tomorrow. -Follow CBC and inpatient panel. -Monitor and replace electrolytes prn. -SSI-low for now. -Eliquis BID for atrial fibrillation. -Continue essential home medications. -Monitor stool output, has FMS. -DVT ppx: on Eliquis -Code status: Full -Disposition: probably SNF, consider outpatient stool transplant for recurrent C diff colitis. Time Spent With Patient Time: Total time spent is greater than 50% in coordination of care (as documented) at patient's floor/unit and/or counseling patient: QUALITY VTE Deep Vein Thrombosis/Pulmonary Embolism Present on Admission: No
[2021-06-14] MEDS: ASPIRIN 81 MG TAB.CHEW PO SCH (17:25)
[2021-06-14] MEDS: DULoxetine 30 MG CAPSULE PO SCH (20:41)
[2021-06-14] MEDS ORDERED: traZODone HCL 50 MG TABLET PO PRN (21:00)
[2021-06-15] MEDS: 0.9 % SODIUM CHLORIDE 10 ML SYRINGE IV SCH ×3 (04:32→20:49)
[2021-06-15 06:37] LABS: Basophils # (Auto) 0.08 K/mcL (0.00-0.30); Basophils % (Auto) 0.8 % (0.0-2.0); Eosinophils # (Auto) 0.58 K/mcL (0.00-0.70); Eosinophils % (Auto) 5.5 % (0.0-7.0); Hematocrit 29.3 % (34.1-44.9); Hemoglobin 9.2 g/dL (11.2-15.7); Lymphocytes # (Auto) 0.91 K/mcL (1.50-4.80); Lymphocytes % (Auto) 8.7 % (15.5-49.0); Mean Cell Volume 87.5 fL (80.0-100.0); Mean Corpuscular HGB Conc 31.4 g/dL (31.0-36.0); Mean Platelet Volume 8.5 fL (7.4-10.4); Monocytes % (Auto) 8.6 % (1.0-12.0); Neutrophils % (Auto) 76.4 % (38.0-78.0); Platelet Count 253 K/mcL (140-440); RBC 3.35 M/mcL (3.59-5.38); WBC 10.5 K/mcL (4.5-11.0)
[2021-06-15 07:08] LABS: ALT/SGPT < 5 U/L (<40); AST/SGOT 7 U/L (<32); Albumin 2.9 gm/dL (3.2-5.2); Albumin/Globulin Ratio 0.9 (1.0-2.3); Alkaline Phosphatase 60 U/L (39-117); Bilirubin,Direct < 0.2 mg/dL (0-0.3); Bilirubin,Total 0.2 mg/dL (0.1-1.0); Blood Urea Nitrogen 19 mg/dL (8-23); Carbon Dioxide 19 mmol/L (22-30); Chloride 103 mmol/L (96-108); Globulin 3.3 gm/dL (2.2-3.7); Glomerular Filtration Rate 53; Glucose 152 mg/dL (70-105); Lactate Dehydrogenase 86 U/L (135-225); Triglycerides 102 mg/dL (<150); Uric Acid 7.6 mg/dL (2.5-8.0)
[2021-06-15] MEDS: LEVOTHYROXINE SODIUM 112 MCG TABLET PO SCH (08:10)
[2021-06-15] MEDS: PANTOPRAZOLE 40 MG TABLET PO SCH (08:10)
[2021-06-15] MEDS: INSULIN LISPRO 1 UNIT/0.01 ML UNIT SQ SCH ×4 (08:11→20:48)
--- NOTE | 2021-06-15 08:52 | XRay Report ---
HISTORY: Follow-up C. Difficile colitis FINDINGS: Three supine images were obtained. A moderate amount of air is present in nondilated large and small intestine. There is effacement of the mucosal folds in a loop of sigmoid in the right upper pelvis. This corresponds with the inflammatory changes seen on the recent CT done on 06/13/21. This segment is normal in caliber. No gross free intra-abdominal air is seen on this supine image. Patient has had spinal fusion at L4-5. There are numerous surgical clips in the epigastrium and phleboliths are present in the pelvis. IMPRESSION: Persistent colitis in the sigmoid colon and no evidence of bowel obstruction Interpreted and Authenticated by: Aldo Colvin 06/15/21
--- NOTE | 2021-06-15 09:03 | XRay Report ---
HISTORY: Hypoxia, atrial fibrillation, prior right nephrectomy, COPD, diminished urine output FINDINGS: The mild generalized alveolar infiltrates seen throughout the left lung on 06/13/21 has nearly resolved. There are thin vertically oriented bands of discoid atelectasis medially at the left lung base. The heart has diminished in size. There is stable elevation of the right diaphragm with persistent consolidation medially in the right lower lobe. This is probably atelectasis. Superimposed pneumonia cannot be excluded. Right upper lobe is clear. There is mild pleural thickening in the minor fissure. IMPRESSION: Resolved alveolar opacity in the left lung which may have been due to inflammation or pulmonary vascular congestion. Stable atelectasis/pneumonia in the right lower lobe Interpreted and Authenticated by: Aldo Colvin 06/15/21
[2021-06-15] MEDS: APIXABAN 5 MG TABLET PO SCH ×2 (09:46→20:49)
[2021-06-15] MEDS: lamoTRIgine 100 MG TABLET PO SCH (09:46)
[2021-06-15] MEDS: DULoxetine 30 MG CAPSULE PO SCH ×2 (09:46→20:49)
[2021-06-15] MEDS: OXYBUTYNIN CHLORIDE 5 MG TAB.XL.24H PO SCH (09:46)
[2021-06-15] MEDS: ATORVASTATIN 40 MG TABLET PO SCH (09:46)
[2021-06-15] MEDS: METOPROLOL TARTRATE 25 MG TABLET PO SCH (09:46)
[2021-06-15] MEDS: VANCOMYCIN ORAL SOL 1,000 MG/10 ML BOTTLE PO SCH ×5 (09:48→20:50)
[2021-06-15] MEDS: AMIODARONE HCL 200 MG TABLET PO SCH (09:55)
--- NOTE | 2021-06-15 10:50 | Internal Med Progress Note ---
SUBJECTIVE Subjective Patient information: Note initiated : 06/15/21 at 10:50 am Service Date, if different from initiated Date: [] Patient: Ruby Colvin 81 y/o F admitted on 06/13/21 for UTI, decreased urine output. Chief Complaint: [] Interval history: Ms. Colvin is a 81 year old female with a complex medical history who is wheelchair bound and recently has been hospitalized multiple times and spent time at multiple detention facilities. She says she was discharged from a detention facility ([facility]) on 06/08/21 to stay with her daughter. At [facility] she was treated for Clostridium difficile colitis, she says she completed treatment prior to discharge. On the day of discharge she once again developed diarrhea 15 to 20 times a day associated with crampy abdominal pain. She was incontinent of stool and urine and brought to the ED with her daughter. The patient has been extremely tired as well requiring extra assistance by family members. The patient denies chills or fevers. In the ED the patient had leukocytosis and an elevated creatine of 1.5. Stool C diff GDH/Toxin A+B panel was reported as intermediate. CT abdomen/pelvis without contrast was most remarkable for moderate colitis involving the descending and sigmoid colon. 06/14: FMS placed for diarrhea, repeat C diff GDH/Toxin A+B positive, continues oral vancomycin QID, will check abdominal xray tomorrow. AMOS resolved with IV fluid, WBC modestly improved. Will continue IV fluid today. 06/15: Improving clinically, abdominal tenderness improved, leukocytosis resolved and tolerating diet. FMS could probably be removed soon. Review of systems: improved appetite, abdominal pain improved. Physical exam Head: Atraumatic, normal inspection. Eyes: normal appearance, no scleral icterus. Neck: full ROM Respiratory: no respiratory distress. Cardiovascular: normal rate and rhythm, S1, S2. GI/Abdominal: obesity distended, soft, tenderness RLQ, no rebound tenderness, no guarding, FMS in place . Extremities: full range of motion, nontender. Neurological: CN II-XII intact, lower extremity weakness bilaterally, intact sensation. Psychiatric: normal mood. Skin: warm, normal color Constitutional Vitals: Vital Signs Temp Pulse Resp BP Pulse Ox 97.6 F 85 22 147/72 100 06/15/21 07:28 06/15/21 07:28 06/15/21 07:28 06/15/21 07:28 06/15/21 07:28 Period Temp Pulse Resp BP Sys/Ware Pulse Ox Last 24 Hr 97.1 F-98.5 F 82-95 14-22 108-147/44-72 95-100 Intake and Output 06/14/21 06/15/21 06/15/21 21:59 05:59 13:59 Intake Total 920 1000 700 Output Total 250 950 750 Balance 670 50 -50 Weight 114.05 kg Intake & Output: Intake & Output 06/14/21 06/15/21 06/15/21 21:59 05:59 13:59 Intake Total 920 1000 700 Output Total 250 950 750 Balance 670 50 -50 Weight 114.05 kg Intake: IV 1000 Sodium Chloride 0.9% 1,000 ml @ 1000 75 mls/hr IV .[id number] [facility] Rx#: [id number] Oral 920 700 Output: Void Amount 250 950 750 Other: Meal Breakfast Percent of Meal Consumed 100% Feeding Ability Independent Urine Appearance Clear Clear Clear Urine Color Dark Yellow Bright Yellow Bright Yellow Urine Odor Normal OBJ DATA Labs CBC & Chem 7: 06/15/21 05:22 06/15/21 05:22 Labs: Abnormal Lab Results 06/15/21 06/15/21 06/14/21 05:22 05:22 05:35 WBC RBC 3.35 L Hgb 9.2 L Hct 29.3 L POC Hct RDW 17.0 H Neut % (Auto) Lymph % (Auto) 8.7 L Lymph # (Auto) 0.91 L [place] # (Auto) Absolute Neutrophils 8.05 H POC Sodium Sodium Carbon Dioxide 19 L 19 L POC Total CO2 POC BUN BUN 27 H Creatinine POC Creatinine Glucose 152 H 173 H POC Glucose Uric Acid 8.3 H Magnesium 1.5 L Lactate Dehydrogenase 86 L 101 L Albumin 2.9 L 3.1 L Albumin/Globulin Ratio 0.9 L 0.9 L Urine Appearance Ur Leukocyte Esterase Urine WBC Hyaline Casts Urine Mucus 06/14/21 06/13/21 06/13/21 05:35 14:57 14:53 WBC 15.3 H RBC Hgb 9.8 L Hct 31.3 L POC Hct 30 L RDW 17.2 H Neut % (Auto) 83.2 H Lymph % (Auto) 5.9 L Lymph # (Auto) 0.91 L [place] # (Auto) 1.24 H Absolute Neutrophils 12.73 H POC Sodium 132 L Sodium 130 L Carbon Dioxide 20 L POC Total CO2 21 L POC BUN 32 H BUN 32 H Creatinine 1.5 H POC Creatinine 1.5 H Glucose 109 H POC Glucose 113 H Uric Acid Magnesium Lactate Dehydrogenase Albumin Albumin/Globulin Ratio Urine Appearance Hazy A Ur Leukocyte Esterase 75 A Urine WBC 6 H Hyaline Casts 4 H Urine Mucus Few A 06/13/21 14:53 WBC 16.3 H RBC 3.50 L Hgb 9.7 L Hct 29.6 L POC Hct RDW 17.1 H Neut % (Auto) 83.7 H Lymph % (Auto) 5.0 L Lymph # (Auto) 0.82 L [place] # (Auto) 1.37 H Absolute Neutrophils 13.67 H POC Sodium Sodium Carbon Dioxide POC Total CO2 POC BUN BUN Creatinine POC Creatinine Glucose POC Glucose Uric Acid Magnesium Lactate Dehydrogenase Albumin Albumin/Globulin Ratio Urine Appearance Ur Leukocyte Esterase Urine WBC Hyaline Casts Urine Mucus Meds: Medications Acetaminophen (Acetaminophen 325 Mg Tablet) 650 mg PO Q6HP PRN; Protocol PRN Reason: Per Pain Protocol/Fever > 101 Amiodarone HCl (Amiodarone Hcl 200 Mg Tablet) 200 mg PO [facility] Last Admin: 06/15/21 09:55 Dose: 200 mg Documented by: Apixaban (Apixaban 5 Mg Tablet) 5 mg PO BID [facility] Last Admin: 06/15/21 09:46 Dose: 5 mg Documented by: Aspirin (Aspirin 81 Mg Tab.Chew) 81 mg PO DAILY@1800 [facility] Last Admin: 06/14/21 17:25 Dose: 81 mg Documented by: Atorvastatin Calcium (Atorvastatin 40 Mg Tablet) 40 mg PO [facility] Last Admin: 06/15/21 09:46 Dose: 40 mg Documented by: Dextrose (Dextrose 50% 50 Ml Vial) 0 ml IV UD PRN PRN Reason: Hypoglycemia Diagnostic Test (Pha) (Accu-Chek 1 Each Strip) 1 each FS [facility] Last Admin: 06/15/21 07:42 Dose: 1 each Documented by: Duloxetine HCl (Duloxetine 30 Mg Capsule) 60 mg PO BID [facility] Last Admin: 06/15/21 09:46 Dose: 60 mg Documented by: Glucose (Dextrose 31 Gm Oral.Susp) 15 gm PO PRN PRN PRN Reason: Hypoglycemia Hydroxyzine HCl (Hydroxyzine 25 Mg Tablet) 50 mg PO BIDP PRN PRN Reason: Anxiety Insulin Human Lispro (Insulin Lispro 1 Unit/0.01 Ml Unit) 0 unit SQ ACHS [facility]; Protocol Last Admin: 06/15/21 08:11 Dose: 1 units Documented by: Lamotrigine (Lamotrigine 100 Mg Tablet) 150 mg PO DAILY [facility] Last Admin: 06/15/21 09:46 Dose: 150 mg Documented by: Levothyroxine Sodium (Levothyroxine Sodium 112 Mcg Tablet) 112 mcg PO ACB [facility] Last Admin: 06/15/21 08:10 Dose: 112 mcg Documented by: Metoprolol Tartrate (Metoprolol Tartrate 25 Mg Tablet) 25 mg PO QDAY [facility] Last Admin: 06/15/21 09:46 Dose: 25 mg Documented by: Ondansetron HCl (Ondansetron 4 Mg/2 Ml Vial) 4 mg IV Q6HP PRN PRN Reason: Nausea And Vomiting Oxybutynin Chloride (Oxybutynin Chloride 5 Mg Tab.Xl.24h) 10 mg PO DAILY [facility] Last Admin: 06/15/21 09:46 Dose: 10 mg Documented by: Oxycodone/Acetaminophen (Oxycodone/Apap 10/325mg Tablet) 1 tab PO QIDP PRN; Protocol PRN Reason: Pain Last Admin: 06/14/21 11:37 Dose: 1 tab Documented by: Pantoprazole Sodium (Pantoprazole 40 Mg Tablet) 40 mg PO ACB [facility] Last Admin: 06/15/21 08:10 Dose: 40 mg Documented by: Sodium Chloride (0.9 % Sodium Chloride 10 Ml Syringe) 10 ml IV Q8 [facility] Last Admin: 06/15/21 04:32 Dose: 10 ml Documented by: Trazodone HCl (Trazodone Hcl 50 Mg Tablet) 50 mg PO HSP PRN PRN Reason: Anxiety Vancomycin HCl (Vancomycin Oral Lucía 1,000 Mg/10 Ml Bottle) 125 mg PO QID [facility]; Protocol Last Admin: 06/15/21 09:48 Dose: 125 mg Documented by: A/P Narrative A/P Narrative: Assessment: 81 year old female with a complex medical history including recurrent C diff colitis admitted for diarrhea associated with fecal incontinence. CT abdomen/pelvis showed moderate colitis and C-diff GDH/Toxin A+B was indeterminant. #Severe recurrent Clostridium difficile colitis #Resolved acute kidney injury #Type 2 diabetes mellitus #Atrial fibrillation #Hypothyroidism #Depression #GERD #Overactive bladder #BMI 49 #Wheelchair bound status #Recurrent hospitalizations Plan -Vancomycin 125 mg PO QID -Follow CBC and inpatient panel. -Monitor and replace electrolytes prn. -SSI-low for now. -Continue essential home medications. -Monitor stool output, has FMS. -DVT ppx: on Eliquis -Code status: Full -Disposition: probably SNF with Vancomycin taper treatment course, consider outpatient stool transplant for recurrent C diff colitis. Time Spent With Patient Time: Total time spent is greater than 50% in coordination of care (as documented) at patient's floor/unit and/or counseling patient: QUALITY VTE Deep Vein Thrombosis/Pulmonary Embolism Present on Admission: No
[2021-06-15] MEDS ORDERED: FIDAXOMICIN 200 MG TABLET PO SCH (13:15)
--- NOTE | 2021-06-15 13:20 | Internal Med Progress Note ---
SUBJECTIVE Subjective Patient information: Note initiated : 06/15/21 at 1:14 pm Service Date, if different from initiated Date: [] Patient: Ruby Colvin 81 y/o F admitted on 06/13/21 for UTI, decreased urine output. Chief Complaint: [] Interval history: Ms. Colvin is a 81 year old female with a complex medical history who is wheelchair bound and recently has been hospitalized multiple times and spent time at multiple group home facilities. She says she was discharged from a group home facility ([facility]) on 06/08/21 to stay with her daughter. At [facility] she was treated for Clostridium difficile colitis, she says she completed treatment prior to discharge. On the day of discharge she once again developed diarrhea 15 to 20 times a day associated with crampy abdominal pain. She was incontinent of stool and urine and brought to the ED with her daughter. The patient has been extremely tired as well requiring extra assistance by family members. The patient denies chills or fevers. In the ED the patient had leukocytosis and an elevated creatine of 1.5. Stool C diff GDH/Toxin A+B panel was reported as intermediate. CT abdomen/pelvis without contrast was most remarkable for moderate colitis involving the descending and sigmoid colon. 06/14: FMS placed for diarrhea, repeat C diff GDH/Toxin A+B positive, continues oral vancomycin QID, will check abdominal xray tomorrow. AMOS resolved with IV fluid, WBC modestly improved. Will continue IV fluid today. 06/15: Improving clinically, abdominal tenderness improved, leukocytosis resolved and tolerating diet. FMS could probably be removed soon. 06/16 Constitutional Vitals: Vital Signs Temp Pulse Resp BP Pulse Ox 98.6 F 86 20 137/73 97 06/15/21 12:00 06/15/21 12:00 06/15/21 12:00 06/15/21 12:00 06/15/21 12:00 Period Temp Pulse Resp BP Sys/Ware Pulse Ox Last 24 Hr 97.1 F-98.6 F 82-95 14-22 111-147/44-73 96-100 Intake and Output 06/14/21 06/15/21 06/15/21 21:59 05:59 13:59 Intake Total 920 1000 700 Output Total 250 950 850 Balance 670 50 -150 Weight 114.05 kg Intake & Output: Intake & Output 06/14/21 06/15/21 06/15/21 21:59 05:59 13:59 Intake Total 920 1000 700 Output Total 250 950 850 Balance 670 50 -150 Weight 114.05 kg Intake: IV 1000 Sodium Chloride 0.9% 1,000 ml @ 1000 75 mls/hr IV .[id number] [facility] Rx#: [id number] Oral 920 700 Output: Void Amount 250 950 850 Other: Meal Breakfast Percent of Meal Consumed 100% Feeding Ability Independent Urine Appearance Clear Clear Clear Urine Color Dark Yellow Bright Yellow Bright Yellow Urine Odor Normal Exam: General: Alert, Awake, No acute Distress, obese Eyes/N/T: EOMI, Head/Neck: neck supple, CV: RRR, No murmurs, Pulm: Clear b/l, no wheezing/rhonchi/rales Abd: soft, tender RLQ, +BS x4 Ext: no clubbing/cyanosis/edema Neuro: Alert, no focal deficits, moves all extremities, Skin: warm/dry OBJ DATA Labs CBC & Chem 7: 06/15/21 05:22 06/15/21 05:22 Labs: Abnormal Lab Results 06/15/21 06/15/21 06/14/21 05:22 05:22 05:35 WBC RBC 3.35 L Hgb 9.2 L Hct 29.3 L POC Hct RDW 17.0 H Neut % (Auto) Lymph % (Auto) 8.7 L Lymph # (Auto) 0.91 L [place] # (Auto) Absolute Neutrophils 8.05 H POC Sodium Sodium Carbon Dioxide 19 L 19 L POC Total CO2 POC BUN BUN 27 H Creatinine POC Creatinine Glucose 152 H 173 H POC Glucose Uric Acid 8.3 H Magnesium 1.5 L Lactate Dehydrogenase 86 L 101 L Albumin 2.9 L 3.1 L Albumin/Globulin Ratio 0.9 L 0.9 L Urine Appearance Ur Leukocyte Esterase Urine WBC Hyaline Casts Urine Mucus 06/14/21 06/13/21 06/13/21 05:35 14:57 14:53 WBC 15.3 H RBC Hgb 9.8 L Hct 31.3 L POC Hct 30 L RDW 17.2 H Neut % (Auto) 83.2 H Lymph % (Auto) 5.9 L Lymph # (Auto) 0.91 L [place] # (Auto) 1.24 H Absolute Neutrophils 12.73 H POC Sodium 132 L Sodium 130 L Carbon Dioxide 20 L POC Total CO2 21 L POC BUN 32 H BUN 32 H Creatinine 1.5 H POC Creatinine 1.5 H Glucose 109 H POC Glucose 113 H Uric Acid Magnesium Lactate Dehydrogenase Albumin Albumin/Globulin Ratio Urine Appearance Hazy A Ur Leukocyte Esterase 75 A Urine WBC 6 H Hyaline Casts 4 H Urine Mucus Few A 06/13/21 14:53 WBC 16.3 H RBC 3.50 L Hgb 9.7 L Hct 29.6 L POC Hct RDW 17.1 H Neut % (Auto) 83.7 H Lymph % (Auto) 5.0 L Lymph # (Auto) 0.82 L [place] # (Auto) 1.37 H Absolute Neutrophils 13.67 H POC Sodium Sodium Carbon Dioxide POC Total CO2 POC BUN BUN Creatinine POC Creatinine Glucose POC Glucose Uric Acid Magnesium Lactate Dehydrogenase Albumin Albumin/Globulin Ratio Urine Appearance Ur Leukocyte Esterase Urine WBC Hyaline Casts Urine Mucus Meds: Medications Acetaminophen (Acetaminophen 325 Mg Tablet) 650 mg PO Q6HP PRN; Protocol PRN Reason: Per Pain Protocol/Fever > 101 Amiodarone HCl (Amiodarone Hcl 200 Mg Tablet) 200 mg PO [facility] Last Admin: 06/15/21 09:55 Dose: 200 mg Documented by: Apixaban (Apixaban 5 Mg Tablet) 5 mg PO BID [facility] Last Admin: 06/15/21 09:46 Dose: 5 mg Documented by: Aspirin (Aspirin 81 Mg Tab.Chew) 81 mg PO DAILY@1800 [facility] Last Admin: 06/14/21 17:25 Dose: 81 mg Documented by: Atorvastatin Calcium (Atorvastatin 40 Mg Tablet) 40 mg PO [facility] Last Admin: 06/15/21 09:46 Dose: 40 mg Documented by: Dextrose (Dextrose 50% 50 Ml Vial) 0 ml IV UD PRN PRN Reason: Hypoglycemia Diagnostic Test (Pha) (Accu-Chek 1 Each Strip) 1 each FS [facility] Last Admin: 06/15/21 11:10 Dose: 1 each Documented by: Duloxetine HCl (Duloxetine 30 Mg Capsule) 60 mg PO BID [facility] Last Admin: 06/15/21 09:46 Dose: 60 mg Documented by: Glucose (Dextrose 31 Gm Oral.Susp) 15 gm PO PRN PRN PRN Reason: Hypoglycemia Hydroxyzine HCl (Hydroxyzine 25 Mg Tablet) 50 mg PO BIDP PRN PRN Reason: Anxiety Insulin Human Lispro (Insulin Lispro 1 Unit/0.01 Ml Unit) 0 unit SQ ACHS [facility]; Protocol Last Admin: 06/15/21 11:22 Dose: 3 units Documented by: Lamotrigine (Lamotrigine 100 Mg Tablet) 150 mg PO DAILY [facility] Last Admin: 06/15/21 09:46 Dose: 150 mg Documented by: Levothyroxine Sodium (Levothyroxine Sodium 112 Mcg Tablet) 112 mcg PO ACB [facility] Last Admin: 06/15/21 08:10 Dose: 112 mcg Documented by: Metoprolol Tartrate (Metoprolol Tartrate 25 Mg Tablet) 25 mg PO QDAY [facility] Last Admin: 06/15/21 09:46 Dose: 25 mg Documented by: Ondansetron HCl (Ondansetron 4 Mg/2 Ml Vial) 4 mg IV Q6HP PRN PRN Reason: Nausea And Vomiting Oxybutynin Chloride (Oxybutynin Chloride 5 Mg Tab.Xl.24h) 10 mg PO DAILY [facility] Last Admin: 06/15/21 09:46 Dose: 10 mg Documented by: Oxycodone/Acetaminophen (Oxycodone/Apap 10/325mg Tablet) 1 tab PO QIDP PRN; Protocol PRN Reason: Pain Last Admin: 06/14/21 11:37 Dose: 1 tab Documented by: Pantoprazole Sodium (Pantoprazole 40 Mg Tablet) 40 mg PO ACB [facility] Last Admin: 06/15/21 08:10 Dose: 40 mg Documented by: Sodium Chloride (0.9 % Sodium Chloride 10 Ml Syringe) 10 ml IV Q8 [facility] Last Admin: 06/15/21 04:32 Dose: 10 ml Documented by: Trazodone HCl (Trazodone Hcl 50 Mg Tablet) 50 mg PO HSP PRN PRN Reason: Anxiety A/P Narrative A/P Narrative: A: #Severe recurrent Clostridium difficile colitis: ?3rd episode #Resolved acute kidney injury #Type 2 diabetes mellitus #Atrial fibrillation #Hypothyroidism #Depression #GERD #Overactive bladder #Obesity: BMI 49 #Wheelchair bound status #Recurrent hospitalizations Plan: -Fidaxomicin [id number]; f/u with GI for possible fecal transplant -Follow CBC and inpatient panel. -Monitor and replace electrolytes prn. -SSI for now -Continue essential home medications. -Monitor stool output, has FMS. 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
--- NOTE | 2021-06-15 13:22 | Discharge Summary ---
Discharge Provider Provider Patient information: Note initiated : 06/15/21 at 1:20 pm Service Date, if different from initiated Date: [] Patient: Ruby Colvin 81 y/o F admitted on 06/13/21 for UTI, decreased urine output. Chief Complaint: [] Date of admission: 06/13/21 21:52 Discharge date: 06/17/21 Primary care physician: HALLIE Guillermo Consults: 06/13/21 Consult to Physician [CONS] Stat Comment: Consulting Provider: Bayron Hines Reason For Exam: Physician to Consult Discharge Meds Discharge Medications Home Medications aspirin 81 mg PO DAILY@1800 05/25/15 [History Confirmed 06/13/21 Last Taken 12/12/18] cholecalciferol (vitamin D3) 2,000 unit PO DAILY@1800 10/31/17 [History Confirmed 06/13/21 Last Taken 12/15/18] polyethylene glycol 3350 17 gram oral powder packet 17 g PO QHS PRN each 03/15 [History Confirmed 06/13/21 Last Taken Unknown] Attends discreet bladder control pads ultimate #8 #1 ea 02/29/20 [Rx Confirmed 06/13/21 Last Taken Unknown] levothyroxine 112 mcg tablet 112 mcg PO QDAY #90 tab 09/20/20 [Rx Confirmed 06/13/21 Last Taken 06/12/21 09:00] ferrous sulfate 325 mg (65 mg iron) tablet 325 mg PO QDAY #90 tab 09/26/20 [Rx Confirmed 06/13/21 Last Taken 06/12/21 10:00] blood sugar diagnostic #200 each 09/27/20 [Rx Confirmed 06/13/21 Last Taken Unknown] duloxetine 60 mg capsule,delayed release 60 mg PO BID #60 cap 11/28/20 [Rx Confirmed 06/13/21 Last Taken 06/12/21 21:00] sitagliptin 100 mg tablet 100 mg PO QDAY #90 tab 01/05/21 [Rx Confirmed 06/13/21 Last Taken 06/12/21 10:00] pantoprazole 40 mg PO DAILY 03/01/21 [History Confirmed 06/13/21 Last Taken 06/12/21 10:00] metoprolol tartrate 25 mg tablet 25 mg PO QDAY #30 tab 03/20/21 [Rx Confirmed 06/13/21 Last Taken 06/12/21 10:00] amiodarone 200 mg tablet 200 mg PO QDAY 04/13/21 [History Confirmed 06/13/21 Last Taken 06/12/21 10:00] trazodone 50 mg tablet 50 mg PO QHS PRN 04/13/21 [History Confirmed 06/13/21 Last Taken 06/12/21 22:00] Glucagon (HCl) Emergency Kit 1 mg SUBCUT Q15M PRN 05/12/21 [History Confirmed 06/13/21 Last Taken Unknown] apixaban 5 mg PO BID 05/12/21 [History Confirmed 06/13/21 Last Taken 06/12/21 21:00] fenofibrate nanocrystallized 48 mg PO QDAY 05/12/21 [History Confirmed 06/13/21 Last Taken 06/12/21 10:00] furosemide 20 mg PO QAM PRN 05/12/21 [History Confirmed 06/13/21 Last Taken Unknown] glimepiride 2 mg PO QDAY 05/12/21 [History Confirmed 06/13/21 Last Taken 06/12/21 21:00] hydroxyzine HCl 50 mg PO BID PRN 05/12/21 [History Confirmed 06/13/21 Last Taken 06/12/21 22:00] lamotrigine 150 mg PO QDAY 05/12/21 [History Confirmed 06/13/21 Last Taken 06/12/21 10:00] magnesium hydroxide [Milk of Magnesia] 30 ml PO QDAY PRN 05/12/21 [History Confirmed 06/13/21 Last Taken Unknown] simethicone 80 mg PO Q6H PRN 05/12/21 [History Confirmed 06/13/21 Last Taken Unknown] oxycodone-acetaminophen 10 mg-325 mg tablet 1 tab PO QID PRN #120 tab 06/06/21 [Rx Confirmed 06/13/21 Last Taken 06/12/21 21:00] oxybutynin chloride 10 mg tablet,extended release 24 hr 10 mg PO QDAY 06/08/21 [History Confirmed 06/13/21 Last Taken 06/12/21 10:00] sodium phosphates 19 gram-7 gram/118 mL enema 118 ml NE ONCE PRN 06/08/21 [History Confirmed 06/13/21 Last Taken Unknown] atorvastatin 40 mg PO QAM 06/13/21 [History Confirmed 06/13/21 Last Taken 06/12/21 10:00] fidaxomicin 200 mg PO BID #16 tab 06/16/21 [Rx Last Taken Unknown] COURSE Hospital Course Hospital course: Interval history: Ms. Colvin is a 81 year old female with a complex medical history who is wheelchair bound and recently has been hospitali d multiple times and spent time at multiple [facility] facilities. She says she was discharged from a [facility] facility ([facility]) on 06/08/21 to stay with her daughter. At [facility] she was treated for Clostridium difficile colitis, she says she completed treatment prior to discharge. On the day of discharge she once again developed diarrhea 15 to 20 times a day associated with crampy abdominal pain. She was incontinent of stool and urine and brought to the ED with her daughter. The patient has been extremely tired as well requiring extra assistance by family members. The patient denies chills or fevers. In the ED the patient had leukocytosis and an elevated creatine of 1.5. Stool C diff GDH/Toxin A+B panel was reported as intermediate. CT abdomen/pelvis without contrast was most remarkable for moderate colitis involving the descending and sigmoid colon. 06/14: FMS placed for diarrhea, repeat C diff GDH/Toxin A+B positive, continues oral vancomycin QID, will check abdominal xray tomorrow. AMOS resolved with IV fluid, WBC modestly improved. Will continue IV fluid today. 06/15: Improving clinically, abdominal tenderness improved, leukocytosis resolved and tolerating diet. FMS could probably be removed soon. 06/16 Diarrhea much improved. Patient feeling better. No overnight events. Patient believes this is a third episode in the last couple months. 06/17 No overnight event or new complaints. Patient's diarrhea significantly improved. 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 difficile AMOS Secondary discharge diagnosis: Diabetes A. fib hypothyroidism depression GERD obesity wheelchair-bound Time Spent with Patient Time attestation: Total time spent providing and/or coordinating discharge s ervices: Time spent: Greater than 30 minutes EXAM Constitutional Vitals: Temp Pulse Resp BP Pulse Ox 98.6 F 86 20 137/73 97 06/15/21 12:00 06/15/21 12:00 06/15/21 12:00 06/15/21 12:00 06/15/21 12:00 Discharge Data Data Completed and Pending Labs on day of discharge: Labs from last 24 hours 06/15/21 06/15/21 05:22 05:22 WBC 10.5 RBC 3.35 L Hgb 9.2 L Hct 29.3 L MCV 87.5 MCH 27.5 MCHC 31.4 RDW 17.0 H Plt Count 253 MPV 8.5 Neut % (Auto) 76.4 Lymph % (Auto) 8.7 L [place] % (Auto) 8.6 Eos % (Auto) 5.5 Baso % (Auto) 0.8 Lymph # (Auto) 0.91 L [place] # (Auto) 0.90 Eos # (Auto) 0.58 Baso # (Auto) 0.08 Absolute Neutrophils 8.05 H Sodium 134 Potassium 4.2 Chloride 103 Carbon Dioxide 19 L Anion Gap 12.0 BUN 19 Creatinine 1.0 GFR Calculation 53 Glucose 152 H Uric Acid 7.6 Calcium 9.0 Phosphorus 3.0 Magnesium 1.9 Total Bilirubin 0.2 Direct Bilirubin < 0.2 GGT 20 AST 7 ALT < 5 Alkaline Phosphatase 60 Lactate Dehydrogenase 86 L Total Protein 6.2 Albumin 2.9 L Globulin 3.3 Albumin/Globulin Ratio 0.9 L Triglycerides 102 Discharge Plan Patient/Caregiver Discharge Instructions Activity Restrictions/Additional Instructions: Referral to see gastroenterology in 5 to 14 days to evaluate for potential fecal transplant given recurrent C. difficile infections. Prescriptions: New fidaxomicin 200 mg tablet 200 mg PO BID Qty: 16 RF: 0 Continued ferrous sulfate 325 mg (65 mg iron) tablet 325 mg PO QDAY Qty: 90 RF: 2 (DME) Contour Test Strips Strip See Rx Instructions .ROUTE .MEDSUPPLY Qty: 200 RF: 11 (DME) Attends discreet bladder control pads ultimate #8 8 Qty: 1 RF: 0 levothyroxine 112 mcg tablet 112 mcg PO QDAY Qty: 90 RF: 2 duloxetine [Cymbalta] 60 mg capsule,delayed release(DR/EC) 60 mg PO BID Qty: 60 RF: 5 Januvia 100 mg tablet 100 mg PO QDAY Qty: 90 RF: 3 metoprolol tartrate 25 mg tablet 25 mg PO QDAY Qty: 30 RF: 1 oxycodone-acetaminophen 10-325 mg tablet 1 tab PO QID PRN (Reason: Pain) Qty: 120 RF: 0 polyethylene glycol 3350 [Miralax] 17 gram powder in packet 17 g PO QHS PRN (Reason: Constipation) RF: 0 amiodarone 200 mg tablet 200 mg PO QDAY RF: 0 trazodone 50 mg tablet 50 mg PO QHS PRN (Reason: Anxiety) RF: 0 Fleet Enema 19-7 gram/118 mL enema 118 ml NE ONCE PRN (Reason: constipation) RF: 0 oxybutynin chloride 10 mg tablet extended release 24hr 10 mg PO QDAY RF: 0 aspirin 81 MG tablet,delayed release (DR/EC) 81 mg PO DAILY@1800 RF: 0 cholecalciferol (vitamin D3) 2,000 UNIT capsule 2,000 unit PO DAILY@1800 RF: 0 pantoprazole 40 mg tablet,delayed release (DR/EC) 40 mg PO DAILY RF: 0 hydroxyzine HCl 50 mg Tablet 50 mg PO BID PRN (Reason: Anxiety) RF: 0 magnesium hydroxide [Milk of Magnesia] 400 mg/5 mL Suspension 30 ml PO QDAY PRN (Reason: Constipation) RF: 0 simethicone 80 mg Tablet,Chewable 80 mg PO Q6H PRN (Reason: Flatulence) RF: 0 apixaban 5 mg Tablet 5 mg PO BID RF: 0 Glucagon (HCl) Emergency Kit 1 mg Recon Soln 1 mg SUBCUT Q15M PRN (Reason: Hyperglycemia) RF: 0 lamotrigine 150 mg tablet 150 mg PO QDAY RF: 0 glimepiride 2 mg tablet 2 mg PO QDAY RF: 0 furosemide 20 mg tablet 20 mg PO QAM PRN (Reason: Edema) RF: 0 fenofibrate nanocrystallized 48 mg tablet 48 mg PO QDAY RF: 0 atorvastatin 40 mg tablet 40 mg PO QAM RF: 0 Discontinued loperamide 2 mg Capsule 2 mg PO QDAY PRN (Reason: Diarrhea) RF: 0 docusate sodium [Colace] 100 mg Capsule 100 mg PO QDAY RF: 0 Follow Up Plan Follow up with: Deanna Stuart ARNP [Primary Care Provider] - Patient Disposition: Home Health Service Prognosis: Fair Rehab Potential: Fair Overall status at discharge: patient is progressing back to baseline Discharge Orders: Discharge Order (Routine); Ordered 06/17/21 Ordered By: Braxton Whitten [facility] VTE Deep Vein Thrombosis/Pulmonary Embolism Present on Admission: No
[2021-06-15] MEDS: ASPIRIN 81 MG TAB.CHEW PO SCH (17:51)
[2021-06-15] MEDS: oxyCODONE/APAP 10/325MG TABLET PO PRN (21:35)
[2021-06-16] MEDS: ACETAMINOPHEN 325 MG TABLET PO PRN ×2 (05:09→20:13)
[2021-06-16] MEDS: 0.9 % SODIUM CHLORIDE 10 ML SYRINGE IV SCH ×3 (05:13→20:17)
[2021-06-16 07:09] LABS: Blood Urea Nitrogen 17 mg/dL (8-23); Calcium 9.1 mg/dL (8.6-10.4); Carbon Dioxide 19 mmol/L (22-30); Chloride 103 mmol/L (96-108); Glomerular Filtration Rate 61; Glucose 113 mg/dL (70-105)
--- NOTE | 2021-06-16 07:42 | Internal Med Progress Note ---
SUBJECTIVE Subjective Patient information: Note initiated : 06/16/21 at 7:41 am Service Date, if different from initiated Date: [] Patient: Ruby Colvin 81 y/o F admitted on 06/13/21 for UTI, decreased urine output. Chief Complaint: [] Interval history: Ms. Colvin is a 81 year old female with a complex medical history who is wheelchair bound and recently has been hospitalized multiple times and spent time at multiple prison facilities. She says she was discharged from a prison facility ([facility]) on 06/08/21 to stay with her daughter. At [facility] she was treated for Clostridium difficile colitis, she says she completed treatment prior to discharge. On the day of discharge she once again developed diarrhea 15 to 20 times a day associated with crampy abdominal pain. She was incontinent of stool and urine and brought to the ED with her daughter. The patient has been extremely tired as well requiring extra assistance by family members. The patient denies chills or fevers. In the ED the patient had leukocytosis and an elevated creatine of 1.5. Stool C diff GDH/Toxin A+B panel was reported as intermediate. CT abdomen/pelvis without contrast was most remarkable for moderate colitis involving the descending and sigmoid colon. 06/14: FMS placed for diarrhea, repeat C diff GDH/Toxin A+B positive, continues oral vancomycin QID, will check abdominal xray tomorrow. AMOS resolved with IV fluid, WBC modestly improved. Will continue IV fluid today. 06/15: Improving clinically, abdominal tenderness improved, leukocytosis resolved and tolerating diet. FMS could probably be removed soon. 06/16 Diarrhea much improved. Patient feeling better. No overnight events. Review of Systems: denies headache/fever/chills/nausea/vomiting/chest or abdominal pain/cough/dyspnea. Otherwise see above. Constitutional Vitals: Vital Signs Temp Pulse Resp BP Pulse Ox 97.6 F 84 20 130/68 94 06/16/21 06:55 06/16/21 06:55 06/16/21 06:55 06/16/21 06:55 06/16/21 06:55 Period Temp Pulse Resp BP Sys/Ware Pulse Ox Last 24 Hr 97.6 F-98.6 F 80-86 18-20 123-137/47-74 92-100 Intake and Output 0806/16/21 06/16/21 21:59 05:59 13:59 Intake Total 1417 Output Total 351 250 Balance 1066 -250 Weight 114.05 kg Intake & Output: Intake & Output 06/15/21 06/16/21 06/16/21 21:59 05:59 13:59 Intake Total 1417 Output Total 351 250 Balance 1066 -250 Weight 114.05 kg Intake: Oral 1417 Output: Void Amount 350 250 # of times incontinent of urine 1 Other: Meal Dinner Percent of Meal Consumed 75% Feeding Ability Assist with Tray Set Up Urine Appearance Clear Urine Color Bright Yellow Bright Yellow Bright Yellow Stool Size Small Smear Stool Color Brown Brown Stool Consistency Soft # Voids 1 1 # Bowel Movements 1 Exam: General: Alert, Awake, No acute Distress, obese Eyes/N/T: EOMI, Head/Neck: neck supple, CV: RRR, No murmurs, Pulm: Clear b/l, no wheezing/rhonchi/rales Abd: soft, +BS x4 Ext: no clubbing/cyanosis/edema Neuro: Alert, no focal deficits, moves all extremities, Skin: warm/dry OBJ DATA Labs CBC & Chem 7: 06/15/21 05:22 06/16/21 05:23 Labs: Abnormal Lab Results 06/16/21 06/15/21 06/15/21 05:23 05:22 05:22 WBC RBC 3.35 L Hgb 9.2 L Hct 29.3 L POC Hct RDW 17.0 H Neut % (Auto) Lymph % (Auto) 8.7 L Lymph # (Auto) 0.91 L [place] # (Auto) Absolute Neutrophils 8.05 H POC Sodium Sodium Carbon Dioxide 19 L 19 L POC Total CO2 POC BUN BUN Creatinine POC Creatinine Glucose 113 H 152 H POC Glucose Uric Acid Magnesium Lactate Dehydrogenase 86 L Albumin 2.9 L Albumin/Globulin Ratio 0.9 L Urine Appearance Ur Leukocyte Esterase Urine WBC Hyaline Casts Urine Mucus 06/14/21 06/14/21 06/13/21 05:35 05:35 14:57 WBC 15.3 H RBC Hgb 9.8 L Hct 31.3 L POC Hct RDW 17.2 H Neut % (Auto) 83.2 H Lymph % (Auto) 5.9 L Lymph # (Auto) 0.91 L [place] # (Auto) 1.24 H Absolute Neutrophils 12.73 H POC Sodium Sodium Carbon Dioxide 19 L POC Total CO2 POC BUN BUN 27 H Creatinine POC Creatinine Glucose 173 H POC Glucose Uric Acid 8.3 H Magnesium 1.5 L Lactate Dehydrogenase 101 L Albumin 3.1 L Albumin/Globulin Ratio 0.9 L Urine Appearance Hazy A Ur Leukocyte Esterase 75 A Urine WBC 6 H Hyaline Casts 4 H Urine Mucus Few A 06/13/21 06/13/21 14:53 14:53 WBC 16.3 H RBC 3.50 L Hgb 9.7 L Hct 29.6 L POC Hct 30 L RDW 17.1 H Neut % (Auto) 83.7 H Lymph % (Auto) 5.0 L Lymph # (Auto) 0.82 L [place] # (Auto) 1.37 H Absolute Neutrophils 13.67 H POC Sodium 132 L Sodium 130 L Carbon Dioxide 20 L POC Total CO2 21 L POC BUN 32 H BUN 32 H Creatinine 1.5 H POC Creatinine 1.5 H Glucose 109 H POC Glucose 113 H Uric Acid Magnesium Lactate Dehydrogenase Albumin Albumin/Globulin Ratio Urine Appearance Ur Leukocyte Esterase Urine WBC Hyaline Casts Urine Mucus Meds: Medications Acetaminophen (Acetaminophen 325 Mg Tablet) 650 mg PO Q6HP PRN; Protocol PRN Reason: Per Pain Protocol/Fever > 101 Last Admin: 06/16/21 05:09 Dose: 650 mg Documented by: Amiodarone HCl (Amiodarone Hcl 200 Mg Tablet) 200 mg PO [facility] Last Admin: 06/15/21 09:55 Dose: 200 mg Documented by: Apixaban (Apixaban 5 Mg Tablet) 5 mg PO BID [facility] Last Admin: 06/15/21 20:49 Dose: 5 mg Documented by: Aspirin (Aspirin 81 Mg Tab.Chew) 81 mg PO DAILY@1800 [facility] Last Admin: 06/15/21 17:51 Dose: 81 mg Documented by: Atorvastatin Calcium (Atorvastatin 40 Mg Tablet) 40 mg PO [facility] Last Admin: 06/15/21 09:46 Dose: 40 mg Documented by: Dextrose (Dextrose 50% 50 Ml Vial) 0 ml IV UD PRN PRN Reason: Hypoglycemia Diagnostic Test (Pha) (Accu-Chek 1 Each Strip) 1 each FS ACHS [facility] Last Admin: 06/15/21 20:48 Dose: 1 each Documented by: Duloxetine HCl (Duloxetine 30 Mg Capsule) 60 mg PO BID [facility] Last Admin: 06/15/21 20:49 Dose: 60 mg Documented by: Glucose (Dextrose 31 Gm Oral.Susp) 15 gm PO PRN PRN PRN Reason: Hypoglycemia Hydroxyzine HCl (Hydroxyzine 25 Mg Tablet) 50 mg PO BIDP PRN PRN Reason: Anxiety Insulin Human Lispro (Insulin Lispro 1 Unit/0.01 Ml Unit) 0 unit SQ ACHS [facility]; Protocol Last Admin: 06/15/21 20:48 Dose: 1 units Documented by: Lamotrigine (Lamotrigine 100 Mg Tablet) 150 mg PO DAILY [facility] Last Admin: 06/15/21 09:46 Dose: 150 mg Documented by: Levothyroxine Sodium (Levothyroxine Sodium 112 Mcg Tablet) 112 mcg PO ACB [facility] Last Admin: 06/15/21 08:10 Dose: 112 mcg Documented by: Metoprolol Tartrate (Metoprolol Tartrate 25 Mg Tablet) 25 mg PO QDAY [facility] Last Admin: 06/15/21 09:46 Dose: 25 mg Documented by: Ondansetron HCl (Ondansetron 4 Mg/2 Ml Vial) 4 mg IV Q6HP PRN PRN Reason: Nausea And Vomiting Oxybutynin Chloride (Oxybutynin Chloride 5 Mg Tab.Xl.24h) 10 mg PO DAILY [facility] Last Admin: 06/15/21 09:46 Dose: 10 mg Documented by: Oxycodone/Acetaminophen (Oxycodone/Apap 10/325mg Tablet) 1 tab PO QIDP PRN; Protocol PRN Reason: Pain Last Admin: 06/15/21 21:35 Dose: 1 tab Documented by: Pantoprazole Sodium (Pantoprazole 40 Mg Tablet) 40 mg PO ACB [facility] Last Admin: 06/15/21 08:10 Dose: 40 mg Documented by: Sodium Chloride (0.9 % Sodium Chloride 10 Ml Syringe) 10 ml IV Q8 [facility] Last Admin: 06/16/21 05:13 Dose: 10 ml Documented by: Trazodone HCl (Trazodone Hcl 50 Mg Tablet) 50 mg PO HSP PRN PRN Reason: Anxiety Vancomycin HCl (Vancomycin Oral Lucía 1,000 Mg/10 Ml Bottle) 250 mg PO QID [facility] Last Admin: 06/15/21 20:50 Dose: 250 mg Documented by: A/P Narrative A/P Narrative: A: #Severe recurrent Clostridium difficile colitis: ?3rd episode #AMOS: Resolved #Type 2 diabetes mellitus #Atrial fibrillation #Hypothyroidism #Depression #GERD #Overactive bladder #Obesity: BMI 49 #Wheelchair bound status #Recurrent hospitalizations Plan: -apparently we don't have Fidaxomicin, on vanco now but will d/c on fidaxomicin; f/u with GI for possible fecal transplant -Follow CBC and inpatient panel. -Monitor and replace electrolytes prn. -SSI for now -Continue essential home medications. -Monitor stool output, has FMS. -DVT ppx: on Eliquis Code status: Director Of Assisted Living Spent With Patient Time: Total time spent is greater than 50% in coordination of care (as documented) at patient's floor/unit and/or counseling patient: [facility] VTE Deep Vein Thrombosis/Pulmonary Embolism Present on Admission: No
[2021-06-16] MEDS: AMIODARONE HCL 200 MG TABLET PO SCH (07:59)
[2021-06-16] MEDS: PANTOPRAZOLE 40 MG TABLET PO SCH (07:59)
[2021-06-16] MEDS: INSULIN LISPRO 1 UNIT/0.01 ML UNIT SQ SCH ×4 (07:59→20:17)
[2021-06-16] MEDS: LEVOTHYROXINE SODIUM 112 MCG TABLET PO SCH (07:59)
[2021-06-16] MEDS: OXYBUTYNIN CHLORIDE 5 MG TAB.XL.24H PO SCH (09:15)
[2021-06-16] MEDS: APIXABAN 5 MG TABLET PO SCH ×2 (09:15→20:13)
[2021-06-16] MEDS: DULoxetine 30 MG CAPSULE PO SCH ×2 (09:16→20:13)
[2021-06-16] MEDS: ATORVASTATIN 40 MG TABLET PO SCH (09:16)
[2021-06-16] MEDS: lamoTRIgine 100 MG TABLET PO SCH (09:16)
[2021-06-16] MEDS: METOPROLOL TARTRATE 25 MG TABLET PO SCH (09:17)
[2021-06-16] MEDS: VANCOMYCIN ORAL SOL 1,000 MG/10 ML BOTTLE PO SCH ×4 (11:42→20:14)
[2021-06-16] MEDS: ASPIRIN 81 MG TAB.CHEW PO SCH (17:27)
[2021-06-17] MEDS ORDERED: ALBUMIN HUMAN 12.5 GM/50 ML BAG IV ONE (07:44)
[2021-06-17] MEDS ORDERED: FUROSEMIDE 40 MG/4 ML VIAL IV ONE (07:44)
[2021-06-17] MEDS: ATORVASTATIN 40 MG TABLET PO SCH (07:45)
[2021-06-17] MEDS: lamoTRIgine 100 MG TABLET PO SCH (07:45)
[2021-06-17] MEDS: LEVOTHYROXINE SODIUM 112 MCG TABLET PO SCH (07:45)
[2021-06-17] MEDS: PANTOPRAZOLE 40 MG TABLET PO SCH (07:45)
[2021-06-17] MEDS: METOPROLOL TARTRATE 25 MG TABLET PO SCH (07:45)
[2021-06-17] MEDS: APIXABAN 5 MG TABLET PO SCH (07:45)
[2021-06-17] MEDS: 0.9 % SODIUM CHLORIDE 10 ML SYRINGE IV SCH ×2 (07:46→12:42)
[2021-06-17] MEDS: OXYBUTYNIN CHLORIDE 5 MG TAB.XL.24H PO SCH (07:46)
[2021-06-17] MEDS: DULoxetine 30 MG CAPSULE PO SCH (07:46)
[2021-06-17] MEDS: AMIODARONE HCL 200 MG TABLET PO SCH (07:47)
[2021-06-17] MEDS: INSULIN LISPRO 1 UNIT/0.01 ML UNIT SQ SCH ×2 (08:11→12:12)
[2021-06-17] MEDS: VANCOMYCIN ORAL SOL 1,000 MG/10 ML BOTTLE PO SCH ×2 (12:10→12:11)
--- NOTE | 2021-07-01 08:23 | EKG ---
[facility] Test Date: 2021-06-13 Pat Name: Ruby Colvin Department: ED Room: Gender: Female [employer]ting [employer] Operator: SB : 1940 Requested By: Chey Pace Order Number: [id number] Reading MD: Maxime Adler Measurements Intervals [place] Rate: 96 P: MS: QRS: -61 QRSD: 96 T: 43 QT: 368 QTc: 465 Interpretive Statements ATRIAL FIBRILLATION, V-RATE 78-116 RBBB Leftward axis Not significantly changed from prior Electronically Signed On 07-01-2021 8:22:48 PDT by Maxime Adler /store/[id number]
== END 2021-06-17 13:53 | disposition home health service (06) | DRG 372 ==
LOC: ED 13:36 → MEDSUR 21:52
PROVIDERS: ADMIT Internal Medicine; ATTEND Internal Medicine

== ENCOUNTER 2023-10-06 08:49 | Inpatient (IN) ==
[2023-10-06] MEDS ORDERED: IPRATROPIUM/ALBUTEROL 3 ML AMPUL.NEB NEB ONE (08:58)
[2023-10-06] MEDS ORDERED: methylPREDNISolone SOD SUCC 125 MG/2 ML VIAL IV ONE (08:58)
[2023-10-06 09:21] LABS: POC Calcium, Ionized 1.12 (1.16-1.32); POC Creatinine 1.1 (0.6-1.2); POC Potassium 5.1 (3.3-5.1)
[2023-10-06 10:00] LABS: Basophils # (Auto) 0.04 K/mcL (0.00-0.30); Basophils % (Auto) 0.2 % (0.0-2.0); Eosinophils # (Auto) 0.03 K/mcL (0.00-0.70); Eosinophils % (Auto) 0.2 % (0.0-7.0); Hematocrit 36.2 % (34.1-44.9); Hemoglobin 11.2 g/dL (11.2-15.7); Lymphocytes % (Auto) 2.3 % (15.5-49.0); Mean Cell Volume 77.2 fL (80.0-100.0); Mean Corpuscular HGB Conc 30.9 g/dL (31.0-36.0); Mean Platelet Volume 8.7 fL (8.8-12.5); Monocytes # (Auto) 1.75 K/mcL (0.10-0.90); Monocytes % (Auto) 9.9 % (1.0-12.0); Neutrophils % (Auto) 86.1 % (38.0-78.0); Platelet Count 323 K/mcL (140-440); RBC 4.69 M/mcL (3.59-5.38); Red Cell Distribution Width 16.6 % (11.5-14.5); WBC 17.7 K/mcL (4.5-11.0)
[2023-10-06 10:26] LABS: ALT/SGPT 8 U/L (<40); AST/SGOT 16 U/L (<32); Albumin 3.1 gm/dL (3.2-5.2); Alkaline Phosphatase 119 U/L (39-117); Bilirubin,Direct < 0.2 mg/dL (0-0.3); Bilirubin,Total 0.5 mg/dL (0.1-1.0); Globulin 4.4 gm/dL (2.2-3.7)
[2023-10-06] MEDS ORDERED: AZITHROMYCIN 500 MG in DEXTROSE 5% IN WATER 250 ML IV ONE (10:33)
[2023-10-06] MEDS ORDERED: AMPICILLIN SODIUM/SULBACTAM NA 3 GM in 0.9 % SODIUM CHLORIDE 100 ML IV SCH (10:45)
[2023-10-06] MEDS ORDERED: ONDANSETRON 4 MG/2 ML VIAL IV ONE (12:19)
[2023-10-06] MEDS ORDERED: ONDANSETRON 4 MG ODT TABLET SL ONE (12:22)
[2023-10-06] MEDS ORDERED: ACETAMINOPHEN 1,000 MG/100 ML BAG IV ONE (12:50)
[2023-10-06] MEDS ORDERED: DEXTROSE 31 GM ORAL.SUSP PO PRN (13:22)
[2023-10-06] MEDS ORDERED: DEXTROSE 50% 50 ML VIAL IV PRN (13:22)
[2023-10-06] MEDS ORDERED: NALOXONE HCL 0.4 MG/ML VIAL IV PRN (13:59)
[2023-10-06] MEDS ORDERED: SENNOSIDES 1 TABLET PO PRN (13:59)
[2023-10-06] MEDS ORDERED: HYDROcodone/APAP 5/325MG TABLET PO PRN (13:59)
[2023-10-06] MEDS ORDERED: ONDANSETRON 4 MG/2 ML VIAL IV PRN (13:59)
[2023-10-06] MEDS ORDERED: LACTULOSE 20 GM/30 ML ORAL.SOL PO PRN (13:59)
[2023-10-06] MEDS: IPRATROPIUM/ALBUTEROL 3 ML AMPUL.NEB NEB SCH ×3 (14:17→21:34)
[2023-10-06] MEDS: 0.9 % SODIUM CHLORIDE 10 ML SYRINGE IV SCH ×2 (14:25→21:04)
[2023-10-06 14:35] LABS: ALT/SGPT 11 U/L (<40); AST/SGOT 20 U/L (<32); Albumin 3.2 gm/dL (3.2-5.2); Albumin/Globulin Ratio 0.7 (1.0-2.3); Alkaline Phosphatase 119 U/L (39-117); Bilirubin,Total 0.5 mg/dL (0.1-1.0); Blood Urea Nitrogen 26 mg/dL (8-23); Calcium 9.5 mg/dL (8.6-10.4); Carbon Dioxide 22 mmol/L (22-30); Chloride 89 mmol/L (96-108); Globulin 4.5 gm/dL (2.2-3.7); Glomerular Filtration Rate 47; Glucose 207 mg/dL (70-105)
[2023-10-06 14:36] LABS: Estimated Average Glucose(eAG) 209 mg/dL; Hemoglobin A1C 8.9 % Hgb (4.0-6.0)
[2023-10-06] MEDS: methylPREDNISolone SOD SUCC 40 MG/ML VIAL IV SCH ×2 (15:12→21:04)
[2023-10-06] MEDS: INSULIN LISPRO 1 UNIT/0.01 ML UNIT SQ SCH ×2 (16:04→21:03)
[2023-10-06] MEDS: DOCUSATE SODIUM 100 MG CAPSULE PO SCH (21:03)
[2023-10-06] MEDS: guaiFENesin 600 MG TAB.SR.12H PO SCH (21:03)
[2023-10-06] MEDS: BENZONATATE 100 MG CAPSULE PO SCH (21:03)
[2023-10-06] MEDS: BUDESONIDE 0.5 MG/2 ML AMPUL.NEB NEB SCH (21:34)
[2023-10-07] MEDS: methylPREDNISolone SOD SUCC 40 MG/ML VIAL IV SCH ×3 (05:30→21:15)
[2023-10-07] MEDS: 0.9 % SODIUM CHLORIDE 10 ML SYRINGE IV SCH ×3 (05:30→20:24)
[2023-10-07 06:42] LABS: ABG Methemoglobin 0.2 % (0.4-1.5); Total Hemoglobin 12.9 gm/Dl (12.0-15.0); VBG Base Excess 1 (-2-3); VBG HCO3 26.2 mmol/L (24.0-28.0); VBG Oxygen Saturation 91.5 % (40.0-70.0); VBG PCO2 42.8 mmHg (41.0-51.0); VBG PH 7.41 U (7.32-7.42); VBG PO2 105.8 mmHg (25.0-40.0); VBG Total CO2 27.5 mmol/L (25.0-29.0)
[2023-10-07 06:57] LABS: Basophils # (Auto) 0.05 K/mcL (0.00-0.30); Basophils % (Auto) 0.3 % (0.0-2.0); Eosinophils # (Auto) 0.02 K/mcL (0.00-0.70); Eosinophils % (Auto) 0.1 % (0.0-7.0); Hematocrit 37.2 % (34.1-44.9); Hemoglobin 11.2 g/dL (11.2-15.7); Lymphocytes # (Auto) 0.55 K/mcL (1.50-4.80); Lymphocytes % (Auto) 2.8 % (15.5-49.0); Mean Cell Volume 78.3 fL (80.0-100.0); Mean Corpuscular HGB Conc 30.1 g/dL (31.0-36.0); Mean Platelet Volume 8.7 fL (8.8-12.5); Monocytes # (Auto) 0.94 K/mcL (0.10-0.90); Monocytes % (Auto) 4.7 % (1.0-12.0); Neutrophils % (Auto) 90.3 % (38.0-78.0); Platelet Count 334 K/mcL (140-440); RBC 4.75 M/mcL (3.59-5.38); Red Cell Distribution Width 16.6 % (11.5-14.5)
[2023-10-07] MEDS: ACETAMINOPHEN 325 MG TABLET PO PRN (07:04)
[2023-10-07] MEDS: BENZONATATE 100 MG CAPSULE PO SCH ×2 (07:05→20:23)
[2023-10-07] MEDS: INSULIN LISPRO 1 UNIT/0.01 ML UNIT SQ SCH ×4 (07:13→20:23)
[2023-10-07 07:20] LABS: ALT/SGPT 7 U/L (<40); AST/SGOT 11 U/L (<32); Albumin 2.8 gm/dL (3.2-5.2); Albumin/Globulin Ratio 0.6 (1.0-2.3); Alkaline Phosphatase 111 U/L (39-117); Bilirubin,Total 0.3 mg/dL (0.1-1.0); Blood Urea Nitrogen 40 mg/dL (8-23); Calcium 9.8 mg/dL (8.6-10.4); Carbon Dioxide 26 mmol/L (22-30); Chloride 93 mmol/L (96-108); Globulin 4.7 gm/dL (2.2-3.7); Glomerular Filtration Rate 38; Glucose 312 mg/dL (70-105)
[2023-10-07] MEDS: cefTRIAXone 2 GM in DEXTROSE 5% IN WATER 50 ML IV SCH (09:02)
[2023-10-07] MEDS: DOCUSATE SODIUM 100 MG CAPSULE PO SCH ×2 (09:02→20:23)
[2023-10-07] MEDS: guaiFENesin 600 MG TAB.SR.12H PO SCH ×2 (09:02→20:22)
[2023-10-07] MEDS: BUDESONIDE 0.5 MG/2 ML AMPUL.NEB NEB SCH ×2 (09:15→20:39)
[2023-10-07] MEDS: IPRATROPIUM/ALBUTEROL 3 ML AMPUL.NEB NEB SCH ×4 (09:15→20:39)
[2023-10-07] MEDS: AZITHROMYCIN 500 MG in DEXTROSE 5% IN WATER 250 ML IV SCH (09:39)
[2023-10-07] MEDS ORDERED: MAGNESIUM SULFATE 4 GM/100 ML BAG IV ONE (11:00)
[2023-10-07] MEDS ORDERED: BISACODYL 10 MG SUPP.RECT PR PRN (15:36)
[2023-10-07] MEDS ORDERED: FLEETS ADULT 1 DOSE ENEMA PR PRN (15:36)
[2023-10-07] MEDS ORDERED: MAGNESIUM HYDROXIDE 30 ML ORAL.SUSP PO PRN (15:36)
[2023-10-07] MEDS ORDERED: INSULIN GLARGINE, HUMAN 1 UNIT/0.01 ML SQ SCH (15:40)
[2023-10-07] MEDS ORDERED: ERGOCALCIFEROL 50000 UNIT PO SCH (15:45)
[2023-10-07] MEDS ORDERED: [UNRECOGNIZED DRUG - OTHER] PO SCH (15:45)
[2023-10-07] MEDS ORDERED: INSULIN LISPRO 1 UNIT/0.01 ML UNIT SQ SCH (15:58)
[2023-10-07] MEDS ORDERED: ONDANSETRON 4 MG ODT TABLET SL PRN (15:58)
[2023-10-07] MEDS ORDERED: oxyCODONE/APAP 5/325MG TABLET PO PRN (16:03)
[2023-10-07] MEDS ORDERED: GLUCAGON,HUMAN RECOMBINANT 1 MG VIAL IV PRN (16:04)
[2023-10-07] MEDS: sitaGLIPtin 50 MG TABLET PO SCH (16:12)
[2023-10-07] MEDS ORDERED: LABETALOL HCL 20 MG/4 ML VIAL IV PRN (16:33)
[2023-10-07] MEDS: glipiZIDE 2.5 MG TAB.XL.24H PO SCH (16:41)
[2023-10-07] MEDS: hydrALAZINE 20 MG/ML VIAL IV PRN (17:15)
[2023-10-07] MEDS: busPIRone 15 MG TABLET PO SCH (20:23)
[2023-10-07] MEDS: traZODone HCL 50 MG TABLET PO SCH (20:23)
[2023-10-07] MEDS: SENNOSIDES 1 TABLET PO SCH (20:23)
[2023-10-08] MEDS: INSULIN LISPRO 1 UNIT/0.01 ML UNIT SQ SCH ×7 (00:18→23:38)
[2023-10-08] MEDS: 0.9 % SODIUM CHLORIDE 10 ML SYRINGE IV SCH ×3 (05:27→20:58)
[2023-10-08] MEDS: methylPREDNISolone SOD SUCC 40 MG/ML VIAL IV SCH ×2 (05:27→21:01)
[2023-10-08 06:55] LABS: Basophils # (Auto) 0.04 K/mcL (0.00-0.30); Basophils % (Auto) 0.2 % (0.0-2.0); Eosinophils # (Auto) 0 K/mcL (0.00-0.70); Eosinophils % (Auto) 0 % (0.0-7.0); Hematocrit 34.6 % (34.1-44.9); Hemoglobin 10.6 g/dL (11.2-15.7); Lymphocytes # (Auto) 0.69 K/mcL (1.50-4.80); Lymphocytes % (Auto) 3.2 % (15.5-49.0); Mean Cell Volume 77.6 fL (80.0-100.0); Mean Corpuscular HGB Conc 30.6 g/dL (31.0-36.0); Mean Platelet Volume 8.9 fL (8.8-12.5); Monocytes # (Auto) 0.76 K/mcL (0.10-0.90); Monocytes % (Auto) 3.5 % (1.0-12.0); Neutrophils % (Auto) 89.4 % (38.0-78.0); Platelet Count 378 K/mcL (140-440); RBC 4.46 M/mcL (3.59-5.38); Red Cell Distribution Width 16.7 % (11.5-14.5); WBC 21.7 K/mcL (4.5-11.0)
[2023-10-08] MEDS: LEVOTHYROXINE 125 MCG TABLET PO SCH (07:06)
[2023-10-08] MEDS: PANTOPRAZOLE 40 MG TABLET PO SCH (07:06)
[2023-10-08] MEDS: AMIODARONE HCL 200 MG TABLET PO SCH (07:06)
[2023-10-08] MEDS: BENZONATATE 100 MG CAPSULE PO SCH ×2 (07:06→20:57)
[2023-10-08 07:33] LABS: ALT/SGPT 7 U/L (<40); AST/SGOT 10 U/L (<32); Albumin 2.8 gm/dL (3.2-5.2); Albumin/Globulin Ratio 0.6 (1.0-2.3); Alkaline Phosphatase 108 U/L (39-117); Bilirubin,Total 0.2 mg/dL (0.1-1.0); Blood Urea Nitrogen 49 mg/dL (8-23); Calcium 9.5 mg/dL (8.6-10.4); Carbon Dioxide 25 mmol/L (22-30); Chloride 93 mmol/L (96-108); Globulin 4.4 gm/dL (2.2-3.7); Glomerular Filtration Rate 42; Glucose 271 mg/dL (70-105)
[2023-10-08] MEDS: glipiZIDE 2.5 MG TAB.XL.24H PO SCH (07:42)
[2023-10-08] MEDS ORDERED: glipiZIDE 2.5 MG TAB.XL.24H PO ONE (08:00)
[2023-10-08] MEDS: ATORVASTATIN 40 MG TABLET PO SCH (08:47)
[2023-10-08] MEDS: sitaGLIPtin 50 MG TABLET PO SCH (08:47)
[2023-10-08] MEDS: busPIRone 15 MG TABLET PO SCH ×2 (08:47→20:57)
[2023-10-08] MEDS: DULoxetine 30 MG CAPSULE PO SCH (08:47)
[2023-10-08] MEDS: guaiFENesin 600 MG TAB.SR.12H PO SCH ×2 (08:48→20:57)
[2023-10-08] MEDS: DOCUSATE SODIUM 100 MG CAPSULE PO SCH ×2 (08:48→19:41)
[2023-10-08] MEDS: cefTRIAXone 2 GM in DEXTROSE 5% IN WATER 50 ML IV SCH (08:59)
[2023-10-08] MEDS ORDERED: INSULIN GLARGINE, HUMAN 1 UNIT/0.01 ML SQ SCH (09:00)
[2023-10-08] MEDS: IPRATROPIUM/ALBUTEROL 3 ML AMPUL.NEB NEB SCH ×4 (09:25→21:12)
[2023-10-08] MEDS: BUDESONIDE 0.5 MG/2 ML AMPUL.NEB NEB SCH ×2 (09:25→21:12)
[2023-10-08] MEDS: AZITHROMYCIN 500 MG in DEXTROSE 5% IN WATER 250 ML IV SCH (09:47)
[2023-10-08] MEDS ORDERED: VANCOMYCIN PER PHARMACY IV SCH (17:00)
[2023-10-08] MEDS ORDERED: VANCOMYCIN 1,500 MG in 0.9 % SODIUM CHLORIDE 500 ML IV SCH (18:00)
[2023-10-08] MEDS ORDERED: PIPERACILLIN SODIUM/TAZOBACTAM 3.375 GM in DEXTROSE 5% IN WATER 50 ML IV ONE (18:00)
[2023-10-08] MEDS: SENNOSIDES 1 TABLET PO SCH (19:41)
[2023-10-08] MEDS: traZODone HCL 50 MG TABLET PO SCH (20:57)
[2023-10-08] MEDS: PIPERACILLIN SODIUM/TAZOBACTAM 3.375 GM in DEXTROSE 5% IN WATER 100 ML IV SCH (23:33)
[2023-10-09] MEDS: 0.9 % SODIUM CHLORIDE 10 ML SYRINGE IV SCH ×3 (05:49→20:22)
[2023-10-09] MEDS: INSULIN LISPRO 1 UNIT/0.01 ML UNIT SQ SCH ×5 (05:49→20:32)
[2023-10-09 06:42] LABS: Hematocrit 36.5 % (34.1-44.9); Hemoglobin 10.8 g/dL (11.2-15.7); Mean Cell Volume 79.9 fL (80.0-100.0); Mean Corpuscular HGB Conc 29.6 g/dL (31.0-36.0); Mean Platelet Volume 8.4 fL (8.8-12.5); Platelet Count 346 K/mcL (140-440); RBC 4.57 M/mcL (3.59-5.38); Red Cell Distribution Width 16.7 % (11.5-14.5); WBC 18.8 K/mcL (4.5-11.0)
[2023-10-09] MEDS: BUDESONIDE 0.5 MG/2 ML AMPUL.NEB NEB SCH (07:00)
[2023-10-09] MEDS: IPRATROPIUM/ALBUTEROL 3 ML AMPUL.NEB NEB SCH ×4 (07:00→21:40)
[2023-10-09 07:19] LABS: ALT/SGPT 7 U/L (<40); AST/SGOT 12 U/L (<32); Albumin 2.8 gm/dL (3.2-5.2); Albumin/Globulin Ratio 0.7 (1.0-2.3); Alkaline Phosphatase 96 U/L (39-117); Bilirubin,Direct < 0.2 mg/dL (0-0.3); Bilirubin,Total 0.2 mg/dL (0.1-1.0); Blood Urea Nitrogen 46 mg/dL (8-23); Calcium 9.2 mg/dL (8.6-10.4); Carbon Dioxide 25 mmol/L (22-30); Chloride 97 mmol/L (96-108); Globulin 3.8 gm/dL (2.2-3.7); Glomerular Filtration Rate 53; Glucose 172 mg/dL (70-105); Lactate Dehydrogenase 101 U/L (135-225); Phosphorous 3.5 mg/dL (2.5-4.5); Triglycerides 106 mg/dL (<150); Uric Acid 9.6 mg/dL (2.5-8.0)
[2023-10-09] MEDS: DOCUSATE SODIUM 100 MG CAPSULE PO SCH ×2 (07:59→20:22)
[2023-10-09] MEDS: PIPERACILLIN SODIUM/TAZOBACTAM 3.375 GM in DEXTROSE 5% IN WATER 100 ML IV SCH ×3 (08:35→23:16)
[2023-10-09] MEDS: AZITHROMYCIN 500 MG in DEXTROSE 5% IN WATER 250 ML IV SCH (08:35)
[2023-10-09] MEDS: sitaGLIPtin 50 MG TABLET PO SCH (08:36)
[2023-10-09] MEDS: DULoxetine 30 MG CAPSULE PO SCH (08:36)
[2023-10-09] MEDS: busPIRone 15 MG TABLET PO SCH ×2 (08:36→20:20)
[2023-10-09] MEDS: methylPREDNISolone SOD SUCC 40 MG/ML VIAL IV SCH (08:36)
[2023-10-09] MEDS: glipiZIDE 5 MG TAB.XL.24H PO SCH (08:36)
[2023-10-09] MEDS: guaiFENesin 600 MG TAB.SR.12H PO SCH ×2 (08:37→20:21)
[2023-10-09] MEDS: AMIODARONE HCL 200 MG TABLET PO SCH (08:37)
[2023-10-09] MEDS: ATORVASTATIN 40 MG TABLET PO SCH (08:37)
[2023-10-09] MEDS: PANTOPRAZOLE 40 MG TABLET PO SCH (08:37)
[2023-10-09] MEDS: LEVOTHYROXINE 125 MCG TABLET PO SCH (08:37)
[2023-10-09] MEDS: ACETAMINOPHEN 325 MG TABLET PO PRN (08:38)
[2023-10-09 09:42] LABS: Anisocytosis 2+ (None Seen); Band Neutrophils % 1 % (0-10); Lymphocytes % 5 % (15-49); Monocytes % (Manual) 2 % (1-12); Platelet Estimate NORMAL (Normal); RBC Morphology ABNORMAL (Normal); Segmented Neutrophils % 92 % (38-78)
[2023-10-09] MEDS: INSULIN GLARGINE, HUMAN 1 UNIT/0.01 ML SQ SCH (11:07)
[2023-10-09 11:12] LABS: Vancomycin,Random 12.9 ug/mL
[2023-10-09] MEDS: predniSONE 20 MG TABLET PO SCH (17:03)
[2023-10-09] MEDS: traZODone HCL 50 MG TABLET PO SCH (20:21)
[2023-10-09] MEDS: SENNOSIDES 1 TABLET PO SCH (20:22)
[2023-10-10] MEDS: INSULIN LISPRO 1 UNIT/0.01 ML UNIT SQ SCH ×3 (00:18→09:23)
[2023-10-10] MEDS: 0.9 % SODIUM CHLORIDE 10 ML SYRINGE IV SCH (04:05)
[2023-10-10] MEDS: hydrALAZINE 20 MG/ML VIAL IV PRN (04:05)
[2023-10-10] MEDS: PIPERACILLIN SODIUM/TAZOBACTAM 3.375 GM in DEXTROSE 5% IN WATER 100 ML IV SCH (06:55)
[2023-10-10] MEDS: IPRATROPIUM/ALBUTEROL 3 ML AMPUL.NEB NEB SCH (07:14)
[2023-10-10] MEDS: BUDESONIDE 0.5 MG/2 ML AMPUL.NEB NEB SCH ×2 (07:15→09:20)
[2023-10-10] MEDS ORDERED: FUROSEMIDE 40 MG/4 ML VIAL IV SCH (07:39)
[2023-10-10 07:40] LABS: ALT/SGPT 8 U/L (<40); AST/SGOT 10 U/L (<32); Albumin/Globulin Ratio 0.8 (1.0-2.3); Alkaline Phosphatase 98 U/L (39-117); Bilirubin,Direct < 0.2 mg/dL (0-0.3); Bilirubin,Total 0.2 mg/dL (0.1-1.0); Blood Urea Nitrogen 36 mg/dL (8-23); Calcium 9.3 mg/dL (8.6-10.4); Carbon Dioxide 25 mmol/L (22-30); Chloride 99 mmol/L (96-108); Glomerular Filtration Rate 60; Glucose 127 mg/dL (70-105); Lactate Dehydrogenase 159 U/L (135-225); Phosphorous 3.2 mg/dL (2.5-4.5); Triglycerides 124 mg/dL (<150); Uric Acid 7.3 mg/dL (2.5-8.0)
[2023-10-10 08:10] LABS: Basophils # (Auto) 0.01 K/mcL (0.00-0.30); Basophils % (Auto) 0 % (0.0-2.0); Eosinophils # (Auto) 0 K/mcL (0.00-0.70); Eosinophils % (Auto) 0 % (0.0-7.0); Hemoglobin 11.4 g/dL (11.2-15.7); Lymphocytes # (Auto) 0.91 K/mcL (1.50-4.80); Lymphocytes % (Auto) 4.4 % (15.5-49.0); Mean Cell Volume 78.5 fL (80.0-100.0); Mean Platelet Volume 8.5 fL (8.8-12.5); Monocytes # (Auto) 1.15 K/mcL (0.10-0.90); Monocytes % (Auto) 5.6 % (1.0-12.0); Neutrophils % (Auto) 78.3 % (38.0-78.0); Platelet Count 410 K/mcL (140-440); RBC 4.84 M/mcL (3.59-5.38); Red Cell Distribution Width 16.8 % (11.5-14.5); WBC 20.6 K/mcL (4.5-11.0)
[2023-10-10] MEDS: DOCUSATE SODIUM 100 MG CAPSULE PO SCH (08:30)
[2023-10-10] MEDS ORDERED: FUROSEMIDE 20 MG TABLET PO SCH (09:00)
[2023-10-10] MEDS: glipiZIDE 5 MG TAB.XL.24H PO SCH (09:21)
[2023-10-10] MEDS: LEVOTHYROXINE 125 MCG TABLET PO SCH (09:22)
[2023-10-10] MEDS: PANTOPRAZOLE 40 MG TABLET PO SCH (09:22)
[2023-10-10] MEDS: busPIRone 15 MG TABLET PO SCH (09:23)
[2023-10-10] MEDS: sitaGLIPtin 50 MG TABLET PO SCH (09:23)
[2023-10-10] MEDS: AMIODARONE HCL 200 MG TABLET PO SCH (09:23)
[2023-10-10] MEDS: INSULIN GLARGINE, HUMAN 1 UNIT/0.01 ML SQ SCH (09:23)
[2023-10-10] MEDS: DULoxetine 30 MG CAPSULE PO SCH (09:23)
[2023-10-10] MEDS: guaiFENesin 600 MG TAB.SR.12H PO SCH (09:24)
[2023-10-10] MEDS: ATORVASTATIN 40 MG TABLET PO SCH (09:24)
[2023-10-10] MEDS: predniSONE 20 MG TABLET PO SCH (09:24)
[2023-10-10] MEDS: ACETAMINOPHEN 325 MG TABLET PO PRN (09:24)
[2023-10-10] MEDS: BENZONATATE 100 MG CAPSULE PO SCH (09:25)
[2023-10-10] MEDS: AZITHROMYCIN 500 MG in DEXTROSE 5% IN WATER 250 ML IV SCH (09:38)
[2023-10-10] MEDS ORDERED: INSULIN LISPRO 1 UNIT/0.01 ML UNIT SQ SCH (11:30)
[2023-10-10] MEDS ORDERED: ENOXAPARIN 100 MG/ML SYRINGE SQ ONE (11:57)
[2023-10-11] MEDS ORDERED: predniSONE 20 MG TABLET PO SCH (09:00)
[2023-10-11] MEDS ORDERED: FUROSEMIDE 20 MG TABLET PO SCH (09:00)
== END 2023-10-10 13:15 | DRG 871 ==
LOC: ED 08:49 → ICU 13:59
PROVIDERS: ADMIT Internal Medicine; ATTEND Internal Medicine